=== PATIENT | female | born 1950 | race Caucasian/White ===

== ENCOUNTER 2017-01-01 00:04 | Emergency (ER) | payer MEDICARE ==
[2017-01-01] MEDS ORDERED: Sodium Chloride 0.9% 1000 ML 1,000 ML IV STA ×3 (00:40→02:20)
[2017-01-01] MEDS ORDERED: Hydromorphone 1 mg/ml Ampule IV ONE ×2 (00:42→03:32)
[2017-01-01] MEDS ORDERED: Phenergan 25 MG INJ IV ONE (00:42)
[2017-01-01] MEDS ORDERED: Sodium Chloride 0.9% 1000 ML 1,000 ML ONE ×3 (00:47→03:02)
[2017-01-01 00:50] LABS: Mean Cell Volume 92.6 fl (78-100); Mean Corpuscular Hemoglobin 30.9 pg (26-32); Mean Platelet Volume 11.2 fl (6-9.5); Platelet Count 177 K/mm3 (150-450); Red Blood Count 4.59 M/mm3 (4.1-5.4); Red Cell Distribution Width 13.9 % (11.5-14.0); White Blood Count 10.4 K/mm3 (4.0-10.5)
--- NOTE | 2017-01-01 00:51 | ERPHSYRPT ---
- History of Present Illness Time Seen by Provider: 01/01/17 00:17 Source: patient Exam Limitations: no limitations Patient Subjective Stated Complaint: STATES PASSED OUT TONIGHT.. PT STATES FEELING WEAK. HAS HAD N/V/D. STATES SHE WAS TAKEN OFF TRAMADOL ON FRIDAY. HAS HAD THE VOMITING SINCE BEING TAKEN OFF. DIFFICULTY WALKING. HAS HAD BACK PAIN. Triage Nursing Assessment: ALERT AND ORIENTED. WEAK GAIT. HUSNAND STATES PASSED OUT. DIFFICULTY WALKING WHEN TRANSFERING FROM W/C TO BED. UNSTEADY GAIT. C/O NAUSEA BUT IMPROVED SINCE GETTING A PILL FROM THE DOCTOR TODAY.. 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 VIDALES STRONG FLEX/EXTENSION BILATERAL LEGS. STATES EARS ARE CLOGGED UP. Physician History: FOR THE PAST WEEK PT HAS HAD VOMITING ~ 3X/DAY WITHOUT BLOOD AND DAILY DIARRHEA ; FOR THE PAST 4 DAYS DIZZINESS(VERTIGO); TONIGHT PT PASSED OUT IN HER ' S ARMS. PT HAS HAD CHRONIC BACK PAIN AND WAS TAKING TRAMADOL FOR THE PAST 18 MONTHS UNTIL 1 WEEKS AGO. Allergies/Adverse Reactions: hydrocodone bitartrate [From Vicodin] Allergy (Mild, Verified 10/21/14 00:12) Itching morphine Allergy (Unknown, Verified 10/21/14 00:12) pregabalin [From Lyrica] Allergy (Verified 10/21/14 00:12) Home Medications: Alprazolam [Xanax] 2 mg PO TID 03/24/14 [History] Lisinopril 5 mg [Zestril 5 MG] 5 mg PO DAILY 03/24/14 [History] Metoclopramide HCl 10 mg [Reglan 10 MG] 10 mg PO QID 03/24/14 [History] Ranitidine HCl 300 mg PO BID 03/24/14 [History] Simvastatin 20 mg PO DAILY 03/24/14 [History] Tramadol HCl 50 mg [Ultram 50 mg] 50 mg PO Q4HPRN 03/24/14 [History] Alendronate Sodium 70 mg [Fosamax 70 MG] 70 mg PO Q7D 06/03/14 [History] Aspirin 81 mg PO DAILY 06/03/14 [History] Gabapentin [Neurontin] 300 mg PO TID 06/03/14 [History] Insulin Aspart [NovoLOG Insulin] 4 unit SQ UD 06/03/14 [History] Insulin Aspart [NovoLOG Insulin] 15 unit SQ EVENING MEAL 06/03/14 [History] Magnesium Oxide 400 mg PO BID 06/03/14 [History] Hx Tetanus, Diphtheria Vaccination/Date Given: Yes Hx Influenza Vaccination/Date Given: Yes Hx Pneumococcal Vaccination/Date Given: Yes Immunizations Up to Date: Yes - Review of Systems Ears, Nose, & Throat: Other (EARS STOPPED UP) Respiratory: No Dyspnea Cardiac: No Chest Pain Abdominal/Gastrointestinal: Vomiting, Diarrhea Musculoskeletal: Back Pain Neurological: Dizziness, Other (SYNCOPE) All Other Systems: Reviewed and Negative - Past Medical History Pertinent Past Medical History: Yes Neurological History: No Pertinent History ENT History: No Pertinent History, Cataracts Cardiac History: Myocardial Infarction ([place]), Other Respiratory History: COPD Endocrine Medical History: Diabetes Type II Musculoskeletal History: Degenerative Disk Disease GI Medical History: GERD History: No Pertinent History Psycho-Social History: Depression Female Reproductive Disorders: Cervical Cancer Other Medical History: STENT X 2 CHRONIC BACK PAIN - Past Surgical History Past Surgical History: Yes Neuro Surgical History: No Pertinent History Cardiac: Cardiac Catheterization, Cardiac Stent Respiratory: No Pertinent History Gastrointestinal: Appendectomy, Cholecystectomy Genitourinary: No Pertinent History Musculoskeletal: Orthopedic Surgery Female Surgical History: Hysterectomy Other Surgical History: RIGHT HIP SURGERY, BACK SURGERY - Social History Smoking Status: Current every day smoker How long have you smoked: 40 Exposure to second hand smoke: No Drug Use: none Patient Lives Alone: No - Female History Hx Now: No - Nursing Vital Signs Nursing Vital Signs: Initial Vital Signs Temperature 97.8 F 01/01/17 00:07 Respiratory Rate 20 01/01/17 00:07 Blood Pressure 89/45 01/01/17 00:07 O2 Sat by Pulse Oximetry 95 01/01/17 00:07 Pain Scale Pain Intensity 7 - Physical Exam General Appearance: alert Eye Exam: PERRL/EOMI Ears, Nose, Throat Exam: TMs normal, dry mucous membranes Neck Exam: normal inspection Respiratory Exam: lungs clear Cardiovascular Exam: normal heart sounds Gastrointestinal/Abdomen Exam: soft, other (B.S. MODERATELY HYPERACTIVE AND NORMOTONIC) Back Exam: normal range of motion, No vertebral tenderness Extremity Exam: normal inspection, normal range of motion, No pedal edema Neurologic Exam: alert, cooperative, sensation nml, No motor deficits Skin Exam: warm, dry SpO2 Interpretation: normal SpO2: 95 Oxygen Delivery: Room Air - Course Nursing assessment & vital signs reviewed: Yes Ordered Tests: Active Orders 24 hr Category Date Time Status Customer Solutions Supervisor STAT Care 01/01/17 00:41 Active EKG-ER Only STAT Care 01/01/17 00:40 Active EKG-ER Only STAT Care 01/01/17 03:20 Active IV Insertion STAT Care 01/01/17 00:40 Active Oxygen-ED Only NASAL CANNULA 2 lpm Care 01/01/17 00:40 Active Pulse Oximetry (ED) STAT Care 01/01/17 00:40 Active CHEST 2 VIEWS (PA AND LAT) Stat Exams 01/01/17 00:41 Taken AMYLASE Stat Lab 01/01/17 00:46 Completed BMP Stat Lab 01/01/17 04:02 Completed CBC W DIFF Stat Lab 01/01/17 00:46 Completed CMP Stat Lab 01/01/17 00:46 Completed CULTURE,URINE Stat Lab 01/01/17 02:42 Received LIPASE Stat Lab 01/01/17 00:46 Completed MAGNESIUM Stat Lab 01/01/17 00:46 Completed Manual Differential NC Stat Lab 01/01/17 00:46 Completed TROPONIN Q3H Lab 01/01/17 00:46 Completed TROPONIN Q3H Lab 01/01/17 04:02 Completed TROPONIN Q3H Lab 01/01/17 06:30 Ordered TROPONIN Q3H Lab 01/01/17 06:45 Ordered TROPONIN Q3H Lab 01/01/17 09:30 Ordered TROPONIN Q3H Lab 01/01/17 09:45 Ordered TROPONIN Q3H Lab 01/01/17 12:30 Ordered TROPONIN Q3H Lab 01/01/17 12:45 Ordered TROPONIN Q3H Lab 01/01/17 15:30 Ordered TROPONIN Q3H Lab 01/01/17 18:30 Ordered TROPONIN Q3H Lab 01/01/17 21:30 Ordered UA W/ MICROSCOPIC Stat Lab 01/01/17 02:42 Completed Medication Summary Generic Name Dose Route Start Last Admin Trade Name Freq PRN Reason Stop Dose Admin Tramadol HCl 50 mg 01/01/17 05:07 Ultram 50 Mg PO 01/01/17 05:08 STAT ONE Discontinued Medications Generic Name Dose Route Start Last Admin Trade Name Freq PRN Reason Stop Dose Admin Hydromorphone HCl 0.5 mg 01/01/17 00:42 01/01/17 02:44 Hydromorphone 1 Mg/Ml Ampule IV 01/01/17 00:43 0.5 mg STAT ONE Administration Hydromorphone HCl Confirm 01/01/17 02:38 Hydromorphone 1 Mg/Ml Ampule Administered 01/01/17 02:39 Dose 1 mg .ROUTE .STK-MED ONE Hydromorphone HCl 1 mg 01/01/17 03:32 01/01/17 03:44 Hydromorphone 1 Mg/Ml Ampule IV 01/01/17 03:33 1 mg STAT ONE Administration Hydromorphone HCl Confirm 01/01/17 03:38 Hydromorphone 1 Mg/Ml Ampule Administered 01/01/17 03:39 Dose 1 mg .ROUTE .STK-MED ONE Sodium Chloride 1,000 mls @ 999 mls/hr 01/01/17 00:40 01/01/17 00:47 Sodium Chloride 0.9% 1000 Ml IV 01/01/17 01:40 999 mls/hr .Q1H1M STA Administration Sodium Chloride Confirm 01/01/17 00:47 Sodium Chloride 0.9% 1000 Ml Administered 01/01/17 00:48 Dose 1,000 mls @ ud .ROUTE .STK-MED ONE Sodium Chloride 1,000 mls @ 999 mls/hr 01/01/17 01:48 01/01/17 01:57 Sodium Chloride 0.9% 1000 Ml IV 01/01/17 02:48 999 mls/hr .Q1H1M STA Administration Sodium Chloride Confirm 01/01/17 01:56 Sodium Chloride 0.9% 1000 Ml Administered 01/01/17 01:57 Dose 1,000 mls @ ud .ROUTE .STK-MED ONE Sodium Chloride 1,000 mls @ 999 mls/hr 01/01/17 02:20 01/01/17 03:04 Sodium Chloride 0.9% 1000 Ml IV 01/01/17 03:20 999 mls/hr .Q1H1M STA Administration Sodium Chloride Confirm 01/01/17 03:02 Sodium Chloride 0.9% 1000 Ml Administered 01/01/17 03:03 Dose 1,000 mls @ ud .ROUTE .STK-MED ONE Ceftriaxone Sodium/Dextrose 1 g in 50 mls @ 100 mls/hr 01/01/17 03:19 03:44 Rocephin 1 Gm-D5w 50 Ml Bag IV 01/01/17 03:48 100 mls/hr STAT STA Administration Ceftriaxone Sodium/Dextrose Confirm 01/01/17 03:38 Rocephin 1 Gm-D5w 50 Ml Bag Administered 01/01/17 03:39 Dose 1 g in 50 mls @ ud IV .STK-MED ONE Promethazine HCl 12.5 mg 01/01/17 00:42 01/01/17 02:44 Phenergan 25 Mg Inj IV 01/01/17 00:43 12.5 mg STAT ONE Administration Promethazine HCl Confirm 01/01/17 02:37 Phenergan 25 Mg Inj Administered 01/01/17 02:38 Dose 25 mg .ROUTE .STK-MED ONE Lab/Rad Data: Laboratory Result Diagrams 01/01/17 00:46 01/01/17 04:02 Laboratory Results 01/01/17 01/01/17 01/01/17 Range/Units 04:02 04:02 02:42 WBC (4.0-10.5) K/mm3 RBC (4.1-5.4) M/mm3 Hgb (12.0-16.0) gm/dl Hct (35-47) % MCV (78-100) fl MCH (26-32) pg MCHC (32-36) g/dl RDW (11.5-14.0) % Plt Count (150-450) K/mm3 MPV (6-9.5) fl Sodium 146 H (136-145) mEq/L Potassium 3.2 L (3.5-5.1) mEq/L Chloride 111 H (98-107) mEq/L Carbon Dioxide 26.3 (21-32) mEq/L Anion Gap 11.5 (5-15) MEQ/L BUN 30 H (9-20) mg/dL Creatinine 0.93 (0.55-1.30) mg/dl Estimated GFR > 60 ML/MIN Glucose 76 (70-110) MG/DL Calcium 7.6 L (8.5-10.1) mg/dL Magnesium (1.8-2.4) mg/dL Total Bilirubin (0.2-1.0) mg/dL AST (15-37) U/L ALT (12-78) U/L Alkaline Phosphatase (46-116) U/L Troponin I 0.056 (0.000-0.056) ng/ml Serum Total Protein (6.4-8.2) gm/dL Albumin (3.4-5.0) g/dL Amylase (25-115) U/L Lipase (73-393) U/L Ur Collection Type VOID Urine Color YELLOW (YELLOW) Urine Appearance CLEAR (CLEAR) Urine pH 6.0 (5-6) Ur Specific [place] 1.010 (1.005-1.025) Urine Protein 30 (Negative) Urine Ketones SMALL (NEGATIVE) Urine Blood 50 (0-5) George/ul Urine Nitrite NEGATIVE (NEGATIVE) Urine Bilirubin NEGATIVE (NEGATIVE) Urine Urobilinogen NORMAL (0-1) mg/dL Ur Leukocyte Esterase 1+ (NEGATIVE) Urine Microscopic RBC 2-5 (0-2) /HPF Urine Microscopic WBC 10-15 (0-5) /HPF Ur Epithelial Cells MODERATE (FEW) /HPF Urine Bacteria MODERATE (NEGATIVE) /HPF Urine Mucus SLIGHT (NEGATIVE) /HPF Urine Culture Reflexed YES (NO) Urine Glucose 100 (NEGATIVE) mg/dL Specimen Received 01/01/17 0245 01/01/17 01/01/17 01/01/17 Range/Units 00:46 00:46 00:46 WBC 10.4 (4.0-10.5) K/mm3 RBC 4.59 (4.1-5.4) M/mm3 Hgb 14.2 (12.0-16.0) gm/dl Hct 42.5 (35-47) % MCV 92.6 (78-100) fl MCH 30.9 (26-32) pg MCHC 33.4 (32-36) g/dl RDW 13.9 (11.5-14.0) % Plt Count 177 (150-450) K/mm3 MPV 11.2 H (6-9.5) fl Sodium 139 (136-145) mEq/L Potassium 3.8 (3.5-5.1) mEq/L Chloride 101 (98-107) mEq/L Carbon Dioxide 28.6 (21-32) mEq/L Anion Gap 13.0 (5-15) MEQ/L BUN 39 H (9-20) mg/dL Creatinine 1.58 H (0.55-1.30) mg/dl Estimated GFR 35 ML/MIN Glucose 168 H (70-110) MG/DL Calcium 9.2 (8.5-10.1) mg/dL Magnesium 1.9 (1.8-2.4) mg/dL Total Bilirubin 0.40 (0.2-1.0) mg/dL AST 24 (15-37) U/L ALT 19 (12-78) U/L Alkaline Phosphatase 80 (46-116) U/L Troponin I 0.049 (0.000-0.056) ng/ml Serum Total Protein 6.1 L (6.4-8.2) gm/dL Albumin 3.1 L (3.4-5.0) g/dL Amylase 25 (25-115) U/L Lipase 54 L (73-393) U/L Ur Collection Type Urine Color (YELLOW) Urine Appearance (CLEAR) Urine pH (5-6) Ur Specific [place] (1.005-1.025) Urine Protein (Negative) Urine Ketones (NEGATIVE) Urine Blood (0-5) George/ul Urine Nitrite (NEGATIVE) Urine Bilirubin (NEGATIVE) Urine Urobilinogen (0-1) mg/dL Ur Leukocyte Esterase (NEGATIVE) Urine Microscopic RBC (0-2) /HPF Urine Microscopic WBC (0-5) /HPF Ur Epithelial Cells (FEW) /HPF Urine Bacteria (NEGATIVE) /HPF Urine Mucus (NEGATIVE) /HPF Urine Culture Reflexed (NO) Urine Glucose (NEGATIVE) mg/dL Specimen Received - Progress Progress Note: 01/01/17 05:09 REPEAT EKG AT 0405: NSR AT 62, NORMAL AXIS; NO SIGNIFICANT CHANGE FROM 0117. REPEAT TROPONIN I = 0.056(INITIAL TROPONIN I = 0.049). PT REFUSES HOSPITALIZATION. REPEAT BUN/CRE = 30/0.93(WAS 39/1.58). - Departure Time of Disposition: 05:15 Departure Disposition: Home Clinical Impression: DEHYDRATION, UTI, SYNCOPE, VOMITING, DIARRHEA, CHRONIC BACK PAIN, DIZZINESS, COPD, DM, GERD, DEPRESSION Condition: Stable Critical Care Time: No Referrals: KERI ANTHONY [Primary Care Provider] - Instructions: Fainting, Urinary Tract Infection (UTI), Diarrhea and Traveler's Diarrhea -- Adult, Vomiting -- Adult Additional Instructions: FOLLOW UP WITH PRIVATE DOCTOR TOMORROW. Prescriptions: Promethazine HCl 25 mg [Phenergan 25 mg] 25 mg PO Q4H PRN PRN #14 tablet PRN Reason: Nausea/Vomiting Smz/Tmp Ds Tablet [Bactrim Ds Tablet] 1 udtab PO BID #20 tablet
[2017-01-01 00:58] LABS: ALBUMIN 3.1 g/dL (3.4-5.0); BILIRUBIN,TOTAL 0.4 mg/dL (0.2-1.0); Carbon Dioxide 28.6 mEq/L (21-32); MAGNESIUM 1.9 mg/dL (1.8-2.4); Potassium 3.8 mEq/L (3.5-5.1); Total Protein 6.1 gm/dL (6.4-8.2)
[2017-01-01] MEDS ORDERED: Phenergan 25 MG INJ ONE (02:37)
[2017-01-01] MEDS ORDERED: Hydromorphone 1 mg/ml Ampule ONE ×2 (02:38→03:38)
[2017-01-01 02:59] LABS: Bilirubin NEGATIVE (NEGATIVE); Blood 50 Ery/ul (0-5); Collection Type VOID; Glucose 100 mg/dL (NEGATIVE); Leukocyte Esterase 1+ (NEGATIVE)
[2017-01-01 03:00] LABS: ADD URINE CULTURE? YES (NO); Bacteria MODERATE /HPF (NEGATIVE); COMPLETE URINE MICROSCOPIC? YES; Epithelial Cells MODERATE /HPF (FEW); Mucus SLIGHT /HPF (NEGATIVE)
[2017-01-01] MEDS ORDERED: ROCEPHIN 1 Gm-D5w 50 ml Bag** 1 G/50 ML IVPB IV STA (03:19)
[2017-01-01] MEDS ORDERED: ROCEPHIN 1 Gm-D5w 50 ml Bag** 1 G/50 ML IVPB IV ONE (03:38)
[2017-01-01 04:46] LABS: ANION GAP 11.5 MEQ/L (5-15); BLOOD UREA NITROGEN 30 mg/dL (9-20); CHLORIDE 111 mEq/L (98-107); Carbon Dioxide 26.3 mEq/L (21-32); Glucose 76 MG/DL (70-110); Potassium 3.2 mEq/L (3.5-5.1); SODIUM 146 mEq/L (136-145)
[2017-01-01] MEDS ORDERED: ULTRAM 50 MG PO ONE (05:07)
[2017-01-01] MEDS ORDERED: Klor Con 10 MEQ PO ONE ×2 (05:15→05:22)
[2017-01-01] MEDS ORDERED: ULTRAM 50 MG ONE (05:20)
[2017-01-01 05:42] VITALS: BP 135/47; PULSE 63; O2SAT 97
--- NOTE | 2017-01-01 09:06 | XRAY ---
Indication: Syncope and weakness. Comparison: June 03, 2014. AP/lateral chest again hyperinflated and clear. Heart and mediastinal structures stable and within normal limits. Bony thorax intact again with mild osteopenia and remote T7 compression fracture. Impression: Stable nonacute chest with chronic features.
== END 2017-01-01 05:43 | disposition home or self-care (01) ==
LOC: ED 00:04
DX: E86.0 Dehydration (principal); N39.0 Urinary tract infection, site not specified; R55 Syncope and collapse; R11.10 Vomiting, unspecified; R19.7 Diarrhea, unspecified; M54.9 Dorsalgia, unspecified; G89.29 Other chronic pain; R42 Dizziness and giddiness; J44.9 Chronic obstructive pulmonary disease, unspecified; E11.9 Type 2 diabetes mellitus without complications; K21.9 Gastro-esophageal reflux disease without esophagitis; F32.9 Major depressive disorder, single episode, unspecified; I25.2 Old myocardial infarction; Z79.899 Other long term (current) drug therapy; Z79.4 Long term (current) use of insulin
CPT/HCPCS: 36000; 36415; 71020; 80048; 80053; 81000; 82150; 83690; 83735; 84484; 85025; 87086; 93005; 93041; 96360; 96361; 96365; 96374; 96375; 96376; 99285; J0696; J1170; J2550; A9270-GY

== ENCOUNTER 2017-02-26 18:49 | Observation (INO) | payer MEDICARE ==
[2017-02-26] MEDS ORDERED: TYLENOL 325 MG PO STA (19:35)
[2017-02-26] MEDS ORDERED: Sodium Chloride 0.9% 500 ML 500 ML IV ONE ×2 (19:39→19:45)
[2017-02-26 19:41] LABS: Lactic Acid 1.9 (0.4-2.0)
[2017-02-26 19:42] LABS: BASOPHIL % 0.1 % (0.0-0.4); Eosinophil % 0.2 % (0.00-5.0); Granulocytes % 92.2 % (36.0-66.0); Lymphocytes % 5.9 % (24.0-44.0); Mean Cell Volume 94.7 fl (78-100); Mean Corpuscular Hemoglobin 31.5 pg (26-32); Mean Platelet Volume 11.4 fl (6-9.5); Monocytes % 1.6 % (0.0-12.0); Platelet Count 133 K/mm3 (150-450); Red Blood Count 4.73 M/mm3 (4.1-5.4); Red Cell Distribution Width 14.3 % (11.5-14.0); White Blood Count 12.9 K/mm3 (4.0-10.5)
[2017-02-26] MEDS ORDERED: TYLENOL 325 MG ONE (19:44)
[2017-02-26] MEDS ORDERED: Sodium Chloride 0.9% 1000 ML 1,000 ML IV SCH (19:45)
[2017-02-26 19:59] LABS: ALBUMIN 3.6 g/dL (3.4-5.0); ALKALINE PHOSPHATASE 104 U/L (46-116); ANION GAP 15.5 MEQ/L (5-15); BLOOD UREA NITROGEN 14 mg/dL (9-20); CHLORIDE 101 mEq/L (98-107); Carbon Dioxide 27.5 mEq/L (21-32); Glucose 196 MG/DL (70-110); Potassium 4.3 mEq/L (3.5-5.1); SGOT/AST 21 U/L (15-37); SGPT/ALT 23 U/L (12-78); SODIUM 140 mEq/L (136-145)
--- NOTE | 2017-02-26 20:40 | ERPHSYRPT ---
- History of Present Illness Time Seen by Provider: 02/26/17 19:20 Source: patient, family Exam Limitations: clinical condition Patient Subjective Stated Complaint: per has been having shaking spells and just prior to arrival began talking "all out of sorts" Triage Nursing Assessment: skin warm to touch, client oriented to place and person. States blood sugars were low at home. Generalized weakness on assessment , assist x 2 to stretcher Physician History: Pt was apparently seen by her physician yesterday. She started shaking this afternoon, while looking for homes with her . He checked her blood sugar , it was 207. She denies any complaints, no pain, headaches, no cough, chest pain or SOB, nausea, vomiting, she has chronic diarrhea, denies current bloody or black stools other changes. She became confused few hours ago, did not take any antibiotics or other medications. She is alert, not lethargic, slightly confused. 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 Associated Symptoms: denies symptoms International travel in last 2 weeks: No Allergies/Adverse Reactions: hydrocodone bitartrate [From Vicodin] Allergy (Mild, Verified 10/21/14 00:12) Itching morphine Allergy (Unknown, Verified 10/21/14 00:12) pregabalin [From Lyrica] Allergy (Verified 10/21/14 00:12) Home Medications: Alprazolam [Xanax] 2 mg PO TID 03/24/14 [History] Lisinopril 5 mg [Zestril 5 MG] 5 mg PO DAILY 03/24/14 [History] Metoclopramide HCl 10 mg [Reglan 10 MG] 10 mg PO QID 03/24/14 [History] Ranitidine HCl 300 mg PO BID 03/24/14 [History] Simvastatin 20 mg PO DAILY 03/24/14 [History] Tramadol HCl 50 mg [Ultram 50 mg] 50 mg PO Q4HPRN 03/24/14 [History] Alendronate Sodium 70 mg [Fosamax 70 MG] 70 mg PO Q7D 06/03/14 [History] Aspirin 81 mg PO DAILY 06/03/14 [History] Gabapentin [Neurontin] 300 mg PO TID 06/03/14 [History] Insulin Aspart [NovoLOG Insulin] 4 unit SQ UD 06/03/14 [History] Insulin Aspart [NovoLOG Insulin] 15 unit SQ EVENING MEAL 06/03/14 [History] Magnesium Oxide 400 mg PO BID 06/03/14 [History] Hx Tetanus, Diphtheria Vaccination/Date Given: Yes Hx Influenza Vaccination/Date Given: Yes Hx Pneumococcal Vaccination/Date Given: Yes Immunizations Up to Date: Yes - Review of Systems Constitutional: Fever, Weakness Ears, Nose, & Throat: No Symptoms Respiratory: No Symptoms All Other Systems: Reviewed and Negative - Past Medical History Pertinent Past Medical History: Yes Neurological History: No Pertinent History ENT History: No Pertinent History, Cataracts Cardiac History: Myocardial Infarction ([place]), Other Respiratory History: COPD Endocrine Medical History: Diabetes Type II Musculoskeletal History: Degenerative Disk Disease GI Medical History: GERD History: No Pertinent History Psycho-Social History: Depression Female Reproductive Disorders: Cervical Cancer Other Medical History: STENT X 2 CHRONIC BACK PAIN - Past Surgical History Past Surgical History: Yes Neuro Surgical History: No Pertinent History Cardiac: Cardiac Catheterization, Cardiac Stent Respiratory: No Pertinent History Gastrointestinal: Appendectomy, Cholecystectomy Genitourinary: No Pertinent History Musculoskeletal: Orthopedic Surgery Female Surgical History: Hysterectomy Other Surgical History: RIGHT HIP SURGERY, BACK SURGERY - Social History Smoking Status: Current every day smoker How long have you smoked: 40 Exposure to second hand smoke: No Drug Use: none Patient Lives Alone: No - Female History Hx Last Menstrual Period: post menopausal Hx Now: No - Nursing Vital Signs Nursing Vital Signs: Initial Vital Signs Temperature 102.9 F 02/26/17 19:18 Pulse Rate 119 H 02/26/17 19:18 Respiratory Rate 24 02/26/17 19:18 Blood Pressure 172/68 02/26/17 19:18 O2 Sat by Pulse Oximetry 96 02/26/17 19:18 Pain Scale Pain Intensity 0 - Physical Exam General Appearance: no apparent distress Eye Exam: eyes nml inspection ENT Exam: normal ENT inspection, pharynx normal Neck Exam: normal inspection, non-tender, supple, trachea midline, No JVD Respiratory Exam: normal breath sounds, chest non-tender, lungs clear, no respiratory distress Cardiovascular/Chest Exam: normal heart sounds, regular rate/rhythm, normal peripheral pulses, No murmur, No edema Gastrointestinal/Abdominal Exam: soft, non tender, no distention, no mass Extremity Exam: non-tender Neurologic Exam: alert, cooperative, open hearth laborer II-XII nml as tested, normal mood/ affect, No motor deficits Skin Exam: normal color, warm, dry, No rash Lymphatic: No adenopathy SpO2: 96 Oxygen Delivery: Room Air - Course Nursing assessment & vital signs reviewed: Yes EKG Interpreted by Me: RATE, NORMAL AXIS, Non-specific ST Changes - Radiology Exams Chest X-ray Interpretation: Interpreted by me, Negative Ordered Tests: Active Orders 24 hr Category Date Time Status EKG-ER Only STAT Care 02/26/17 19:33 Active IV Insertion STAT Care 02/26/17 19:38 Active CHEST 2 VIEWS (PA AND LAT) Stat Exams 02/26/17 Taken HEAD WITHOUT CONTRAST [CT] Stat Exams 02/26/17 21:58 Ordered BLOOD CULTURE Stat Lab 02/26/17 19:30 Received CBC W DIFF Stat Lab 02/26/17 19:30 Completed CMP Stat Lab 02/26/17 19:30 Completed CULTURE, THROAT Stat Lab 02/26/17 20:34 Received CULTURE,URINE Stat Lab 02/26/17 21:25 Received Lactic Acid Stat Lab 02/26/17 19:38 Completed Lactic Acid Stat Lab 02/26/17 21:41 Completed STREP SCREEN-BETA A Stat Lab 02/26/17 20:34 Completed UA W/ MICROSCOPIC Stat Lab 02/26/17 21:25 Completed Transfer Order Routine Transfer 02/26/17 Ordered Medication Summary Discontinued Medications Generic Name Dose Route Start Last Admin Trade Name Jorgeq PRN Reason Stop Dose Admin Acetaminophen 650 mg 02/26/17 19:35 02/26/17 19:50 Tylenol 325 Mg PO 02/26/17 19:36 650 mg STAT STA Administration Acetaminophen Confirm 02/26/17 19:44 Tylenol 325 Mg Administered 02/26/17 19:45 Dose 650 mg .ROUTE .STK-MED ONE Sodium Chloride 500 mls @ 250 mls/hr 02/26/17 19:39 02/26/17 19:52 Sodium Chloride 0.9% 500 Ml IV 02/26/17 21:38 250 mls/hr .Q2H ONE Administration Sodium Chloride Confirm 02/26/17 19:45 Sodium Chloride 0.9% 500 Ml Administered 02/26/17 19:46 Dose 500 mls @ ud IV .STK-MED ONE Ceftriaxone Sodium/Dextrose 1 g in 50 mls @ 100 mls/hr 02/26/17 21:58 22:04 Rocephin 1 Gm-D5w 50 Ml Bag IV 02/26/17 22:27 100 mls/hr STAT STA Administration Ceftriaxone Sodium/Dextrose Confirm 02/26/17 22:00 Rocephin 1 Gm-D5w 50 Ml Bag Administered 02/26/17 22:01 Dose 1 g in 50 mls @ ud IV .STK-MED ONE Lab/Rad Data: Laboratory Result Diagrams 02/26/17 19:30 02/26/17 19:30 Laboratory Results 02/26/17 02/26/17 02/26/17 Range/Units 21:41 21:25 20:34 WBC (4.0-10.5) K/mm3 RBC (4.1-5.4) M/mm3 Hgb (12.0-16.0) gm/dl Hct (35-47) % MCV (78-100) fl MCH (26-32) pg MCHC (32-36) g/dl RDW (11.5-14.0) % Plt Count (150-450) K/mm3 MPV (6-9.5) fl Gran % (36.0-66.0) % Lymphocytes % (24.0-44.0) % Monocytes % (0.0-12.0) % Eosinophils % (0.00-5.0) % Basophils % (0.0-0.4) % Basophils # (0-0.4) Sodium (136-145) mEq/L Potassium (3.5-5.1) mEq/L Chloride (98-107) mEq/L Carbon Dioxide (21-32) mEq/L Anion Gap (5-15) MEQ/L BUN (9-20) mg/dL Creatinine (0.55-1.30) mg/dl Estimated GFR ML/MIN Glucose (70-110) MG/DL Lactic Acid 1.5 (0.4-2.0) Calcium (8.5-10.1) mg/dL Total Bilirubin (0.2-1.0) mg/dL AST (15-37) U/L ALT (12-78) U/L Alkaline Phosphatase (46-116) U/L Serum Total Protein (6.4-8.2) gm/dL Albumin (3.4-5.0) g/dL Ur Collection Type VOID Urine Color YELLOW (YELLOW) Urine Appearance CLOUDY (CLEAR) Urine pH 6.0 (5-6) Ur Specific [place] 1.015 (1.005-1.025) Urine Protein 500 (Negative) Urine Ketones NEGATIVE (NEGATIVE) Urine Blood 250 (0-5) George/ul Urine Nitrite POSITIVE (NEGATIVE) Urine Bilirubin NEGATIVE (NEGATIVE) Urine Urobilinogen NORMAL (0-1) mg/dL Ur Leukocyte Esterase 2+ (NEGATIVE) Urine Microscopic RBC 25-50 (0-2) /HPF Urine Microscopic WBC 25-50 (0-5) /HPF Ur Epithelial Cells MODERATE (FEW) /HPF Urine Bacteria PACKED (NEGATIVE) /HPF Urine Mucus MODERATE (NEGATIVE) /HPF Urine Culture Reflexed YES (NO) Urine Glucose NEGATIVE (NEGATIVE) mg/dL Streptococcus Screen NEGATIVE (Negative) Specimen Received 02/26/17 [id number] 02/26/17 02/26/17 02/26/17 Range/Units 19:38 19:30 19:30 WBC 12.9 H (4.0-10.5) K/mm3 RBC 4.73 (4.1-5.4) M/mm3 Hgb 14.9 (12.0-16.0) gm/dl Hct 44.8 (35-47) % MCV 94.7 (78-100) fl MCH 31.5 (26-32) pg MCHC 33.3 (32-36) g/dl RDW 14.3 H (11.5-14.0) % Plt Count 133 L (150-450) K/mm3 MPV 11.4 H (6-9.5) fl Gran % 92.2 H (36.0-66.0) % Lymphocytes % 5.9 L (24.0-44.0) % Monocytes % 1.6 (0.0-12.0) % Eosinophils % 0.2 (0.00-5.0) % Basophils % 0.1 (0.0-0.4) % Basophils # 0.01 (0-0.4) Sodium 140 (136-145) mEq/L Potassium 4.3 (3.5-5.1) mEq/L Chloride 101 (98-107) mEq/L Carbon Dioxide 27.5 (21-32) mEq/L Anion Gap 15.5 H (5-15) MEQ/L BUN 14 (9-20) mg/dL Creatinine 0.93 (0.55-1.30) mg/dl Estimated GFR > 60 ML/MIN Glucose 196 H (70-110) MG/DL Lactic Acid 1.9 (0.4-2.0) Calcium 9.6 (8.5-10.1) mg/dL Total Bilirubin 0.80 (0.2-1.0) mg/dL AST 21 (15-37) U/L ALT 23 (12-78) U/L Alkaline Phosphatase 104 (46-116) U/L Serum Total Protein 7.0 (6.4-8.2) gm/dL Albumin 3.6 (3.4-5.0) g/dL Ur Collection Type Urine Color (YELLOW) Urine Appearance (CLEAR) Urine pH (5-6) Ur Specific [place] (1.005-1.025) Urine Protein (Negative) Urine Ketones (NEGATIVE) Urine Blood (0-5) George/ul Urine Nitrite (NEGATIVE) Urine Bilirubin (NEGATIVE) Urine Urobilinogen (0-1) mg/dL Ur Leukocyte Esterase (NEGATIVE) Urine Microscopic RBC (0-2) /HPF Urine Microscopic WBC (0-5) /HPF Ur Epithelial Cells (FEW) /HPF Urine Bacteria (NEGATIVE) /HPF Urine Mucus (NEGATIVE) /HPF Urine Culture Reflexed (NO) Urine Glucose (NEGATIVE) mg/dL Streptococcus Screen (Negative) Specimen Received - Progress Progress: improved Progress Note: 02/26/17 23:02 Pt became afebrile, blood pressure has been stable, improved mentally, not lethargic, denies any pain. I discussed the reulsts and her current condition with Dr Anthony, he agreed to admit her for observation, informed patient and her , they agreed. Discussed with : Sidney - Departure Time of Disposition: 23:03 Departure Disposition: Observation Clinical Impression: UTI (urinary tract infection) Qualifiers: Urinary tract infection type: site unspecified Hematuria presence: without hematuria Qualified Code(s): N39.0 - Urinary tract infection, site not specified Altered mental status, unspecified Qualifiers: Altered mental status type: unspecified Qualified Code(s): R41.82 - Altered mental status, unspecified Condition: Stable Critical Care Time: No Referrals: KERI ANTHONY [Primary Care Provider] -
[2017-02-26 21:45] LABS: Bilirubin NEGATIVE (NEGATIVE); Blood 250 Ery/ul (0-5); Collection Type VOID; Glucose NEGATIVE (NEGATIVE); Leukocyte Esterase 2+ (NEGATIVE)
[2017-02-26 21:46] LABS: COMPLETE URINE MICROSCOPIC? YES
[2017-02-26 21:47] LABS: ADD URINE CULTURE? YES (NO); Bacteria PACKED /HPF (NEGATIVE); Epithelial Cells MODERATE /HPF (FEW); Mucus MODERATE /HPF (NEGATIVE); WBC 25-50 /HPF (0-5)
[2017-02-26] MEDS ORDERED: ROCEPHIN 1 Gm-D5w 50 ml Bag** 1 G/50 ML IVPB IV STA (21:58)
[2017-02-26] MEDS ORDERED: ROCEPHIN 1 Gm-D5w 50 ml Bag** 1 G/50 ML IVPB IV ONE (22:00)
[2017-02-26] MEDS ORDERED: xanAX 0.5 MG ONE (23:05)
[2017-02-26] MEDS: XANAX 1 MG PO ONE (23:08)
[2017-02-26] MEDS ORDERED: PROVENTIL 2.5 MG/3 ML NEB IH PRN (23:48)
[2017-02-26] MEDS ORDERED: TYLENOL 325 MG PO PRN (23:48)
[2017-02-26] MEDS ORDERED: Zofran 4 MG/2 ML VIAL IV PRN (23:48)
[2017-02-27] MEDS: Sodium Chloride 0.9% 1000 ML 1,000 ML IV SCH ×3 (00:51→20:26)
[2017-02-27] MEDS: NovoLOG Insulin SQ PRN ×3 (04:19→22:07)
--- NOTE | 2017-02-27 08:46 | XRAY ---
Indication: Altered mental status. Multiple contiguous axial images obtained through the head without contrast. Comparison: January 24, 2012. Stable age-appropriate global atrophy and minimal periventricular degenerative micro-ischemia bilaterally. There is again small remote left thalamic lacunar infarct. No acute intracranial hemorrhage, abnormal extra-axial fluid collection, or mass effect. Fourth ventricle is midline without hydrocephalus. Bony calvarium intact. Visualized paranasal sinuses and mastoid air cells are clear. Impression: Stable nonacute senile brain with remote appearing left thalamic lacunar infarct. Comment: Preliminary interpretation was made by [facility]. No discrepancy. CTDI 68.51
--- NOTE | 2017-02-27 08:48 | XRAY ---
Indication: Fever and confusion. Comparison: January 01, 2017. AP/lateral chest unchanged again hyperinflated and clear. Heart is not enlarged. Vascularity normal. Bony thorax again demonstrate mild osteopenia and remote T7 compression fracture. No new/acute findings. Impression: Stable nonacute chest with chronic features.
--- NOTE | 2017-02-27 09:12 | PCM.HP ---
History of Present Illness - Chief Complaint Chief Complaint: UTI Date: 02/27/17 History of Present Illness: is a 66 year old female. with diabetes and coronary artery disease who began feeling weak and confused yesterday with shaking chills. Her brought her to the ED where she was found to have a febrile UTI and was very confused as well. SHe was given iv hydration and ceftraxone. Her confusion is improving but she is still very weak requires assistance up out of bed nauseated dry heaves currently unable to tolerate po and chronic diarrhea she was acutally checked for c.diff 3 days ago with this and it was negative. - Review of Systems Constitutional: Fever, Chills, Fatigue Eyes: No Symptoms Ears, Nose, & Throat: No Symptoms Respiratory: No Cough, No Short Of Breath Cardiac: No Chest Pain, No Edema, No Syncope Abdominal/Gastrointestinal: No Abdominal Pain, No Nausea, No Vomiting, No Diarrhea Genitourinary Symptoms: No Dysuria Musculoskeletal: No Back Pain, No Neck Pain Skin: No Rash Neurological: No Dizziness, No Focal Weakness, No Sensory Changes Psychological: No Symptoms Endocrine: No Symptoms Hematologic/Lymphatic: No Symptoms Immunological/Allergic: No Symptoms Medications & Allergies Home Medications: Home Medication List Alprazolam [Xanax] 2 mg PO TID 03/24/14 [History Confirmed 06/03/14] Lisinopril 5 mg [Zestril 5 MG] 5 mg PO DAILY 03/24/14 [History Confirmed 06/03/14] Metoclopramide HCl 10 mg [Reglan 10 MG] 10 mg PO QID 03/24/14 [History Confirmed 06/03/14] Ranitidine HCl 300 mg PO BID 03/24/14 [History Confirmed 06/03/14] Simvastatin 20 mg PO DAILY 03/24/14 [History Confirmed 06/03/14] Tramadol HCl 50 mg [Ultram 50 mg] 50 mg PO Q4HPRN 03/24/14 [History Confirmed 06/03/14] Insulin Glargine [Lantus Insulin] 20 unit SQ HS #0 unit 03/26/14 [Rx Confirmed 06/03/14] Alendronate Sodium 70 mg [Fosamax 70 MG] 70 mg PO Q7D 06/03/14 [History Confirmed 06/03/14] Aspirin 81 mg PO DAILY 06/03/14 [History Confirmed 06/03/14] Gabapentin [Neurontin] 300 mg PO TID 06/03/14 [History Confirmed 06/03/14] Insulin Aspart [NovoLOG Insulin] 4 unit SQ UD 06/03/14 [History Confirmed ] Insulin Aspart [NovoLOG Insulin] 15 unit SQ EVENING MEAL 06/03/14 [History Confirmed 06/03/14] Magnesium Oxide 400 mg PO BID 06/03/14 [History Confirmed 06/03/14] Nicotine 21 mg [Nicoderm CQ 21 MG] 21 mg TD DAILY #28 patch 06/04/14 [Rx] Promethazine HCl 25 mg [Phenergan 25 mg] 25 mg PO Q4H PRN PRN #14 tablet 01/01/17 [Rx] Smz/Tmp Ds Tablet [Bactrim Ds Tablet] 1 udtab PO BID #20 tablet 01/01/17 [ Rx] Allergies/Adverse Reactions: Allergies Allergy/AdvReac Type Severity Reaction Status Date / Time hydrocodone bitartrate Allergy Mild Itching Verified 10/21/14 00:12 [From Vicodin] morphine Allergy Unknown Verified 10/21/14 00:12 pregabalin [From Lyrica] Allergy Verified 10/21/14 00:12 - Past Medical History Past Medical History: Yes Neurological History: No Pertinent History ENT History: No Pertinent History, Cataracts Cardiac History: Myocardial Infarction ([place]), Other Respiratory History: COPD Endocrine Medical History: Diabetes Type II Musculoskelatal History: Degenerative Disk Disease GI Medical History: GERD History: No Pertinent History Pyscho-Social History: Depression Reproductive Disorders: Cervical Cancer Comment: STENT X 2 CHRONIC BACK PAIN - Female History Hx Last Menstrual Period: post menopausal Are you now?: No - Past Surgical History Past Surgical History: Yes Neuro Surgical History: No Pertinent History Cardiac History: Cardiac Catheterization, Cardiac Stent Respiratory Surgery: No Pertinent History GI Surgical History: Appendectomy, Cholecystectomy Genitourinary Surgical Hx: No Pertinent History Musculskeletal Surgical Hx: Orthopedic Surgery Female Surgical History: Hysterectomy Other Surgical History: RIGHT HIP SURGERY, BACK SURGERY - Social History Smoking Status: Current every day smoker How long have you smoked: 53 Exposure to second hand smoke: Yes Alcohol: None Drug Use: none - Physical Exam Vital Signs: Vital Signs - 24 hr Temp Pulse Resp BP Pulse Ox 02/27/17 07:09 100 02/27/17 06:53 97.6 F 62 16 135/63 98 02/27/17 04:31 60 16 98 02/27/17 04:00 97.9 F 61 15 116/54 100 02/26/17 23:46 97.8 F 78 12 76/51 88 L 02/26/17 23:10 84 24 90/46 98 02/26/17 23:04 96 02/26/17 22:00 100.8 F 02/26/17 21:51 90 24 123/52 92 L 02/26/17 21:03 100 H 20 96 02/26/17 20:45 110 H 26 H 97 02/26/17 19:18 102.9 F 119 H 24 172/68 96 Oxygen-Last 24 hours O2 Percentage 2 Liters = 28% O2 Percentage 2 Liters = 28% O2 Percentage 2 Liters = 28% General Appearance: mild distress, alert Neurologic Exam: alert, oriented x 3, cooperative, normal mood/affect, nml cerebellar function, nml station & gait, sensation nml, No motor deficits Eye Exam: PERRL/EOMI, eyes nml inspection Ears, Nose, Throat Exam: dry mucous membranes Neck Exam: normal inspection, non-tender, supple, full range of motion Respiratory Exam: rhonchi, No respiratory distress Cardiovascular Exam: regular rate/rhythm, normal heart sounds, normal peripheral pulses, tachycardia Gastrointestinal/Abdomen Exam: soft, normal bowel sounds, No tenderness, No distention, No mass Back Exam: normal inspection, normal range of motion, No CVA tenderness, No vertebral tenderness Extremity Exam: normal inspection, normal range of motion, pelvis stable Skin Exam: normal color, warm, dry, No rash Lymphatic Exam: No adenopathy Results - Labs Lab/Micro Results: Accuchecks Date 02/27/17 Time 04:16 Accucheck Value: 284 Accuchecks Date 02/27/17 Time 04:16 Accucheck Value: 284 - Other Procedures and Tests Respiratory Therapy 02/27/17 04:30 Oxygen NASAL CANNULA 2 lpm Respiratory Nebulizer UD Assessment/Plan (1) UTI (urinary tract infection) Current Visit: Yes Status: Acute Qualifiers: Urinary tract infection type: site unspecified Hematuria presence: without hematuria Qualified Code(s): N39.0 - Urinary tract infection, site not specified Assessment & Plan: of note I can't edit her home meds in the computer at this time the home med list in this document is not accurate she takes alprazolam 0.5 mg po bid and does not take tramadol she is also not taking any Bactrim or other antibiotics. she was started on questren but unsure if she has started it. will continue with iv hydation and rocephin monitor urine cultures control blood sugar monitor oxygenation with her heavy smoking history Code(s): N39.0 - URINARY TRACT INFECTION, SITE NOT SPECIFIED (2) Diabetes mellitus Current Visit: No Status: Acute Code(s): E11.9 - TYPE 2 DIABETES MELLITUS WITHOUT COMPLICATIONS (3) Tobacco abuse Current Visit: Yes Status: Acute Code(s): Z72.0 - TOBACCO USE (4) Coronary artery disease Current Visit: No Status: Acute Code(s): I25.10 - ATHSCL HEART DISEASE OF [place] CORONARY ARTERY W/O ANG PCTRS
[2017-02-27] MEDS ORDERED: ROCEPHIN 1 Gm-D5w 50 ml Bag** 1 G/50 ML IVPB IV SCH ×2 (10:00→22:00)
[2017-02-27] MEDS: QUESTRAN Light 4 GM Packet PO SCH ×2 (11:57→22:07)
[2017-02-27] MEDS: xanAX 0.5 MG PO SCH ×2 (11:58→22:07)
[2017-02-27] MEDS: SYNTHROID 25 MCG PO SCH (11:58)
[2017-02-27] MEDS: NEURONTIN 300 MG PO SCH ×2 (14:33→22:07)
[2017-02-27] MEDS ORDERED: Zocor 10MG PO SCH (22:00)
[2017-02-27] MEDS ORDERED: xanAX 0.25 MG PO SCH (22:00)
[2017-02-27] MEDS ORDERED: Lantus Insulin SQ SCH (22:00)
[2017-02-27] MEDS: XANAX 1 MG PO ONE (22:08)
[2017-02-28 06:00] LABS: BASOPHIL % 0.2 % (0.0-0.4); Eosinophil % 1.4 % (0.00-5.0); Granulocytes % 78.9 % (36.0-66.0); Lymphocytes % 11.4 % (24.0-44.0); Mean Cell Volume 97.2 fl (78-100); Mean Platelet Volume 12.1 fl (6-9.5); Monocytes % 8.1 % (0.0-12.0); Platelet Count 108 K/mm3 (150-450); Red Blood Count 3.21 M/mm3 (4.1-5.4); Red Cell Distribution Width 14.4 % (11.5-14.0); White Blood Count 13.4 K/mm3 (4.0-10.5)
[2017-02-28 06:06] LABS: Mean Corpuscular Hemoglobin 31.4 pg (26-32)
[2017-02-28 06:47] LABS: ALBUMIN 1.9 g/dL (3.4-5.0); ALKALINE PHOSPHATASE 68 U/L (46-116); ANION GAP 9.2 MEQ/L (5-15); BLOOD UREA NITROGEN 24 mg/dL (9-20); CHLORIDE 107 mEq/L (98-107); Carbon Dioxide 24.5 mEq/L (21-32); Glucose 269 MG/DL (70-110); Potassium 3.9 mEq/L (3.5-5.1); SGOT/AST 29 U/L (15-37); SGPT/ALT 19 U/L (12-78); SODIUM 137 mEq/L (136-145); Total Protein 4.9 gm/dL (6.4-8.2)
[2017-02-28] MEDS: Sodium Chloride 0.9% 1000 ML 1,000 ML IV SCH (06:53)
[2017-02-28 07:36] VITALS: BP 131/58; PULSE 73; O2SAT 92
--- NOTE | 2017-02-28 07:48 | PCM.DCORD ---
- Discharge Discharge Date: 02/28/17 Disposition: Home, Self-Care Condition: Stable Prescriptions: New Cephalexin Mh 500 mg [Keflex 500 mg] 500 mg PO TID #21 capsule Continue Pravastatin Sodium [Pravachol] 10 mg PO DAILY Levothyroxine Sodium 25 Mcg [Synthroid 25 Mcg] 25 mcg PO DAILY Insulin Glargine,Hum.rec.anlog [Lantus] 25 unit SQ HS Gabapentin 300 mg PO TID Alprazolam 0.25 mg [xanAX 0.25 MG] 0.5 mg PO BID Cholestyramine Light 4 gm [QUESTRAN Light 4 GM Packet] 4 gm PO BID Changed Insulin Aspart [NovoLOG Insulin] 10 units SQ AC #0 Follow up with: KERI ANTHONY [Primary Care Provider] -
[2017-02-28] MEDS: xanAX 0.5 MG PO SCH (07:50)
[2017-02-28] MEDS: NovoLOG Insulin SQ PRN (07:50)
[2017-02-28] MEDS: NEURONTIN 300 MG PO SCH (07:50)
[2017-02-28] MEDS: SYNTHROID 25 MCG PO SCH (07:50)
[2017-02-28] MEDS: QUESTRAN Light 4 GM Packet PO SCH (07:50)
[2017-02-28] MEDS ORDERED: NON-FORMULARY ITEM (Pravastatin Sodium [Pravachol] 10 MG) PO SCH (10:00)
--- NOTE | 2017-03-03 21:16 | PCM.DS ---
Discharge Summary Date of Admission: 02/26/17 23:40 Date of Discharge: 02/28/17 Admitting Physician: KERI ANTHONY Primary Care Provider: KERI ANTHONY Allergies Allergies hydrocodone bitartrate [From Vicodin] Allergy (Mild, Verified 10/21/14 00:12) Itching morphine Allergy (Unknown, Verified 10/21/14 00:12) pregabalin [From Lyrica] Allergy (Verified 10/21/14 00:12) Hospital Summary - Hospital Course Hospital Course: She had abrupt onset chills and confusion and was brought to ED found to be febrile with luekocytosis and confusion qualified for sepsis at this time had normal lactic acid was treated with fluids and iv ceftriaxone and showed excellent improvement. She was feeling back to herself and stable for d/c juan francisco on 02/28/17. the urine culture is still pending and she was empirically d/c on keflex with outpatient f/u. the night of admission she did not receive her routine lantus due to her illness and did not get her routine scheduled ac novolog only sliding scale as the concern for her not eating initially, thus her glucose spiked to the 500's by the evening the night after admission this improved well with restarting of her lantus and continued her sliding scale. She will go back to her ac novolog with sliding scale and her regular lantus at discharge. - Vitals & Intake/Output Vital Signs: Vital Signs Temperature 97.8 F 02/28/17 07:35 Pulse Rate 73 02/28/17 07:35 Respiratory Rate 20 02/28/17 07:35 Blood Pressure 131/58 02/28/17 07:35 O2 Sat by Pulse Oximetry 92 L 02/28/17 07:35 Oxygen-Last Documented O2 Percentage 2 Liters = 28% - Lab Result Diagrams: 02/28/17 05:25 02/28/17 05:25 - Procedures and Test Procedures and Tests throughout Hospitalization: Therapy Orders & Screens 02/27/17 00:11 Smoking Cessation Education ONCE Comment: Diagnosis: UTI Smoking Status: Current every day smoker How long have you smoked: 53 Have you smoked in the past 12 months: Yes Approximately how many cigarettes per day: 40 Do you dip or chew tobacco: No 02/27/17 04:30 Oxygen NASAL CANNULA 2 lpm Comment: Diagnosis: UTI Respiratory Nebulizer UD Comment: albuterol q2prn Diagnosis: UTI Discharge Exam General Appearance: no apparent distress, alert, thin Neurologic Exam: alert, oriented x 3, cooperative, normal mood/affect, nml cerebellar function, sensation nml, No motor deficits Skin Exam: normal color, warm, dry Eye Exam: PERRL, EOMI, eyes nml inspection Ears, Nose, Throat Exam: normal ENT inspection, pharynx normal, moist mucous membranes Neck Exam: normal inspection, non-tender, supple, full range of motion Respiratory Exam: normal breath sounds, lungs clear, No respiratory distress Cardiovascular Exam: regular rate/rhythm, normal heart sounds Gastrointestinal/Abdomen Exam: soft, No tenderness, No mass Extremity Exam: normal inspection, normal range of motion Back Exam: normal inspection, normal range of motion, No CVA tenderness, No vertebral tenderness Pelvic Exam: deferred Rectal Exam: deferred Final Diagnosis/Problem List - Final Discharge Diagnosis/Problem (1) UTI (urinary tract infection) Status: Acute (2) Sepsis Status: Acute (3) Diabetes mellitus Status: Chronic (4) Tobacco abuse Status: Acute (5) Coronary artery disease Status: Chronic - Discharge Disposition: Home, Self-Care Condition: Stable Prescriptions: New Cephalexin Mh 500 mg [Keflex 500 mg] 500 mg PO TID #21 capsule Continue Pravastatin Sodium [Pravachol] 10 mg PO DAILY Levothyroxine Sodium 25 Mcg [Synthroid 25 Mcg] 25 mcg PO DAILY Insulin Glargine,Hum.rec.anlog [Lantus] 25 unit SQ HS Gabapentin 300 mg PO TID Alprazolam 0.25 mg [xanAX 0.25 MG] 0.5 mg PO BID Cholestyramine Light 4 gm [QUESTRAN Light 4 GM Packet] 4 gm PO BID Changed Insulin Aspart [NovoLOG Insulin] 10 units SQ AC #0 Instructions: Urinary Tract Infection (UTI) Follow up with: KERI ANTHONY [Primary Care Provider] - (APPT TIME CHANGED TO 2.45 PM PER PT REQUEST.) Forms: Discharge Instructions
== END 2017-02-28 09:08 | disposition home or self-care (01) ==
LOC: ED 18:49 → MED SURG 23:40
PROVIDERS: ADMIT Family Medicine; ATTEND Family Medicine
DX: N39.0 Urinary tract infection, site not specified (principal); A41.9 Sepsis, unspecified organism; E11.9 Type 2 diabetes mellitus without complications; Z79.4 Long term (current) use of insulin; I25.10 Atherosclerotic heart disease of native coronary artery without angina pectoris; J44.9 Chronic obstructive pulmonary disease, unspecified; K21.9 Gastro-esophageal reflux disease without esophagitis; Z72.0 Tobacco use; Z79.899 Other long term (current) drug therapy; I25.2 Old myocardial infarction; F32.9 Major depressive disorder, single episode, unspecified; Z85.41 Personal history of malignant neoplasm of cervix uteri
CPT/HCPCS: 36000; 36415; 70450; 71020; 80053; 81000; 82947; 82962; 83605; 85025; 87040; 87070; 87077; 87086; 87186; 87430; 93005; 94761; 96360; 96361; 96365; 99285; G0378; J0696; A9270-GY

== ENCOUNTER 2017-03-20 01:01 | Inpatient (IN) | payer MEDICARE ==
[2017-03-20] MEDS ORDERED: FEVERALL 650 MG PR ONE (01:48)
[2017-03-20] MEDS ORDERED: Zosyn 3.375GM/100 Ml D5W 3.375 GM/100 ML IVPB IV STA (01:49)
[2017-03-20 01:51] LABS: VBG BASE EXCESS 0.9 (-2.0-2.0); VBG HCO3- 28.9 meq/L (22-28); VBG HEMOGLOBIN 13.4; VBG O2 SATURATION 32.5 (95-100); VBG pH 7.29 (7.32-7.42)
[2017-03-20] MEDS ORDERED: FEVERALL 650 MG ONE (01:53)
[2017-03-20] MEDS ORDERED: Zosyn 3.375GM/100 Ml D5W 3.375 GM/100 ML IVPB IV ONE (01:53)
[2017-03-20] MEDS ORDERED: Lactated Ringers 1,000 ML IV ONE ×2 (01:53→02:33)
--- NOTE | 2017-03-20 02:03 | ERPHSYRPT ---
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 able to ambulate to room.. states feels like a UTI. has had cough occasionally productive. abdomen soft non tender. unsure iof she has gotti fever. Physician History: cc: chills Hx: 67 y/o patient of Dr Freddie Anthony. She has hx of DM and UTI. Recent UTI was treated. She now has shaking chills and rigors. Started tonite. Rather severe. Uncertain fever at home. Mild dysuria. Some diarrhea. No vomiting. She is a smoker. Timing/Duration: today Severity: moderate Allergies/Adverse Reactions: hydrocodone bitartrate [From Vicodin] Allergy (Mild, Verified 03/20/17 01:50) Itching morphine Allergy (Unknown, Verified 03/20/17 01:50) pregabalin [From Lyrica] Allergy (Verified 03/20/17 01:50) Home Medications: Alprazolam 0.25 mg [xanAX 0.25 MG] 0.5 mg PO BID 02/27/17 [History] Cholestyramine Light 4 gm [QUESTRAN Light 4 GM Packet] 4 gm PO BID [History] Gabapentin 300 mg PO TID 02/27/17 [History] Insulin Glargine,Hum.rec.anlog [Lantus] 25 unit SQ HS 02/27/17 [History] Levothyroxine Sodium 25 Mcg [Synthroid 25 Mcg] 25 mcg PO DAILY 02/27/17 [ History] Pravastatin Sodium [Pravachol] 10 mg PO DAILY 02/27/17 [History] Hx Tetanus, Diphtheria Vaccination/Date Given: Yes Hx Influenza Vaccination/Date Given: Yes Hx Pneumococcal Vaccination/Date Given: Yes - Review of Systems Constitutional: Chills, Fatigue, Malaise, Weakness, No Fever Eyes: No Symptoms Ears, Nose, & Throat: No Symptoms Respiratory: No Cough Cardiac: No Chest Pain Abdominal/Gastrointestinal: Diarrhea, No Abdominal Pain, No Nausea, No Vomiting Genitourinary Symptoms: Dysuria Skin: No Rash Neurological: No Headache All Other Systems: Reviewed and Negative - Past Medical History Pertinent Past Medical History: Yes Neurological History: No Pertinent History ENT History: No Pertinent History, Cataracts Cardiac History: Myocardial Infarction ([place]), Other Respiratory History: COPD Endocrine Medical History: Diabetes Type II Musculoskeletal History: Degenerative Disk Disease GI Medical History: GERD History: No Pertinent History Psycho-Social History: Depression Female Reproductive Disorders: Cervical Cancer Other Medical History: STENT X 2 CHRONIC BACK PAIN - Past Surgical History Past Surgical History: Yes Neuro Surgical History: No Pertinent History Cardiac: Cardiac Catheterization, Cardiac Stent Respiratory: No Pertinent History Gastrointestinal: Appendectomy, Cholecystectomy Genitourinary: No Pertinent History Musculoskeletal: Orthopedic Surgery Female Surgical History: Hysterectomy Other Surgical History: RIGHT HIP SURGERY, BACK SURGERY - Social History Smoking Status: Current every day smoker How long have you smoked: 53 Exposure to second hand smoke: Yes Drug Use: none Patient Lives Alone: No - Female History Hx Now: No - Nursing Vital Signs Nursing Vital Signs: Initial Vital Signs Temperature 100.3 F 03/20/17 01:28 Pulse Rate 114 H 03/20/17 01:28 Respiratory Rate 20 03/20/17 01:28 O2 Sat by Pulse Oximetry 96 03/20/17 01:28 Pain Scale Pain Intensity 0 - Physical Exam General Appearance: alert, thin Eye Exam: PERRL/EOMI Ears, Nose, Throat Exam: dry mucous membranes Neck Exam: normal inspection, non-tender, supple Respiratory Exam: normal breath sounds Cardiovascular Exam: regular rate/rhythm Gastrointestinal/Abdomen Exam: soft, No tenderness, No distention, No mass, No guarding Back Exam: normal inspection Extremity Exam: normal inspection, normal range of motion, No pedal edema Neurologic Exam: alert, oriented x 3, cooperative, 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 II-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 nml as tested, sensation nml, No motor deficits Skin Exam: warm, dry, No rash SpO2 Interpretation: normal SpO2: 96 Oxygen Delivery: Room Air - Course Nursing assessment & vital signs reviewed: Yes EKG Interpreted by Me: RATE (110), Sinus Tach, NORMAL AXIS, NORMAL INTERVALS ( QTc 447), Non-specific ST Changes - Radiology Exams cxr X-ray Interpretation: Interpreted by me (COPD), No Pneumonia Ordered Tests: Active Orders 24 hr Category Date Time Status Cell Maker STAT Care 03/20/17 01:49 Active Cath for Specimen-Straight STAT Care 03/20/17 01:21 Active EKG-ER Only STAT Care 03/20/17 01:48 Active IV Insertion STAT Care 03/20/17 01:20 Active Pulse Oximetry (ED) STAT Care 03/20/17 01:21 Active Rectal Temperature STAT Care 03/20/17 01:21 Active CHEST 1 VIEW (PORTABLE) Stat Exams 03/20/17 01:47 Taken BLOOD CULTURE Stat Lab 03/20/17 01:50 Received CBC W DIFF Stat Lab 03/20/17 01:40 Completed CMP Stat Lab 03/20/17 01:40 Completed CULTURE,URINE Stat Lab 03/20/17 02:10 Received Lactic Acid Stat Lab 03/20/17 01:41 Results PROTIME WITH INR Stat Lab 03/20/17 01:40 Completed PTT Stat Lab 03/20/17 01:40 Completed UA W/ MICROSCOPIC Stat Lab 03/20/17 02:10 Completed VENOUS BLOOD GAS Stat Lab 03/20/17 01:41 Completed Medication Summary Generic Name Dose Route Start Last Admin Trade Name Freq PRN Reason Stop Dose Admin Lactated Ringer's 1,000 mls @ 999 mls/hr 03/20/17 02:00 03/20/17 02:12 Lactated Ringers IV 03/20/17 04:00 999 mls/hr .Q1H1M DENNIS Administration Aztreonam 1 gm in 100 mls @ 200 mls/hr 03/20/17 02:43 Azactam 1 Gm/100 Ml D5w IV 03/20/17 03:12 STAT ONE Discontinued Medications Generic Name Dose Route Start Last Admin Trade Name Freq PRN Reason Stop Dose Admin Acetaminophen 650 mg 03/20/17 01:48 03/20/17 02:13 Feverall 650 Mg DC 03/20/17 01:49 650 mg STAT ONE Administration Acetaminophen Confirm 03/20/17 01:53 Feverall 650 Mg Administered 03/20/17 01:54 Dose 650 mg .ROUTE .STK-MED ONE Piperacillin Sod/Tazobactam Sod 3.375 gm in 100 mls @ 200 mls/hr 03/20/17 01: 49 03/20/17 02:15 Zosyn 3.375gm/100 Ml D5w IV 03/20/17 02:18 200 mls/hr STAT STA Administration Piperacillin Sod/Tazobactam Sod Confirm 03/20/17 01:53 Zosyn 3.375gm/100 Ml D5w Administered 03/20/17 01:54 Dose 3.375 gm in 100 mls @ ud IV .STK-MED ONE Lab/Rad Data: Laboratory Result Diagrams 03/20/17 01:40 03/20/17 01:40 Laboratory Results 03/20/17 03/20/17 03/20/17 Range/Units 02:10 01:41 01:41 WBC (4.0-10.5) K/mm3 RBC (4.1-5.4) M/mm3 Hgb (12.0-16.0) gm/dl Hct (35-47) % MCV (78-100) fl MCH (26-32) pg MCHC (32-36) g/dl RDW (11.5-14.0) % Plt Count (150-450) K/mm3 MPV (6-9.5) fl Gran % (36.0-66.0) % Lymphocytes % (24.0-44.0) % Monocytes % (0.0-12.0) % Eosinophils % (0.00-5.0) % Basophils % (0.0-0.4) % Basophils # (0-0.4) INR (0.8-3.0) APTT (25.3-37.0) SECONDS VBG pH 7.29 L (7.32-7.42) VBG pCO2 at Pat Temp 60 H (42-55) mm/Hg VBG pO2 at Pat Temp 16 L (25-40) mm/Hg VBG HCO3 28.9 H (22-28) meq/L VBG O2 Sat (Ward) 32.5 L (95-100) VBG Base Excess 0.9 (-2.0-2.0) VBG Hemoglobin 13.4 VBG Carboxyhemoglobin 8.0 H* (0.0-6.9) % T HGB POC Potassium 4.0 (3.5-5.1) Sodium (136-145) mEq/L Potassium (3.5-5.1) mEq/L Chloride (98-107) mEq/L Carbon Dioxide (21-32) mEq/L Anion Gap (5-15) MEQ/L BUN (9-20) mg/dL Creatinine (0.55-1.30) mg/dl Estimated GFR ML/MIN Glucose (70-110) MG/DL Lactic Acid 4.0 H (0.4-2.0) Calcium (8.5-10.1) mg/dL Total Bilirubin (0.2-1.0) mg/dL AST (15-37) U/L ALT (12-78) U/L Alkaline Phosphatase (46-116) U/L Serum Total Protein (6.4-8.2) gm/dL Albumin (3.4-5.0) g/dL Ur Collection Type CATH Urine Color YELLOW (YELLOW) Urine Appearance SLIGHTLY CLOUDY (CLEAR) Urine pH 6.5 (5-6) Ur Specific [place] 1.010 (1.005-1.025) Urine Protein 100 (Negative) Urine Ketones NEGATIVE (NEGATIVE) Urine Blood 50 (0-5) George/ul Urine Nitrite NEGATIVE (NEGATIVE) Urine Bilirubin NEGATIVE (NEGATIVE) Urine Urobilinogen NORMAL (0-1) mg/dL Ur Leukocyte Esterase 2+ (NEGATIVE) Urine Microscopic RBC 25-50 (0-2) /HPF Urine Microscopic WBC 50-100 (0-5) /HPF Ur Epithelial Cells RARE (FEW) /HPF Urine Bacteria FEW (NEGATIVE) /HPF Urine Culture Reflexed YES (NO) Urine Glucose 1000 (NEGATIVE) mg/dL Specimen Received 03/20/17 0210 03/20/17 03/20/17 03/20/17 Range/Units 01:40 01:40 01:40 WBC 17.3 H (4.0-10.5) K/mm3 RBC 4.12 (4.1-5.4) M/mm3 Hgb 12.6 (12.0-16.0) gm/dl Hct 39.5 (35-47) % MCV 95.9 (78-100) fl MCH 30.6 (26-32) pg MCHC 31.9 L (32-36) g/dl RDW 14.0 (11.5-14.0) % Plt Count 198 (150-450) K/mm3 MPV 10.8 H (6-9.5) fl Gran % 90.9 H (36.0-66.0) % Lymphocytes % 5.7 L (24.0-44.0) % Monocytes % 2.8 (0.0-12.0) % Eosinophils % 0.4 (0.00-5.0) % Basophils % 0.2 (0.0-0.4) % Basophils # 0.03 (0-0.4) INR 1.15 (0.8-3.0) APTT 38.5 H (25.3-37.0) SECONDS VBG pH (7.32-7.42) VBG pCO2 at Pat Temp (42-55) mm/Hg VBG pO2 at Pat Temp (25-40) mm/Hg VBG HCO3 (22-28) meq/L VBG O2 Sat (Ward) (95-100) VBG Base Excess (-2.0-2.0) VBG Hemoglobin VBG Carboxyhemoglobin (0.0-6.9) % T HGB POC Potassium (3.5-5.1) Sodium 136 (136-145) mEq/L Potassium 3.9 (3.5-5.1) mEq/L Chloride 99 (98-107) mEq/L Carbon Dioxide 27.5 (21-32) mEq/L Anion Gap 13.6 (5-15) MEQ/L BUN 18 (9-20) mg/dL Creatinine 1.57 H (0.55-1.30) mg/dl Estimated GFR 35 ML/MIN Glucose 308 H (70-110) MG/DL Lactic Acid (0.4-2.0) Calcium 8.7 (8.5-10.1) mg/dL Total Bilirubin 0.70 (0.2-1.0) mg/dL AST 17 (15-37) U/L ALT 15 (12-78) U/L Alkaline Phosphatase 118 H (46-116) U/L Serum Total Protein 6.7 (6.4-8.2) gm/dL Albumin 2.7 L (3.4-5.0) g/dL Ur Collection Type Urine Color (YELLOW) Urine Appearance (CLEAR) Urine pH (5-6) Ur Specific [place] (1.005-1.025) Urine Protein (Negative) Urine Ketones (NEGATIVE) Urine Blood (0-5) George/ul Urine Nitrite (NEGATIVE) Urine Bilirubin (NEGATIVE) Urine Urobilinogen (0-1) mg/dL Ur Leukocyte Esterase (NEGATIVE) Urine Microscopic RBC (0-2) /HPF Urine Microscopic WBC (0-5) /HPF Ur Epithelial Cells (FEW) /HPF Urine Bacteria (NEGATIVE) /HPF Urine Culture Reflexed (NO) Urine Glucose (NEGATIVE) mg/dL Specimen Received - Progress Progress Note: 03/20/17 02:51 Pt has IVF bolus in progress. Cultures sent. She has UTI and sepsis with elevated lactic acid consistent with septic shock. BP good. She has no cough or dyspnea at this time although some degree of resp acidosis. Will given insulin. Zosyn and azactam started. Called Dr Freddie Anthony for ICU admission. Discussed with .: Reginaldo Will see patient in: hospital (full admit) Counseled pt/family regarding: lab results, diagnosis, need for follow-up, rad results, smoking cessation - Departure Time of Disposition: 02:52 Departure Disposition: In-patient Admission (ICU) Clinical Impression: Diabetes mellitus, Septic shock, UTI (urinary tract infection) Condition: Serious Critical Care Time: Yes Critical Care Time(excluding separately billable procedures): 30-74 minutes Referrals: KERI ANTHONY [Primary Care Provider] -
[2017-03-20 02:04] LABS: BASOPHIL % 0.2 % (0.0-0.4); Basophil (Absolute #) 0.03 (0-0.4); Eosinophil % 0.4 % (0.00-5.0); Eosinophil (Absolute #) 0.07 (0-0.5); Granulocyte Absolute (ANC) 15.75 (1.4-6.9); Granulocytes % 90.9 % (36.0-66.0); Hematocrit 39.5 % (35-47); Hemoglobin 12.6 gm/dl (12.0-16.0); Lymphocyte (Absolute #) 0.99 (1.0-4.6); Lymphocytes % 5.7 % (24.0-44.0); Mean Cell Volume 95.9 fl (78-100); Mean Corpuscular Hemoglobin 30.6 pg (26-32); Mean Corpuscular Hgb Concent. 31.9 g/dl (32-36); Mean Platelet Volume 10.8 fl (6-9.5); Monocyte (Absolute #) 0.49 (0.0-1.3); Monocytes % 2.8 % (0.0-12.0); Platelet Count 198 K/mm3 (150-450); Red Blood Count 4.12 M/mm3 (4.1-5.4); White Blood Count 17.3 K/mm3 (4.0-10.5)
[2017-03-20] MEDS: Lactated Ringers 1,000 ML IV SCH ×2 (02:12→03:03)
[2017-03-20 02:14] LABS: INR 1.15 (0.8-3.0)
[2017-03-20 02:17] LABS: PTT 38.5 SECONDS (25.3-37.0)
[2017-03-20 02:21] LABS: Appearance SLIGHTLY CLOUDY (CLEAR)
[2017-03-20 02:22] LABS: Bilirubin NEGATIVE (NEGATIVE); Blood 50 Ery/ul (0-5); Glucose 1000 mg/dL (NEGATIVE); Ketones NEGATIVE (NEGATIVE); Leukocyte Esterase 2+ (NEGATIVE); Nitrite NEGATIVE (NEGATIVE); Ph 6.5 (5-6); Protein,Urine Dip 100 (Negative); Urobilinogen NORMAL mg/dL (0-1)
[2017-03-20 02:23] LABS: ALBUMIN 2.7 g/dL (3.4-5.0); ANION GAP 13.6 MEQ/L (5-15); BILIRUBIN,TOTAL 0.7 mg/dL (0.2-1.0); Calcium 8.7 mg/dL (8.5-10.1); Carbon Dioxide 27.5 mEq/L (21-32); Creatinine 1 1.57 mg/dl (0.55-1.30); Potassium 3.9 mEq/L (3.5-5.1); Total Protein 6.7 gm/dL (6.4-8.2)
[2017-03-20 02:33] LABS: Bacteria FEW /HPF (NEGATIVE); Epithelial Cells RARE /HPF (FEW); WBC 50-100 /HPF (0-5)
[2017-03-20] MEDS ORDERED: Azactam 1 GM/100 ML D5W 1 GM/100 ML IVPB IV ONE (02:43)
[2017-03-20] MEDS ORDERED: NovoLOG Insulin SQ ONE (02:50)
[2017-03-20] MEDS ORDERED: AZACTAM 1 GM ONE (02:56)
[2017-03-20] MEDS ORDERED: D5w 100ML Mini Bag 100 ML 100 ML IV ONE (02:57)
[2017-03-20] MEDS ORDERED: NovoLOG Insulin ONE (03:27)
[2017-03-20 03:46] LABS: Lactic Acid 2.7 (0.4-2.0)
[2017-03-20] MEDS ORDERED: NovoLOG Insulin SQ PRN (04:28)
[2017-03-20] MEDS ORDERED: DUONEB 0.5-3 MG/3 ml Neb IH PRN (04:28)
[2017-03-20] MEDS ORDERED: PROVENTIL COMMON CANISTER IH PRN (05:03)
[2017-03-20] MEDS: Zosyn 3.375GM/100 Ml D5W 3.375 GM/100 ML IVPB IV SCH ×5 (05:42→23:24)
[2017-03-20] MEDS: Sodium Chloride 0.9% 1000 ML 1,000 ML IV SCH ×2 (06:08→16:56)
[2017-03-20] MEDS ORDERED: Ambien 5 MG Tablet PO PRN (08:29)
--- NOTE | 2017-03-20 08:29 | PCM.HP ---
History of Present Illness - Chief Complaint Chief Complaint: UTI, Sepsis Date: 03/20/17 History of Present Illness: is a 67 year old female. who presented to the ED last night she had started to have some increase in her chronic low back pain and increased frequency of urination late in the afternoon then she started having chills and weakness and confusion for about 2 hours and was not improving so came to ED. otherwise she had been feeling well prior to the acute onset. SHe is tired this am but otherwise feeling ok currently. She is anxious about having to be in the hospital again. - Review of Systems Constitutional: Fever, Chills, Fatigue Eyes: No Symptoms Ears, Nose, & Throat: No Symptoms Respiratory: No Cough, No Short Of Breath Cardiac: No Chest Pain, No Edema, No Syncope Abdominal/Gastrointestinal: No Abdominal Pain, No Nausea, No Vomiting, No Diarrhea Genitourinary Symptoms: Frequency, No Dysuria Musculoskeletal: Back Pain, No Neck Pain Skin: No Rash Neurological: No Dizziness, No Focal Weakness, No Sensory Changes Psychological: No Symptoms Endocrine: No Symptoms Hematologic/Lymphatic: No Symptoms Immunological/Allergic: No Symptoms Medications & Allergies Home Medications: Home Medication List Alprazolam 0.25 mg [xanAX 0.25 MG] 0.5 mg PO BID 02/27/17 [History Confirmed 03/20/17] Cholestyramine Light 4 gm [QUESTRAN Light 4 GM Packet] 4 gm PO BID [History Confirmed 03/20/17] Gabapentin 300 mg PO TID 02/27/17 [History Confirmed 03/20/17] Insulin Glargine,Hum.rec.anlog [Lantus] 25 unit SQ HS 02/27/17 [History Confirmed 03/20/17] Levothyroxine Sodium 25 Mcg [Synthroid 25 Mcg] 25 mcg PO DAILY 02/27/17 [ History Confirmed 03/20/17] Pravastatin Sodium [Pravachol] 10 mg PO DAILY 02/27/17 [History Confirmed ] Insulin Aspart [NovoLOG Insulin] 10 units SQ AC #0 02/28/17 [Rx Confirmed ] Allergies/Adverse Reactions: Allergies Allergy/AdvReac Type Severity Reaction Status Date / Time hydrocodone bitartrate Allergy Mild Itching Verified 03/20/17 04:35 [From Vicodin] morphine Allergy Unknown Verified 03/20/17 04:35 pregabalin [From Lyrica] Allergy Verified 03/20/17 04:35 - Past Medical History Past Medical History: Yes Neurological History: No Pertinent History ENT History: Cataracts Cardiac History: High Cholesterol, Myocardial Infarction ([place]) Respiratory History: COPD Endocrine Medical History: Diabetes Type I Musculoskelatal History: Degenerative Disk Disease GI Medical History: GERD History: No Pertinent History Pyscho-Social History: Anxiety Reproductive Disorders: Cervical Cancer Comment: chronic back pain - Female History Are you now?: No - Past Surgical History Past Surgical History: Yes Neuro Surgical History: No Pertinent History Cardiac History: Cardiac Catheterization, Cardiac Stent Respiratory Surgery: No Pertinent History GI Surgical History: Appendectomy, Cholecystectomy Genitourinary Surgical Hx: No Pertinent History Musculskeletal Surgical Hx: Orthopedic Surgery Female Surgical History: Hysterectomy Other Surgical History: RIGHT HIP SURGERY, BACK SURGERY - Social History Smoking Status: Current every day smoker How long have you smoked: 54 years Exposure to second hand smoke: Yes Alcohol: Rarely Drug Use: none - Physical Exam Vital Signs: Vital Signs - 24 hr Temp Pulse Resp BP Pulse Ox 03/20/17 07:48 97.3 F 74 20 117/62 96 03/20/17 06:00 76 18 92 L 03/20/17 04:38 98.9 F 92 H 20 111/53 95 03/20/17 04:20 89 21 93 L 03/20/17 03:51 98 H 18 126/54 95 03/20/17 02:53 96 03/20/17 02:43 101.6 F 105 H 20 162/70 96 03/20/17 02:09 80 18 170/73 97 03/20/17 01:43 96 03/20/17 01:42 100.3 F 03/20/17 01:28 100.3 F 114 H 20 96 General Appearance: no apparent distress, alert, thin Neurologic Exam: alert, oriented x 3, cooperative, normal mood/affect, nml cerebellar function, sensation nml, No motor deficits Eye Exam: PERRL/EOMI, eyes nml inspection Ears, Nose, Throat Exam: normal ENT inspection, TMs normal, pharynx normal, moist mucous membranes Neck Exam: normal inspection, non-tender, supple, full range of motion Respiratory Exam: normal breath sounds, lungs clear, No respiratory distress Cardiovascular Exam: regular rate/rhythm, normal heart sounds, normal peripheral pulses Gastrointestinal/Abdomen Exam: soft, normal bowel sounds, No tenderness, No mass Back Exam: normal inspection, normal range of motion, No CVA tenderness, No vertebral tenderness Extremity Exam: normal inspection, normal range of motion, pelvis stable Skin Exam: normal color, warm, dry, No rash Lymphatic Exam: No adenopathy Results - Labs Lab/Micro Results: Accuchecks Date 03/20/17 Time 07:45 Accucheck Value: 59 Accuchecks Date 03/20/17 Time 07:45 Accucheck Value: 59 - Other Procedures and Tests Respiratory Therapy 03/20/17 05:03 Respiratory MDI PRN 03/20/17 05:05 Smoking Cessation Education ONCE Assessment/Plan (1) Sepsis Current Visit: Yes Status: Acute Assessment & Plan: severe with lactic acidosis and respiratory acidosis and acute kidney injury due to uti. will d/c aztreonam and continue the zosyn pending the culture. She has good perfusion now on repeat clinical assessment and lactic acid trending down continue iv hydration today repeat renal function. (2) UTI (urinary tract infection) Current Visit: Yes Status: Acute Qualifiers: Code(s): N39.0 - URINARY TRACT INFECTION, SITE NOT SPECIFIED (3) Acute kidney injury Current Visit: Yes Status: Acute Code(s): N17.9 - ACUTE KIDNEY FAILURE, UNSPECIFIED (4) COPD (chronic obstructive pulmonary disease) Current Visit: Yes Status: Chronic (5) Tobacco dependence Current Visit: Yes Status: Chronic Code(s): F17.200 - NICOTINE DEPENDENCE, UNSPECIFIED, UNCOMPLICATED (6) Diabetes mellitus Current Visit: Yes Status: Chronic Code(s): E11.9 - TYPE 2 DIABETES MELLITUS WITHOUT COMPLICATIONS (7) Coronary artery disease Current Visit: Yes Status: Chronic Code(s): I25.10 - ATHSCL HEART DISEASE OF [place] CORONARY ARTERY W/O ANG PCTRS
--- NOTE | 2017-03-20 09:08 | XRAY ---
Indication: Sepsis. Comparison: February 26, 2017. Portable chest unchanged again hyperinflated and clear. Heart is not enlarged. No new/acute cardiopulmonary findings.
[2017-03-20] MEDS: Pepcid 20 MG VIAL IV SCH ×2 (09:59→21:29)
[2017-03-20] MEDS: NEURONTIN 300 MG PO SCH ×3 (09:59→21:29)
[2017-03-20] MEDS: SYNTHROID 25 MCG PO SCH (09:59)
[2017-03-20] MEDS ORDERED: xanAX 0.25 MG PO SCH (10:00)
[2017-03-20] MEDS ORDERED: NON-FORMULARY ITEM (Pravastatin Sodium [Pravachol] 10 MG) PO SCH ×2 (10:00)
[2017-03-20] MEDS: QUESTRAN Light 4 GM Packet PO SCH ×2 (10:00→21:29)
[2017-03-20] MEDS ORDERED: Azactam 1 GM/100 ML D5W 1 GM/100 ML IVPB IV SCH (10:00)
[2017-03-20] MEDS: xanAX 0.5 MG PO SCH ×2 (10:00→21:29)
[2017-03-20] MEDS: NovoLOG Insulin SQ PRN ×2 (11:12→23:25)
[2017-03-20] MEDS: NovoLOG Insulin SQ SCH ×2 (11:12→16:57)
[2017-03-20] MEDS: TYLENOL 325 MG PO PRN (17:40)
[2017-03-20] MEDS: Lantus Insulin SQ SCH (21:29)
[2017-03-20] MEDS: Zocor 10MG PO SCH (21:30)
[2017-03-21] MEDS: Sodium Chloride 0.9% 1000 ML 1,000 ML IV SCH ×2 (03:34→17:51)
[2017-03-21] MEDS: Zosyn 3.375GM/100 Ml D5W 3.375 GM/100 ML IVPB IV SCH ×4 (05:33→23:33)
[2017-03-21] MEDS: TYLENOL 325 MG PO PRN ×2 (05:34→22:18)
[2017-03-21 05:41] LABS: Lactic Acid 0.8 (0.4-2.0); VBG BASE EXCESS 1.6 (-2.0-2.0); VBG CARBOXYHEMOGLOBIN 0.2 % T HGB (0.0-6.9); VBG HCO3- 25.8 meq/L (22-28); VBG HEMOGLOBIN 11.5; VBG O2 SATURATION 78.9 (95-100); VBG POTASSIUM 3.7 (3.5-5.1); VBG pH 7.44 (7.32-7.42)
[2017-03-21 06:15] LABS: BASOPHIL % 0.1 % (0.0-0.4); Basophil (Absolute #) 0.01 (0-0.4); Eosinophil % 0.6 % (0.00-5.0); Eosinophil (Absolute #) 0.07 (0-0.5); Granulocyte Absolute (ANC) 8.88 (1.4-6.9); Granulocytes % 80.9 % (36.0-66.0); Hematocrit 33.8 % (35-47); Hemoglobin 10.8 gm/dl (12.0-16.0); Lymphocyte (Absolute #) 1.07 (1.0-4.6); Lymphocytes % 9.7 % (24.0-44.0); Mean Cell Volume 96.3 fl (78-100); Mean Platelet Volume 11.4 fl (6-9.5); Monocyte (Absolute #) 0.96 (0.0-1.3); Monocytes % 8.7 % (0.0-12.0); Platelet Count 157 K/mm3 (150-450); Red Blood Count 3.51 M/mm3 (4.1-5.4); Red Cell Distribution Width 13.7 % (11.5-14.0)
[2017-03-21 06:19] LABS: Mean Corpuscular Hemoglobin 30.7 pg (26-32)
[2017-03-21 07:18] LABS: ALBUMIN 1.9 g/dL (3.4-5.0); ALKALINE PHOSPHATASE 94 U/L (46-116); BLOOD UREA NITROGEN 13 mg/dL (9-20); CHLORIDE 108 mEq/L (98-107); Carbon Dioxide 24.3 mEq/L (21-32); Creatinine 1 0.96 mg/dl (0.55-1.30); EST GLOMERULAR FILTRATION RATE > 60 ML/MIN; Glucose 172 MG/DL (70-110); Potassium 3.6 mEq/L (3.5-5.1); SGOT/AST 17 U/L (15-37); SGPT/ALT 14 U/L (12-78); SODIUM 140 mEq/L (136-145); Total Protein 5.5 gm/dL (6.4-8.2)
[2017-03-21] MEDS ORDERED: xanAX 0.5 MG PO PRN (08:01)
--- NOTE | 2017-03-21 08:01 | PCM.NOTE ---
Date and Time: 03/21/17 0801 Subjective Assessment: She feels better was able to sleep with the ambien. did have fever early this am. Says she has no pain now and no chills. She is walking she has no nausea or vomiting Objective Exam General Appearance: no apparent distress, alert, thin Neurologic Exam: alert, oriented x 3, cooperative, normal mood/affect, nml cerebellar function, sensation nml, No motor deficits Skin Exam: normal color, warm, dry Eye Exam: PERRL, EOMI, eyes nml inspection Ears, Nose, Throat Exam: normal ENT inspection, pharynx normal, moist mucous membranes Neck Exam: normal inspection, non-tender, supple, full range of motion Respiratory Exam: normal breath sounds, lungs clear, No respiratory distress Cardiovascular Exam: regular rate/rhythm, normal heart sounds Gastrointestinal/Abdomen Exam: soft, No tenderness, No mass Extremity Exam: normal inspection, normal range of motion Back Exam: normal inspection, normal range of motion, No CVA tenderness, No vertebral tenderness Pelvic Exam: deferred Rectal Exam: deferred OBJECTIVE DATA Vital Signs: Vital Signs - 24 hr Temp Pulse Resp BP Pulse Ox 03/21/17 07:35 99.2 F 76 16 146/64 92 L 03/21/17 04:03 100.4 F 96 H 22 161/77 93 L 03/21/17 00:11 99.6 F 77 20 160/73 95 03/20/17 20:39 81 18 92 L 03/20/17 20:21 99.0 F 82 18 129/60 92 L 03/20/17 17:41 99.1 F 03/20/17 15:50 78 18 144/69 97 03/20/17 15:29 76 18 96 03/20/17 11:37 77 03/20/17 11:23 80 18 124/62 97 Pain Assessment - Last Documented Pain Intensity 0 Pain Scale Used [facility] Intake and Output: Intake & Output 03/18/17 03/19/17 03/20/17 03/21/17 11:59 11:59 11:59 11:59 Intake Total 0 3106 Output Total 0 Balance 0 3106 Weight 53 kg Lab Results: Accuchecks Date 03/20/17 Date 03/20/17 Date 03/20/17 Time 21:30 Time 11:12 Time 11:12 Accucheck Value: 322 Accucheck Value: 267 Accucheck Value: 267 Lab Results-Last 24 Hours 03/21/17 03/21/17 03/21/17 Range/Units 05:00 05:00 05:35 WBC 11.0 H (4.0-10.5) K/mm3 RBC 3.51 L (4.1-5.4) M/mm3 Hgb 10.8 L (12.0-16.0) gm/dl Hct 33.8 L (35-47) % MCV 96.3 (78-100) fl MCH 30.7 (26-32) pg MCHC 32.0 (32-36) g/dl RDW 13.7 (11.5-14.0) % Plt Count 157 (150-450) K/mm3 MPV 11.4 H (6-9.5) fl Gran % 80.9 H (36.0-66.0) % Lymphocytes % 9.7 L (24.0-44.0) % Monocytes % 8.7 (0.0-12.0) % Eosinophils % 0.6 (0.00-5.0) % Basophils % 0.1 (0.0-0.4) % Basophils # 0.01 (0-0.4) VBG pH 7.44 H (7.32-7.42) VBG pCO2 at Pat Temp 38 L (42-55) mm/Hg VBG pO2 at Pat Temp 43 H (25-40) mm/Hg VBG HCO3 25.8 (22-28) meq/L VBG O2 Sat (Ward) 78.9 L (95-100) VBG Base Excess 1.6 (-2.0-2.0) VBG Hemoglobin 11.5 VBG Carboxyhemoglobin 0.2 (0.0-6.9) % T HGB POC Potassium 3.7 (3.5-5.1) Sodium 140 (136-145) mEq/L Potassium 3.6 (3.5-5.1) mEq/L Chloride 108 H (98-107) mEq/L Carbon Dioxide 24.3 (21-32) mEq/L Anion Gap 11.0 (5-15) MEQ/L BUN 13 (9-20) mg/dL Creatinine 0.96 (0.55-1.30) mg/dl Estimated GFR > 60 ML/MIN Glucose 172 H (70-110) MG/DL Lactic Acid 0.8 (0.4-2.0) Calcium 8.0 L (8.5-10.1) mg/dL Total Bilirubin 0.40 (0.2-1.0) mg/dL AST 17 (15-37) U/L ALT 14 (12-78) U/L Alkaline Phosphatase 94 (46-116) U/L Serum Total Protein 5.5 L (6.4-8.2) gm/dL Albumin 1.9 L (3.4-5.0) g/dL Assessment/Plan (1) UTI (urinary tract infection) Current Visit: Yes Status: Acute Qualifiers: Assessment & Plan: given severity of presentation she was placed on zosyn will await urine culture and switch to appropriate po she was febrile still this am continue iv fluids possible home tomorrow on po antibiotics if continues to improve Code(s): N39.0 - URINARY TRACT INFECTION, SITE NOT SPECIFIED (2) COPD (chronic obstructive pulmonary disease) Current Visit: Yes Status: Chronic (3) Acute kidney injury Current Visit: Yes Status: Resolved Code(s): N17.9 - ACUTE KIDNEY FAILURE, UNSPECIFIED (4) Tobacco dependence Current Visit: Yes Status: Chronic Code(s): F17.200 - NICOTINE DEPENDENCE, UNSPECIFIED, UNCOMPLICATED (5) Diabetes mellitus Current Visit: Yes Status: Chronic Code(s): E11.9 - TYPE 2 DIABETES MELLITUS WITHOUT COMPLICATIONS (6) Coronary artery disease Current Visit: Yes Status: Chronic Code(s): I25.10 - ATHSCL HEART DISEASE OF [place] CORONARY ARTERY W/O ANG PCTRS (7) Sepsis Current Visit: Yes Status: Resolved
[2017-03-21] MEDS: ENOXAPARIN SODIUM SQ SCH (08:16)
[2017-03-21] MEDS: SYNTHROID 25 MCG PO SCH (08:17)
[2017-03-21] MEDS: QUESTRAN Light 4 GM Packet PO SCH ×2 (08:17→21:25)
[2017-03-21] MEDS: NEURONTIN 300 MG PO SCH ×3 (08:17→21:25)
[2017-03-21] MEDS: xanAX 0.5 MG PO PRN ×2 (08:17→13:31)
[2017-03-21] MEDS: Pepcid 20 MG VIAL IV SCH ×2 (08:18→21:25)
[2017-03-21] MEDS: Nicoderm CQ 21 MG TOP SCH (08:18)
[2017-03-21] MEDS: NovoLOG Insulin SQ SCH ×3 (08:19→16:34)
[2017-03-21] MEDS: Lomotil PO PRN ×2 (14:30→21:37)
[2017-03-21] MEDS: NovoLOG Insulin SQ PRN ×2 (16:34→21:26)
[2017-03-21] MEDS: Catapres 0.1 MG PO PRN ×2 (17:52→23:33)
[2017-03-21 20:21] LABS: 027 TOX PROD PRESUMPTIVE NEGATIVE (NEGATIVE); TOXIGENIC C. DIFF ORG NEGATIVE (NEGATIVE)
[2017-03-21] MEDS: Zocor 10MG PO SCH (21:25)
[2017-03-21] MEDS: Lantus Insulin SQ SCH (21:26)
[2017-03-22 05:51] LABS: BASOPHIL % 0.2 % (0.0-0.4); Basophil (Absolute #) 0.01 (0-0.4); Eosinophil % 1.7 % (0.00-5.0); Eosinophil (Absolute #) 0.11 (0-0.5); Granulocyte Absolute (ANC) 4.16 (1.4-6.9); Granulocytes % 65.3 % (36.0-66.0); Hematocrit 32.4 % (35-47); Hemoglobin 10.3 gm/dl (12.0-16.0); Lymphocyte (Absolute #) 1.35 (1.0-4.6); Lymphocytes % 21.2 % (24.0-44.0); Mean Cell Volume 96.4 fl (78-100); Mean Corpuscular Hgb Concent. 31.8 g/dl (32-36); Mean Platelet Volume 11.2 fl (6-9.5); Monocyte (Absolute #) 0.74 (0.0-1.3); Monocytes % 11.6 % (0.0-12.0); Platelet Count 155 K/mm3 (150-450); Red Blood Count 3.36 M/mm3 (4.1-5.4); Red Cell Distribution Width 13.4 % (11.5-14.0); White Blood Count 6.4 K/mm3 (4.0-10.5)
[2017-03-22 06:00] LABS: Mean Corpuscular Hemoglobin 30.6 pg (26-32)
[2017-03-22 06:17] LABS: ALBUMIN 1.9 g/dL (3.4-5.0); ANION GAP 12.1 MEQ/L (5-15); BILIRUBIN,TOTAL 0.4 mg/dL (0.2-1.0); Calcium 8.3 mg/dL (8.5-10.1); Carbon Dioxide 24.9 mEq/L (21-32); Creatinine 1 1.03 mg/dl (0.55-1.30); Potassium 3.2 mEq/L (3.5-5.1); Total Protein 5.7 gm/dL (6.4-8.2)
[2017-03-22] MEDS: Zosyn 3.375GM/100 Ml D5W 3.375 GM/100 ML IVPB IV SCH (06:22)
[2017-03-22 07:24] VITALS: O2SAT 97
[2017-03-22 07:38] VITALS: BP 132/62; PULSE 61
[2017-03-22] MEDS: NovoLOG Insulin SQ SCH (07:58)
[2017-03-22] MEDS: Lomotil PO PRN (07:58)
[2017-03-22] MEDS: NEURONTIN 300 MG PO SCH (08:15)
[2017-03-22] MEDS: SYNTHROID 25 MCG PO SCH (08:16)
[2017-03-22] MEDS: QUESTRAN Light 4 GM Packet PO SCH (08:16)
[2017-03-22] MEDS: Pepcid 20 MG VIAL IV SCH (08:19)
[2017-03-22] MEDS: Nicoderm CQ 21 MG TOP SCH (08:23)
[2017-03-22] MEDS: ENOXAPARIN SODIUM SQ SCH (08:23)
--- NOTE | 2017-03-22 09:47 | PCM.DCORD ---
- Discharge Discharge Date: 03/22/17 Condition: Stable Prescriptions: New Amox Tr/Potass Clav. 875 mg [Augmentin 875-125 Tablet] 875 mg PO BID # 14 tablet Continue Pravastatin Sodium [Pravachol] 10 mg PO DAILY Levothyroxine Sodium 25 Mcg [Synthroid 25 Mcg] 25 mcg PO DAILY Insulin Glargine,Hum.rec.anlog [Lantus] 25 unit SQ HS Gabapentin 300 mg PO TID Alprazolam 0.25 mg [xanAX 0.25 MG] 0.5 mg PO BID Cholestyramine Light 4 gm [QUESTRAN Light 4 GM Packet] 4 gm PO BID Insulin Aspart [NovoLOG Insulin] 10 units SQ AC #0 Instructions: Urinary Tract Infection (UTI), Sepsis -- Adult Follow up with: KERI ANTHONY [Primary Care Provider] - 03/28/17 9:00 am Forms: Discharge Instructions, Patient Portal Information
--- NOTE | 2017-03-25 13:49 | DS ---
DISCHARGE DIAGNOSIS: ESCHERICHIA COLI PYELONEPHRITIS. HOSPITAL COURSE: The patient is a 67 year-old white female who has had apparent nausea and back pain, dysuria. She was seen in the emergency room and admitted. She was quite ill on initial admission with feeling that she likely was septic although her blood cultures have not grown anything. The urine culture did grow Escherichia coli which is essentially sensitive to all of the antibiotics tested. The patient has been on Zosyn. She is feeling much better at this point. Her white blood cell count was down to 6,400. She was anxious to go home. The patient reports that she did previously have urinary tract infection fairly recently and she is concerned how it occurred and recurrent. The patient will be sent on Augmentin 875 mg twice a day with appointment for follow up to see Dr. Arita on 03/28/2017. She is to call if she has any further problems in the interim. She will continue to take her usual home medications which otherwise include Alprazolam on PRN basis, gabapentin 300 mg t.i.d. She is on insulin, levothyroxine 25 mcg a day, Pravastatin 10 mg a day.
== END 2017-03-22 10:25 | disposition home or self-care (01) | DRG 689 ==
LOC: ED 01:01 → ICU 04:24 → MED SURG 19:02
PROVIDERS: ADMIT Family Medicine; ATTEND Family Medicine
DX: N12 Tubulo-interstitial nephritis, not specified as acute or chronic (principal); A41.9 Sepsis, unspecified organism; R65.21 Severe sepsis with septic shock; N39.0 Urinary tract infection, site not specified; B96.20 Unspecified Escherichia coli [E. coli] as the cause of diseases classified elsewhere; N17.9 Acute kidney failure, unspecified; F32.9 Major depressive disorder, single episode, unspecified; I25.2 Old myocardial infarction; Z72.0 Tobacco use; E11.9 Type 2 diabetes mellitus without complications; J44.9 Chronic obstructive pulmonary disease, unspecified; K21.9 Gastro-esophageal reflux disease without esophagitis; F41.9 Anxiety disorder, unspecified; M54.9 Dorsalgia, unspecified; G89.29 Other chronic pain; F45.42 Pain disorder with related psychological factors; Z85.41 Personal history of malignant neoplasm of cervix uteri; Z79.899 Other long term (current) drug therapy; F17.200 Nicotine dependence, unspecified, uncomplicated; I25.10 Atherosclerotic heart disease of native coronary artery without angina pectoris
CPT/HCPCS: 36000; 36415; 71010; 80053; 81000; 82805; 82962; 83605; 85025; 85610; 85730; 87040; 87077; 87086; 87186; 87493; 93005; 93041; 94760; 96360; 96361; 96365; 96366; 96372; 99285; J1650; J2543; P9612; A9270-GY

== ENCOUNTER 2017-07-23 05:55 | Day surgery (SDC) | payer MEDICARE ==
[2017-07-23] MEDS ORDERED: DIPRIVAN 200 MG/20 ML IV ONE (05:56)
[2017-07-23] MEDS ORDERED: Lactated Ringers 1,000 ML IV ONE (07:03)
[2017-07-23] MEDS ORDERED: Lactated Ringers 1,000 ML IV SCH (07:30)
[2017-07-23 08:14] VITALS: BP 136/66; PULSE 82; O2SAT 96
--- NOTE | 2017-07-23 08:41 | OP ---
SURGERY DATE/TIME: 07/23/2017721 PREOPERATIVE DIAGNOSIS: Chronic diarrhea. POSTOPERATIVE DIAGNOSIS: Normal colon. PROCEDURE: Diagnostic colonoscopy. SURGEON: Jesse Chambers M.D. ANESTHESIA: MAC by Stephan Junior CRNA. ESTIMATED BLOOD LOSS: None. SPECIMENS: None. DESCRIPTION OF PROCEDURE: After informed written consent was obtained, the patient was taken to the endoscopy suite. She underwent monitored anesthesia and a digital rectal exam showed moderate external hemorrhoids with no internal lesions and normal sphincter tone. The scope was inserted into the rectum and sequentially the entire colonic mucosa was traversed. The level of cecum was reached and verified with direct visualization of ileocecal valve. Upon withdrawal careful mucosal inspection revealed no gross abnormalities. Prep was noted to be fair. Prior to withdrawal retroflexion showed no obvious internal lesions. The scope was removed and the patient was transferred to the recovery room in excellent condition.
== END 2017-07-23 09:21 | disposition home or self-care (01) ==
LOC: SDC 05:55
PROVIDERS: ATTEND Family Medicine
DX: K52.9 Noninfective gastroenteritis and colitis, unspecified (principal); E10.8 Type 1 diabetes mellitus with unspecified complications; E03.9 Hypothyroidism, unspecified; I10 Essential (primary) hypertension; G62.9 Polyneuropathy, unspecified
CPT/HCPCS: J2704

== ENCOUNTER 2017-08-11 14:08 | Emergency (ER) | payer MEDICARE ==
[2017-08-11 14:19] VITALS: PULSE 75
--- NOTE | 2017-08-11 15:16 | ERPHSYRPT ---
- History of Present Illness Time Seen by Provider: 08/11/17 15:07 Source: patient, EMS Exam Limitations: no limitations Patient Subjective Stated Complaint: pt brought to ed from home by ems-reports pt had syncapal episode and fell-pt unsure if she went completely out but states she was very fuzzy for awhile-reports severe pain to right ribs worsening with movement or deep breathing Triage Nursing Assessment: pt pink warm and [id number] nonlabored-grimacing noted with any movement-no decrepits palpated-pt speaking in complete sentences Allergies/Adverse Reactions: No Known Drug Allergies Allergy (Verified 08/11/17 14:26) Home Medications: Alprazolam 0.25 mg [xanAX 0.25 MG] 0.5 mg PO BID 02/27/17 [History] Cholestyramine Light 4 gm [QUESTRAN Light 4 GM Packet] 4 gm PO BID [History] Gabapentin 300 mg PO TID 02/27/17 [History] Insulin Glargine,Hum.rec.anlog [Lantus] 25 unit SQ HS 02/27/17 [History] Levothyroxine Sodium 25 Mcg [Synthroid 25 Mcg] 25 mcg PO DAILY 02/27/17 [ History] Pravastatin Sodium [Pravachol] 10 mg PO DAILY 02/27/17 [History] Carvedilol 3.125 mg [Coreg 3.125 MG] 3.125 mg PO BID 07/19/17 [History] Ranitidine HCl [Zantac] 300 mg PO DAILY 07/19/17 [History] Tramadol HCl 50 mg [Ultram 50 mg] 50 mg PO DAILY 07/19/17 [History] Hx Tetanus, Diphtheria Vaccination/Date Given: Yes Hx Influenza Vaccination/Date Given: Yes Hx Pneumococcal Vaccination/Date Given: Yes Immunizations Up to Date: Yes - Past Medical History Pertinent Past Medical History: Yes Neurological History: No Pertinent History ENT History: Cataracts Cardiac History: High Cholesterol, Myocardial Infarction ([place]) Respiratory History: COPD Endocrine Medical History: Diabetes Type I Musculoskeletal History: Degenerative Disk Disease GI Medical History: GERD History: No Pertinent History Psycho-Social History: Anxiety Female Reproductive Disorders: Cervical Cancer Other Medical History: chronic back pain - Past Surgical History Past Surgical History: Yes Neuro Surgical History: No Pertinent History Cardiac: Cardiac Catheterization, Cardiac Stent Respiratory: No Pertinent History Gastrointestinal: Appendectomy, Cholecystectomy Genitourinary: No Pertinent History Musculoskeletal: Orthopedic Surgery Female Surgical History: Hysterectomy Other Surgical History: RIGHT HIP SURGERY ball placed, BACK SURGERY -unknown - Social History Smoking Status: Current every day smoker How long have you smoked: 54 Exposure to second hand smoke: Yes Drug Use: none Patient Lives Alone: No - Female History Hx Now: No Physical Exam - Nursing Vital Signs Nursing Vital Signs: Initial Vital Signs Temperature 97 F 08/11/17 14:09 Pulse Rate 75 08/11/17 14:09 Respiratory Rate 18 08/11/17 14:09 Blood Pressure 138/74 08/11/17 14:09 O2 Sat by Pulse Oximetry 93 L 08/11/17 14:09 Pain Scale Pain Intensity 10 - Physical Exam SpO2: 93 Oxygen Delivery: Room Air - Departure Referrals: KERI ANTHONY [Primary Care Provider] -
--- NOTE | 2017-08-11 15:24 | ERPHSYRPT ---
- History of Present Illness Time Seen by Provider: 08/11/17 15:07 Patient Subjective Stated Complaint: pt brought to ed from home by ems-reports pt had syncapal episode and fell-pt unsure if she went completely out but states she was very fuzzy for awhile-reports severe pain to right ribs worsening with movement or deep breathing Triage Nursing Assessment: pt pink warm and qst-xzooh-nlhg nonlabored-grimacing noted with any movement-no decrepits palpated-pt speaking in complete sentences Physician History: The patient is a thin looking ill appearing cachectic 67-year-old female with her complaining that she has fallen 2 times today. She remembers the entire event each time. She denies losing consciousness. The first time was after she stood up and was walking across the deck and she lost the ability to stand. Her was there to catch her. The second time she was in the kitchen. She fell against a countertop, striking her right ribs. She also states she hit the back of her head on the floor but it doesn't hurt and she does not have any swelling. Pt has worsening cough. She denies nausea or vomiting. her past medical history is significant for diabetes type 1, COPD, CAD, cardiac stents, [place], and frequent pneumonia. Occurred: just prior to arrival Reason for Fall: lightheaded Injuries/Pain Location: chest Loss of Consciousness: no loss of consciousness Quality: aching Severity of Pain-Max: moderate Severity of Pain-Current: moderate Modifying Factors: Improves With: nothing Associated Symptoms (Fall): other (rib pain) Allergies/Adverse Reactions: No Known Drug Allergies Allergy (Verified 08/11/17 14:26) Home Medications: Alprazolam 0.25 mg [xanAX 0.25 MG] 0.5 mg PO BID 02/27/17 [History] Cholestyramine Light 4 gm [QUESTRAN Light 4 GM Packet] 4 gm PO BID [History] Gabapentin 300 mg PO TID 02/27/17 [History] Insulin Glargine,Hum.rec.anlog [Lantus] 25 unit SQ HS 02/27/17 [History] Levothyroxine Sodium 25 Mcg [Synthroid 25 Mcg] 25 mcg PO DAILY 02/27/17 [ History] Pravastatin Sodium [Pravachol] 10 mg PO DAILY 02/27/17 [History] Carvedilol 3.125 mg [Coreg 3.125 MG] 3.125 mg PO BID 07/19/17 [History] Ranitidine HCl [Zantac] 300 mg PO DAILY 07/19/17 [History] Tramadol HCl 50 mg [Ultram 50 mg] 50 mg PO DAILY 07/19/17 [History] Hx Tetanus, Diphtheria Vaccination/Date Given: Yes Hx Influenza Vaccination/Date Given: Yes Hx Pneumococcal Vaccination/Date Given: Yes Immunizations Up to Date: Yes - Review of Systems Constitutional: No Fever, No Chills Eyes: No Symptoms Ears, Nose, & Throat: No Symptoms Respiratory: Cough, No Dyspnea Cardiac: No Chest Pain, No Edema, No Syncope Abdominal/Gastrointestinal: No Abdominal Pain, No Nausea, No Vomiting, No Diarrhea Genitourinary Symptoms: No Dysuria Musculoskeletal: No Back Pain, No Neck Pain Skin: No Rash Neurological: No Dizziness, No Focal Weakness, No Sensory Changes Psychological: No Symptoms Endocrine: No Symptoms Hematologic/Lymphatic: No Symptoms Immunological/Allergic: No Symptoms All Other Systems: Reviewed and Negative - Past Medical History Pertinent Past Medical History: Yes Neurological History: No Pertinent History ENT History: Cataracts Cardiac History: High Cholesterol, Myocardial Infarction ([place]) Respiratory History: COPD Endocrine Medical History: Diabetes Type I Musculoskeletal History: Degenerative Disk Disease GI Medical History: GERD History: No Pertinent History Psycho-Social History: Anxiety Female Reproductive Disorders: Cervical Cancer Other Medical History: chronic back pain - Past Surgical History Past Surgical History: Yes Neuro Surgical History: No Pertinent History Cardiac: Cardiac Catheterization, Cardiac Stent Respiratory: No Pertinent History Gastrointestinal: Appendectomy, Cholecystectomy Genitourinary: No Pertinent History Musculoskeletal: Orthopedic Surgery Female Surgical History: Hysterectomy Other Surgical History: RIGHT HIP SURGERY ball placed, BACK SURGERY -unknown - Social History Smoking Status: Current every day smoker How long have you smoked: 54 Exposure to second hand smoke: Yes Drug Use: none Patient Lives Alone: No - Female History Hx Now: No - Nursing Vital Signs Nursing Vital Signs: Initial Vital Signs Temperature 97 F 08/11/17 14:09 Pulse Rate 75 08/11/17 14:09 Respiratory Rate 18 08/11/17 14:09 Blood Pressure 138/74 08/11/17 14:09 O2 Sat by Pulse Oximetry 93 L 08/11/17 14:09 Pain Scale Pain Intensity 10 - [place] Coma Score Best Eye Response (Mauro): (4) open spontaneously Best Verbal Response ([place]): (5) oriented Best Motor Response ([place]): (6) obeys commands [place] Total: 15 - Physical Exam General Appearance: cachetic, thin Head Injury: no evidence of injury Eye Exam: PERRL/EOMI ENT Exam: airway nml Neck Exam: normal inspection, No tenderness Respiratory/Chest Exam: chest tenderness (right lateral inferior ribs.), rib tenderness Cardiovascular Exam: normal heart sounds, regular rate/rhythm Gastrointestinal Exam: soft, No tenderness, No distention, No guarding, No ecchymosis Rectal Exam: not done Back Exam: normal inspection, No vertebral tenderness Extremity Exam: normal inspection, normal range of motion, pelvis stable, No deformities Neurologic Exam: alert, oriented x 3, cooperative, sensation nml, No motor deficits Skin Exam: normal color, warm, dry SpO2 Interpretation: normal SpO2: 93 Oxygen Delivery: Room Air - Course EKG Interpreted by Me: RATE, Sinus Rhythm, NORMAL AXIS, NORMAL INTERVALS, NORMAL QRS, NORMAL ST-T - Radiology Exams Chest X-ray Interpretation: Reviewed by me, Teleradiologist Report, Negative (stable nonacute chest per Dr Guerrero) Right Ribs X-ray Interpretation: Reviewed by me, Teleradiologist Report, Non-displaced Fracture (right 8th rib fracture per Dr Guerrero.) Ordered Tests: Active Orders 24 hr Category Date Time Status Clean Catch Urine Specimen STAT Care 08/11/17 15:25 Active EKG-ER Only STAT Care 08/11/17 15:25 Active IV Insertion STAT Care 08/11/17 15:25 Active Orthostatic Vital Signs STAT Care 08/11/17 15:27 Active CHEST 2 VIEWS (PA AND LAT) Stat Exams 08/11/17 16:11 Completed RIBS UNILATERAL Stat Exams 08/11/17 16:12 Completed CBC W DIFF Stat Lab 08/11/17 16:05 Completed CMP Stat Lab 08/11/17 16:05 Completed CULTURE,URINE Stat Lab 08/11/17 17:28 Received LIPASE Stat Lab 08/11/17 16:05 Completed Lactic Acid Stat Lab 08/11/17 16:00 Completed Lactic Acid Stat Lab 08/11/17 18:06 Ordered TROPONIN Q3H Lab 08/11/17 16:05 Received TROPONIN Q3H Lab 08/11/17 18:30 Ordered TROPONIN Q3H Lab 08/11/17 21:30 Ordered TROPONIN Q3H Lab 08/12/17 00:30 Ordered TROPONIN Q3H Lab 08/12/17 03:30 Ordered UA W/ MICROSCOPIC Stat Lab 08/11/17 17:28 Completed Medication Summary Discontinued Medications Generic Name Dose Route Start Last Admin Trade Name Freq PRN Reason Stop Dose Admin Sodium Chloride 1,000 mls @ 999 mls/hr 08/11/17 15:25 08/11/17 15:38 Sodium Chloride 0.9% 1000 Ml IV 08/11/17 16:25 999 mls/hr .Q1H1M STA Administration Sodium Chloride Confirm 08/11/17 15:33 Sodium Chloride 0.9% 1000 Ml Administered 08/11/17 15:34 Dose 1,000 mls @ ud .ROUTE .STK-MED ONE Ketorolac Tromethamine 30 mg 08/11/17 15:25 08/11/17 15:39 Toradol 30 Mg Injection IV 08/11/17 15:26 30 mg STAT ONE Administration Ketorolac Tromethamine Confirm 08/11/17 15:33 Toradol 30 Mg Injection Administered 08/11/17 15:34 Dose 30 mg .ROUTE .STK-MED ONE Lab/Rad Data: Laboratory Result Diagrams 08/11/17 16:05 08/11/17 16:05 Laboratory Results 08/11/17 08/11/17 08/11/17 Range/Units 17:28 16:05 16:05 WBC 10.9 H (4.0-10.5) K/mm3 RBC 4.61 (4.1-5.4) M/mm3 Hgb 13.9 (12.0-16.0) gm/dl Hct 41.2 (35-47) % MCV 89.4 (78-100) fl MCH 30.2 (26-32) pg MCHC 33.7 (32-36) g/dl RDW 15.5 H (11.5-14.0) % Plt Count 188 (150-450) K/mm3 MPV 11.6 H (6-9.5) fl Gran % 68.6 H (36.0-66.0) % Eos # (Auto) 0.29 (0-0.5) Absolute Lymphs (auto) 2.01 (1.0-4.6) Absolute Monos (auto) 1.07 (0.0-1.3) Lymphocytes % 18.5 L (24.0-44.0) % Monocytes % 9.9 (0.0-12.0) % Eosinophils % 2.7 (0.00-5.0) % Basophils % 0.3 (0.0-0.4) % Absolute Granulocytes 7.45 H (1.4-6.9) Basophils # 0.03 (0-0.4) Sodium 144 (137-145) mmol/L Potassium 4.1 (3.5-5.1) mmol/L Chloride 107 (98-107) mmol/L Carbon Dioxide 28 (22-30) mmol/L Anion Gap 14.4 (5-15) MEQ/L BUN 28 H (7-17) mg/dL Creatinine 1.12 H (0.52-1.04) mg/dL Estimated GFR 51.6 ML/MIN Glucose 95 (74-106) mg/dL Lactic Acid (0.4-2.0) Calcium 9.5 (8.4-10.2) mg/dL Total Bilirubin 0.20 (0.2-1.3) mg/dL AST 23 (14-36) U/L ALT 17 (0-35) U/L Alkaline Phosphatase 104 (38-126) U/L Serum Total Protein 6.2 L (6.3-8.2) g/dL Albumin 3.1 L (3.5-5.0) g/dL Lipase 20 L (23-300) U/L Ur Collection Type VOID Urine Color YELLOW (YELLOW) Urine Appearance CLOUDY (CLEAR) Urine pH 5.0 (5-6) Ur Specific [place] 1.015 (1.005-1.025) Urine Protein 300 (Negative) Urine Ketones NEGATIVE (NEGATIVE) Urine Blood TRACE NON-HEM (0-5) George/ul Urine Nitrite NEGATIVE (NEGATIVE) Urine Bilirubin NEGATIVE (NEGATIVE) Urine Urobilinogen NORMAL (0-1) mg/dL Ur Leukocyte Esterase LARGE (NEGATIVE) Urine Microscopic RBC 2-5 (0-2) /HPF Urine Microscopic WBC 25-50 (0-5) /HPF Ur Epithelial Cells FEW (FEW) /HPF Urine Bacteria MODERATE (NEGATIVE) /HPF Urine Culture Reflexed YES (NO) Urine Glucose 1000 (NEGATIVE) mg/dL Specimen Received 08/11/17 17:45 08/11/17 Range/Units 16:00 WBC (4.0-10.5) K/mm3 RBC (4.1-5.4) M/mm3 Hgb (12.0-16.0) gm/dl Hct (35-47) % MCV (78-100) fl MCH (26-32) pg MCHC (32-36) g/dl RDW (11.5-14.0) % Plt Count (150-450) K/mm3 MPV (6-9.5) fl Gran % (36.0-66.0) % Eos # (Auto) (0-0.5) Absolute Lymphs (auto) (1.0-4.6) Absolute Monos (auto) (0.0-1.3) Lymphocytes % (24.0-44.0) % Monocytes % (0.0-12.0) % Eosinophils % (0.00-5.0) % Basophils % (0.0-0.4) % Absolute Granulocytes (1.4-6.9) Basophils # (0-0.4) Sodium (137-145) mmol/L Potassium (3.5-5.1) mmol/L Chloride (98-107) mmol/L Carbon Dioxide (22-30) mmol/L Anion Gap (5-15) MEQ/L BUN (7-17) mg/dL Creatinine (0.52-1.04) mg/dL Estimated GFR ML/MIN Glucose (74-106) mg/dL Lactic Acid 2.0 (0.4-2.0) Calcium (8.4-10.2) mg/dL Total Bilirubin (0.2-1.3) mg/dL AST (14-36) U/L ALT (0-35) U/L Alkaline Phosphatase (38-126) U/L Serum Total Protein (6.3-8.2) g/dL Albumin (3.5-5.0) g/dL Lipase (23-300) U/L Ur Collection Type Urine Color (YELLOW) Urine Appearance (CLEAR) Urine pH (5-6) Ur Specific [place] (1.005-1.025) Urine Protein (Negative) Urine Ketones (NEGATIVE) Urine Blood (0-5) George/ul Urine Nitrite (NEGATIVE) Urine Bilirubin (NEGATIVE) Urine Urobilinogen (0-1) mg/dL Ur Leukocyte Esterase (NEGATIVE) Urine Microscopic RBC (0-2) /HPF Urine Microscopic WBC (0-5) /HPF Ur Epithelial Cells (FEW) /HPF Urine Bacteria (NEGATIVE) /HPF Urine Culture Reflexed (NO) Urine Glucose (NEGATIVE) mg/dL Specimen Received - Progress Progress: unchanged Counseled pt/family regarding: lab results, diagnosis, need for follow-up, rad results - Departure Time of Disposition: 18:15 Departure Disposition: Home Clinical Impression: Right rib fracture, UTI (urinary tract infection) Condition: Stable Critical Care Time: No Referrals: KERI ANTHONY [Primary Care Provider] - Additional Instructions: You had 2 falls at home. You now have a broken eighth rib on the right side. You also have a UTI. You were given Rocephin 1 g and fluids by IV in the ER. Take Keflex 500 mg 4 times a day for 7 days. Take Tylenol No. 3 one to 2 tablets every 4-6 hours as needed for pain. Follow up next week with your primary medical doctor. Prescriptions: Cephalexin Mh 500 mg [Keflex 500 mg] 1 cap PO QID #28 capsule Codeine Phosphate/APAP #3 [Tylenol #3 Tablet] 1 tab PO Q4-6HPRN PRN #10 tablet PRN Reason: Pain
[2017-08-11] MEDS ORDERED: Sodium Chloride 0.9% 1000 ML 1,000 ML IV STA (15:25)
[2017-08-11] MEDS ORDERED: TORAdol 30 mg Injection IV ONE (15:25)
[2017-08-11] MEDS ORDERED: Sodium Chloride 0.9% 1000 ML 1,000 ML ONE (15:33)
[2017-08-11] MEDS ORDERED: TORAdol 30 mg Injection ONE (15:33)
[2017-08-11 16:04] LABS: BASOPHIL % 0.3 % (0.0-0.4); Basophil (Absolute #) 0.03 (0-0.4); Eosinophil % 2.7 % (0.00-5.0); Eosinophil (Absolute #) 0.29 (0-0.5); Granulocyte Absolute (ANC) 7.45 (1.4-6.9); Granulocytes % 68.6 % (36.0-66.0); Hematocrit 41.2 % (35-47); Hemoglobin 13.9 gm/dl (12.0-16.0); Lymphocyte (Absolute #) 2.01 (1.0-4.6); Lymphocytes % 18.5 % (24.0-44.0); Mean Cell Volume 89.4 fl (78-100); Mean Corpuscular Hemoglobin 30.2 pg (26-32); Mean Corpuscular Hgb Concent. 33.7 g/dl (32-36); Mean Platelet Volume 11.6 fl (6-9.5); Monocyte (Absolute #) 1.07 (0.0-1.3); Monocytes % 9.9 % (0.0-12.0); Platelet Count 188 K/mm3 (150-450); Red Blood Count 4.61 M/mm3 (4.1-5.4); Red Cell Distribution Width 15.5 % (11.5-14.0); White Blood Count 10.9 K/mm3 (4.0-10.5)
--- NOTE | 2017-08-11 16:24 | XRAY ---
Indication: Fall. Near syncope. Comparison: March 20, 2017. PA/lateral chest unchanged again hyperinflated and clear. Heart and mediastinal structures within normal limits. Bony thorax intact again with mild osteopenia, remote T7 compression fracture, and degenerative changes. Impression: Stable nonacute hyperinflated chest with chronic features.
--- NOTE | 2017-08-11 16:49 | XRAY ---
Indication: Pain following fall. Comparison: None 2 views of the right ribs demonstrates nondisplaced posterior lateral 8th rib acute fracture. Elsewhere osteopenia, mild glenohumeral degenerative arthropathy, remote posterior 7/8 rib fractures, remote humeral neck fracture, remote T7 compression fracture, and scattered vascular calcifications. No other bony, articular, or soft tissue abnormalities.
[2017-08-11 17:23] LABS: ALBUMIN 3.1 g/dL (3.5-5.0); ANION GAP 14.4 MEQ/L (5-15); BILIRUBIN,TOTAL 0.2 mg/dL (0.2-1.3); Calcium 9.5 mg/dL (8.4-10.2); Creatinine 1 1.12 mg/dL (0.52-1.04); Potassium 4.1 mmol/L (3.5-5.1); Total Protein 6.2 g/dL (6.3-8.2)
[2017-08-11 17:56] LABS: Appearance CLOUDY (CLEAR); Specific Gravity 1.015 (1.005-1.025)
[2017-08-11 17:57] LABS: Glucose 1000 mg/dL (NEGATIVE); Leukocyte Esterase LARGE (NEGATIVE); Nitrite NEGATIVE (NEGATIVE); Protein,Urine Dip 300 (Negative)
[2017-08-11 17:58] LABS: Bilirubin NEGATIVE (NEGATIVE); Blood TRACE NON-HEM Ery/ul (0-5); Ketones NEGATIVE (NEGATIVE); Urobilinogen NORMAL mg/dL (0-1)
[2017-08-11 18:00] LABS: Bacteria MODERATE /HPF (NEGATIVE); Epithelial Cells FEW /HPF (FEW); WBC 25-50 /HPF (0-5)
[2017-08-11] MEDS ORDERED: ROCEPHIN 1 Gm-D5w 50 ml Bag** 1 G/50 ML IVPB IV STA (18:16)
[2017-08-11] MEDS ORDERED: ROCEPHIN 1 Gm-D5w 50 ml Bag** 1 G/50 ML IVPB IV ONE (18:19)
[2017-08-11 18:29] VITALS: BP 162/72; O2SAT 92
== END 2017-08-11 18:39 | disposition home or self-care (01) ==
LOC: ED 14:08
DX: S22.31XA Fracture of one rib, right side, initial encounter for closed fracture (principal); N39.0 Urinary tract infection, site not specified; W01.198A Fall on same level from slipping, tripping and stumbling with subsequent striking against other object, initial encounter; E10.9 Type 1 diabetes mellitus without complications; J44.9 Chronic obstructive pulmonary disease, unspecified; I25.10 Atherosclerotic heart disease of native coronary artery without angina pectoris; Z98.61 Coronary angioplasty status; I25.2 Old myocardial infarction
CPT/HCPCS: 36415; 71046; 71100; 80053; 81000; 83605; 83690; 84484; 85025; 87077; 87086; 87186; 93005; 96360; 96361; 96365; 96374; 99284; J0696; J1885

== ENCOUNTER 2017-08-14 14:23 | Inpatient (IN) | payer MEDICARE ==
[2017-08-14 15:00] LABS: A-aADO2 96; ABG HEMOGLOBIN 13.2; ABG POTASSIUM 4.6 (3.5-5.1); ARTERIAL BLOOD GAS BASE EXCESS -2.2 (-2.0-2.0); ARTERIAL BLOOD GAS FIO2 28 %; ARTERIAL BLOOD GAS PCO2 44 mmHg (35-45); ARTERIAL BLOOD GAS pH 7.34 (7.35-7.45); HCO3- 23.7 (22-28); HGB O2 SAT 81.7 g/dF (94-100); Lactic Acid 2.2 (0.4-2.0); paO2 pAO1 0.34
[2017-08-14 15:01] LABS: ABG SITE LEFT BRACHIAL; ARTERIAL BLOOD GAS PO2 49 mmHg (75-100)
[2017-08-14] MEDS ORDERED: Zofran 4 MG/2 ML VIAL IV PRN (15:02)
[2017-08-14 15:08] LABS: BASOPHIL % 0.2 % (0.0-0.4); Basophil (Absolute #) 0.03 (0-0.4); Eosinophil % 0.8 % (0.00-5.0); Eosinophil (Absolute #) 0.14 (0-0.5); Granulocyte Absolute (ANC) 15.58 (1.4-6.9); Granulocytes % 85.7 % (36.0-66.0); Hematocrit 40.1 % (35-47); Hemoglobin 13.2 gm/dl (12.0-16.0); Lymphocyte (Absolute #) 1.08 (1.0-4.6); Lymphocytes % 5.9 % (24.0-44.0); Mean Corpuscular Hemoglobin 30.3 pg (26-32); Mean Corpuscular Hgb Concent. 32.9 g/dl (32-36); Mean Platelet Volume 11.7 fl (6-9.5); Monocyte (Absolute #) 1.34 (0.0-1.3); Monocytes % 7.4 % (0.0-12.0); Platelet Count 148 K/mm3 (150-450); Red Blood Count 4.36 M/mm3 (4.1-5.4); Red Cell Distribution Width 16.3 % (11.5-14.0); White Blood Count 18.2 K/mm3 (4.0-10.5)
[2017-08-14] MEDS ORDERED: MORPHINE SULFATE 4 MG INJ IV PRN (15:12)
[2017-08-14] MEDS: Lactated Ringers 2,000 ML IV SCH ×2 (15:14→16:19)
[2017-08-14 15:42] LABS: ALBUMIN 3.2 g/dL (3.5-5.0); ANION GAP 15.3 MEQ/L (5-15); BILIRUBIN,TOTAL 0.4 mg/dL (0.2-1.3); Calcium 9.1 mg/dL (8.4-10.2); Creatinine 1 2.08 mg/dL (0.52-1.04); Potassium 4.7 mmol/L (3.5-5.1); Total Protein 6.4 g/dL (6.3-8.2)
[2017-08-14] MEDS: NovoLOG Insulin SQ PRN ×2 (16:07→22:26)
[2017-08-14] MEDS: Zosyn 3.375GM/100 Ml D5W 3.375 GM/100 ML IVPB IV SCH ×2 (16:09→18:12)
[2017-08-14 16:37] LABS: Appearance CLOUDY (CLEAR); Leukocyte Esterase 2+ (NEGATIVE); Nitrite POSITIVE (NEGATIVE); Protein,Urine Dip 100 (Negative)
[2017-08-14 16:38] LABS: Bilirubin NEGATIVE (NEGATIVE); Blood TRACE NON-HEM Ery/ul (0-5); Glucose 50 mg/dL (NEGATIVE); Ketones NEGATIVE (NEGATIVE); Urobilinogen NORMAL mg/dL (0-1)
[2017-08-14 16:39] LABS: Bacteria FEW /HPF (NEGATIVE); RBC 0-2 /HPF (0-2)
[2017-08-14 17:35] LABS: Lactic Acid 1.9 (0.4-2.0)
[2017-08-14] MEDS: Lactated Ringers 1,000 ML IV SCH (18:20)
[2017-08-14] MEDS ORDERED: Lactated Ringers 1,000 ML IV ONE ×2 (19:30→19:54)
--- NOTE | 2017-08-14 20:16 | PCM.HP ---
History of Present Illness - Chief Complaint Chief Complaint: Sepsis, UTI Date: 08/14/17 History of Present Illness: is a 67 year old female. who was seen in the ER after a fall from dehydration and UTI and resulted in rib fracture. She was given fluids and antibiotic and sent home and since then she has been too weak to get up and move on her own very fatigued. She has not been eating or drinking much and her sugars have been very high. She had appointment in the clinic and was brought in wheelchair by her . She was oriented but very drowsy and weak and low blood pressure and sent immediately for admission. She denies rajeev abdominal pain nausea or vomiting. She has intermittent diarrhea chronically. She has had recurent uti. She does not feel short of breath and no coughing. She has pain at the site of the rib fracture and chronically in her low back and posterior neck but is otherwise painfree. - Review of Systems Constitutional: Fatigue, Lethargy, Weakness, No Fever, No Chills Eyes: No Symptoms Ears, Nose, & Throat: No Symptoms Respiratory: No Cough, No Short Of Breath Cardiac: No Chest Pain, No Edema, No Syncope Abdominal/Gastrointestinal: Diarrhea, No Abdominal Pain, No Nausea, No Vomiting Genitourinary Symptoms: Frequency, Incontinence, No Dysuria Musculoskeletal: Back Pain, Neck Pain, Fall, Injury, No Deformity, No Joint Redness, No Joint Swelling Skin: No Rash Neurological: No Dizziness, No Focal Weakness, No Sensory Changes Psychological: No Symptoms Endocrine: No Symptoms Hematologic/Lymphatic: No Symptoms Immunological/Allergic: No Symptoms Medications & Allergies Home Medications: Home Medication List Gabapentin 300 mg PO TID 02/27/17 [History Confirmed 08/14/17] Insulin Glargine,Hum.rec.anlog [Lantus] 25 unit SQ HS 02/27/17 [History Confirmed 08/14/17] Levothyroxine Sodium 25 Mcg [Synthroid 25 Mcg] 25 mcg PO DAILY 02/27/17 [ History Confirmed 08/14/17] Pravastatin Sodium [Pravachol] 10 mg PO HS 02/27/17 [History Confirmed 08/14/17] Carvedilol 3.125 mg [Coreg 3.125 MG] 3.125 mg PO BID 07/19/17 [History Confirmed 08/14/17] Ranitidine HCl [Zantac] 300 mg PO DAILY 07/19/17 [History Confirmed 08/14/17] Tramadol HCl 50 mg [Ultram 50 mg] 50 mg PO DAILY 07/19/17 [History Confirmed 08/14/17] Alprazolam 0.5 mg [xanAX 0.5 MG] 1 tab PO BID 08/14/17 [History Confirmed 08/14/17] Insulin Aspart [NovoLOG Insulin] 0 units SQ UD 08/14/17 [History Confirmed ] Sulfamethoxazole/Trimethoprim [Sulfamethoxazole-Tmp Ds Tablet] 1 tab PO BID [History Confirmed 08/14/17] cephALEXin [Cephalexin] 1 cap PO TID 08/14/17 [History Confirmed 08/14/17] Allergies/Adverse Reactions: Allergies Allergy/AdvReac Type Severity Reaction Status Date / Time No Known Drug Allergies Allergy Verified 08/11/17 14:26 - Past Medical History Past Medical History: Yes Neurological History: No Pertinent History ENT History: Cataracts Cardiac History: High Cholesterol, Myocardial Infarction ([place]) Respiratory History: COPD Endocrine Medical History: Diabetes Type I Musculoskelatal History: Degenerative Disk Disease GI Medical History: GERD History: No Pertinent History Pyscho-Social History: Anxiety Reproductive Disorders: Cervical Cancer Comment: chronic back pain - Female History Are you now?: No - Past Surgical History Past Surgical History: Yes Neuro Surgical History: No Pertinent History Cardiac History: Cardiac Catheterization, Cardiac Stent Respiratory Surgery: No Pertinent History GI Surgical History: Appendectomy, Cholecystectomy Genitourinary Surgical Hx: No Pertinent History Musculskeletal Surgical Hx: Orthopedic Surgery Female Surgical History: Hysterectomy Other Surgical History: RIGHT HIP SURGERY ball placed, BACK SURGERY -unknown - Social History Smoking Status: Current every day smoker How long have you smoked: 54 years Exposure to second hand smoke: Yes Alcohol: Rarely Drug Use: none - Physical Exam Vital Signs: Vital Signs - 24 hr Temp Pulse Resp BP BP Pulse Ox 08/14/17 17:09 74 107/51 107/51 08/14/17 16:21 98.4 F 72 73/48 94 L 08/14/17 15:17 94 L 08/14/17 14:40 88 L 08/14/17 14:32 98.4 F 72 16 73/48 88 L Oxygen-Last 24 hours O2 Percentage 2 Liters = 28% General Appearance: no apparent distress, alert, thin Neurologic Exam: alert, oriented x 3, cooperative, normal mood/affect, No motor deficits Eye Exam: PERRL/EOMI, eyes nml inspection, pale conjunctivae, No scleral icterus Ears, Nose, Throat Exam: pharynx normal, dry mucous membranes Neck Exam: normal inspection, non-tender, supple, full range of motion Respiratory Exam: rhonchi (mild bilateral), No respiratory distress, No crackles /rales, No wheezing Cardiovascular Exam: regular rate/rhythm, normal heart sounds, normal peripheral pulses, No edema Gastrointestinal/Abdomen Exam: soft, normal bowel sounds, No tenderness, No distention, No mass Back Exam: normal inspection, No CVA tenderness, No vertebral tenderness Extremity Exam: normal inspection, normal range of motion, pelvis stable Skin Exam: warm, dry, pale, No rash Lymphatic Exam: No adenopathy Results - Labs Lab/Micro Results: Lab Results-Last 24 Hours 08/14/17 08/14/17 08/14/17 Range/Units 14:46 14:47 15:11 WBC 18.2 H (4.0-10.5) K/mm3 RBC 4.36 (4.1-5.4) M/mm3 Hgb 13.2 (12.0-16.0) gm/dl Hct 40.1 (35-47) % MCV 92.0 (78-100) fl MCH 30.3 (26-32) pg MCHC 32.9 (32-36) g/dl RDW 16.3 H (11.5-14.0) % Plt Count 148 L (150-450) K/mm3 MPV 11.7 H (6-9.5) fl Gran % 85.7 H (36.0-66.0) % Eos # (Auto) 0.14 (0-0.5) Absolute Lymphs (auto) 1.08 (1.0-4.6) Absolute Monos (auto) 1.34 H (0.0-1.3) Lymphocytes % 5.9 L (24.0-44.0) % Monocytes % 7.4 (0.0-12.0) % Eosinophils % 0.8 (0.00-5.0) % Basophils % 0.2 (0.0-0.4) % Absolute Granulocytes 15.58 H (1.4-6.9) Basophils # 0.03 (0-0.4) Puncture Site LEFT BRACHIAL pCO2 44 (35-45) mmHg pO2 49 L* (75-100) mmHg Base Excess -2.2 L (-2.0-2.0) O2 Saturation 81.7 L (94-100) g/dF ABG pH 7.34 L (7.35-7.45) ABG HCO3 23.7 (22-28) ABG O2 Sat (Measured) 86.0 L (95-100) % Raimundo Test NOT APPLICABLE A-a Gradient 96 a/A Ratio 0.34 Hemoglobin 13.2 Carboxyhemoglobin 5.0 (0.0-6.9) % THgb Methemoglobin 0.0 L (1.4-1.5) % Potassium 4.6 (3.5-5.1) Glucose 409 H (70-110) Temperature 37.0 C POC O2 Flow Rate 28 % Sodium (137-145) mmol/L Chloride (98-107) mmol/L Carbon Dioxide (22-30) mmol/L Anion Gap (5-15) MEQ/L BUN (7-17) mg/dL Creatinine (0.52-1.04) mg/dL Estimated GFR ML/MIN Hemoglobin A1c (4.5-6.0) % Lactic Acid 2.2 H (0.4-2.0) Calcium (8.4-10.2) mg/dL Total Bilirubin (0.2-1.3) mg/dL AST (14-36) U/L ALT (0-35) U/L Alkaline Phosphatase (38-126) U/L Serum Total Protein (6.3-8.2) g/dL Albumin (3.5-5.0) g/dL Ur Collection Type Urine Color (YELLOW) Urine Appearance (CLEAR) Urine pH (5-6) Ur Specific [place] (1.005-1.025) Urine Protein (Negative) Urine Ketones (NEGATIVE) Urine Blood (0-5) George/ul Urine Nitrite (NEGATIVE) Urine Bilirubin (NEGATIVE) Urine Urobilinogen (0-1) mg/dL Ur Leukocyte Esterase (NEGATIVE) Urine Microscopic RBC (0-2) /HPF Urine Microscopic WBC (0-5) /HPF Urine Bacteria (NEGATIVE) /HPF Urine Glucose (NEGATIVE) mg/dL Specimen Received 08/14/17 08/14/17 08/14/17 Range/Units 15:11 15:58 17:00 WBC (4.0-10.5) K/mm3 RBC (4.1-5.4) M/mm3 Hgb (12.0-16.0) gm/dl Hct (35-47) % MCV (78-100) fl MCH (26-32) pg MCHC (32-36) g/dl RDW (11.5-14.0) % Plt Count (150-450) K/mm3 MPV (6-9.5) fl Gran % (36.0-66.0) % Eos # (Auto) (0-0.5) Absolute Lymphs (auto) (1.0-4.6) Absolute Monos (auto) (0.0-1.3) Lymphocytes % (24.0-44.0) % Monocytes % (0.0-12.0) % Eosinophils % (0.00-5.0) % Basophils % (0.0-0.4) % Absolute Granulocytes (1.4-6.9) Basophils # (0-0.4) Puncture Site pCO2 (35-45) mmHg pO2 (75-100) mmHg Base Excess (-2.0-2.0) O2 Saturation (94-100) g/dF ABG pH (7.35-7.45) ABG HCO3 (22-28) ABG O2 Sat (Measured) (95-100) % Raimundo Test A-a Gradient a/A Ratio Hemoglobin Carboxyhemoglobin (0.0-6.9) % THgb Methemoglobin (1.4-1.5) % Potassium 4.7 (3.5-5.1) Glucose 388 H (70-110) Temperature C POC O2 Flow Rate % Sodium 136 L (137-145) mmol/L Chloride 101 (98-107) mmol/L Carbon Dioxide 25 (22-30) mmol/L Anion Gap 15.3 H (5-15) MEQ/L BUN 37 H (7-17) mg/dL Creatinine 2.08 H (0.52-1.04) mg/dL Estimated GFR 25.2 ML/MIN Hemoglobin A1c (4.5-6.0) % Lactic Acid 1.9 (0.4-2.0) Calcium 9.1 (8.4-10.2) mg/dL Total Bilirubin 0.40 (0.2-1.3) mg/dL AST 16 (14-36) U/L ALT 15 (0-35) U/L Alkaline Phosphatase 114 (38-126) U/L Serum Total Protein 6.4 (6.3-8.2) g/dL Albumin 3.2 L (3.5-5.0) g/dL Ur Collection Type UNK Urine Color BROWN (YELLOW) Urine Appearance CLOUDY (CLEAR) Urine pH 5.0 (5-6) Ur Specific [place] 1.020 (1.005-1.025) Urine Protein 100 (Negative) Urine Ketones NEGATIVE (NEGATIVE) Urine Blood TRACE NON-HEM (0-5) George/ul Urine Nitrite POSITIVE (NEGATIVE) Urine Bilirubin NEGATIVE (NEGATIVE) Urine Urobilinogen NORMAL (0-1) mg/dL Ur Leukocyte Esterase 2+ (NEGATIVE) Urine Microscopic RBC 0-2 (0-2) /HPF Urine Microscopic WBC 5-10 (0-5) /HPF Urine Bacteria FEW (NEGATIVE) /HPF Urine Glucose 50 (NEGATIVE) mg/dL Specimen Received 08/14/17 16:15 08/14/17 Range/Units 17:08 WBC (4.0-10.5) K/mm3 RBC (4.1-5.4) M/mm3 Hgb (12.0-16.0) gm/dl Hct (35-47) % MCV (78-100) fl MCH (26-32) pg MCHC (32-36) g/dl RDW (11.5-14.0) % Plt Count (150-450) K/mm3 MPV (6-9.5) fl Gran % (36.0-66.0) % Eos # (Auto) (0-0.5) Absolute Lymphs (auto) (1.0-4.6) Absolute Monos (auto) (0.0-1.3) Lymphocytes % (24.0-44.0) % Monocytes % (0.0-12.0) % Eosinophils % (0.00-5.0) % Basophils % (0.0-0.4) % Absolute Granulocytes (1.4-6.9) Basophils # (0-0.4) Puncture Site pCO2 (35-45) mmHg pO2 (75-100) mmHg Base Excess (-2.0-2.0) O2 Saturation (94-100) g/dF ABG pH (7.35-7.45) ABG HCO3 (22-28) ABG O2 Sat (Measured) (95-100) % Raimundo Test A-a Gradient a/A Ratio Hemoglobin Carboxyhemoglobin (0.0-6.9) % THgb Methemoglobin (1.4-1.5) % Potassium (3.5-5.1) Glucose (70-110) Temperature C POC O2 Flow Rate % Sodium (137-145) mmol/L Chloride (98-107) mmol/L Carbon Dioxide (22-30) mmol/L Anion Gap (5-15) MEQ/L BUN (7-17) mg/dL Creatinine (0.52-1.04) mg/dL Estimated GFR ML/MIN Hemoglobin A1c 9.73 H (4.5-6.0) % Lactic Acid (0.4-2.0) Calcium (8.4-10.2) mg/dL Total Bilirubin (0.2-1.3) mg/dL AST (14-36) U/L ALT (0-35) U/L Alkaline Phosphatase (38-126) U/L Serum Total Protein (6.3-8.2) g/dL Albumin (3.5-5.0) g/dL Ur Collection Type Urine Color (YELLOW) Urine Appearance (CLEAR) Urine pH (5-6) Ur Specific [place] (1.005-1.025) Urine Protein (Negative) Urine Ketones (NEGATIVE) Urine Blood (0-5) George/ul Urine Nitrite (NEGATIVE) Urine Bilirubin (NEGATIVE) Urine Urobilinogen (0-1) mg/dL Ur Leukocyte Esterase (NEGATIVE) Urine Microscopic RBC (0-2) /HPF Urine Microscopic WBC (0-5) /HPF Urine Bacteria (NEGATIVE) /HPF Urine Glucose (NEGATIVE) mg/dL Specimen Received - Other Procedures and Tests Respiratory Therapy 08/14/17 15:05 Oxygen NASAL CANNULA 4 lpm Assessment/Plan (1) UTI (urinary tract infection) Current Visit: Yes Status: Acute Qualifiers: Assessment & Plan: was on keflex at home and changed by the er to bactrim she has been taking the culture was pansensitive with still dirty urine and persistent symptoms she is placed on zosyn with urine and blood cultures pending her low blood pressure improved after the 2L bolus of LR and her mentation was improved as well. She continues to have hypoxemia now on oximizer with no signs of respiratory distress checking cxr now she has hyperglycemia without ketoacidosis the lactic acidosis was mild and improved with the bolus and is now showing good peripheral perfusion Will continue fluids repeat bolus prn Martins to monitor I/O KENYATTA from the dehydration secondary to infection and hyperglycemia continue lantus + Moderate dose sliding scale while monitoring diet lovenox for ppx on H2 terri chronically Code(s): N39.0 - URINARY TRACT INFECTION, SITE NOT SPECIFIED (2) Sepsis Current Visit: Yes Status: Acute (3) Acute kidney injury Current Visit: Yes Status: Acute Code(s): N17.9 - ACUTE KIDNEY FAILURE, UNSPECIFIED (4) Acute hypoxemic respiratory failure Current Visit: Yes Status: Acute Code(s): J96.01 - ACUTE RESPIRATORY FAILURE WITH HYPOXIA (5) COPD (chronic obstructive pulmonary disease) Current Visit: No Status: Chronic (6) Right rib fracture Current Visit: Yes Status: Acute Code(s): S22.31XA - FRACTURE OF ONE RIB, RIGHT SIDE, INIT FOR CLOS FX (7) Tobacco dependence Current Visit: Yes Status: Chronic Code(s): F17.200 - NICOTINE DEPENDENCE, UNSPECIFIED, UNCOMPLICATED (8) Diabetes mellitus Current Visit: Yes Status: Chronic Qualifiers: Diabetes mellitus type: type 1 Diabetes mellitus complication status: with hyperglycemia Qualified Code(s): E10.65 - Type 1 diabetes mellitus with hyperglycemia Code(s): E11.9 - TYPE 2 DIABETES MELLITUS WITHOUT COMPLICATIONS (9) Coronary artery disease Current Visit: Yes Status: Chronic Code(s): I25.10 - ATHSCL HEART DISEASE OF [place] CORONARY ARTERY W/O ANG PCTRS
[2017-08-14] MEDS ORDERED: Zocor 10MG PO SCH (22:00)
[2017-08-14] MEDS ORDERED: NON-FORMULARY ITEM (Pravastatin Sodium [Pravachol] 10 MG) PO SCH (22:00)
[2017-08-14] MEDS: ENOXAPARIN SODIUM SQ SCH (22:26)
[2017-08-14] MEDS: NEURONTIN 300 MG PO SCH (22:26)
[2017-08-14] MEDS: xanAX 0.5 MG PO SCH (22:26)
[2017-08-14] MEDS: Lantus Insulin SQ SCH (22:26)
[2017-08-15] MEDS: Zosyn 3.375GM/100 Ml D5W 3.375 GM/100 ML IVPB IV SCH ×4 (00:07→19:03)
[2017-08-15] MEDS: Lactated Ringers 1,000 ML IV SCH ×3 (04:02→19:03)
[2017-08-15 06:22] LABS: BASOPHIL % 0.2 % (0.0-0.4); Basophil (Absolute #) 0.02 (0-0.4); Eosinophil % 3.2 % (0.00-5.0); Eosinophil (Absolute #) 0.39 (0-0.5); Granulocyte Absolute (ANC) 9.71 (1.4-6.9); Granulocytes % 78.8 % (36.0-66.0); Hematocrit 36.4 % (35-47); Hemoglobin 11.8 gm/dl (12.0-16.0); Lymphocyte (Absolute #) 1.44 (1.0-4.6); Lymphocytes % 11.7 % (24.0-44.0); Mean Cell Volume 91.9 fl (78-100); Mean Corpuscular Hgb Concent. 32.4 g/dl (32-36); Mean Platelet Volume 11.8 fl (6-9.5); Monocyte (Absolute #) 0.75 (0.0-1.3); Monocytes % 6.1 % (0.0-12.0); Platelet Count 137 K/mm3 (150-450); Red Blood Count 3.96 M/mm3 (4.1-5.4); Red Cell Distribution Width 16.2 % (11.5-14.0); White Blood Count 12.3 K/mm3 (4.0-10.5)
[2017-08-15 06:25] LABS: ANION GAP 8.8 MEQ/L (5-15); Calcium 8.5 mg/dL (8.4-10.2); Creatinine 1 1.91 mg/dL (0.52-1.04); Potassium 4.5 mmol/L (3.5-5.1)
[2017-08-15 06:28] LABS: Mean Corpuscular Hemoglobin 29.7 pg (26-32)
--- NOTE | 2017-08-15 08:23 | PCM.NOTE ---
Date and Time: 08/15/17814 Subjective Assessment: feeling better breathing well more energy eating well this am still very weak and feels like she has swelling no shortness of breath or chest pain. Objective Exam General Appearance: thin Neurologic Exam: alert, oriented x 3, cooperative, normal mood/affect, nml cerebellar function, sensation nml, No motor deficits Skin Exam: normal color, warm, dry Eye Exam: PERRL, EOMI, eyes nml inspection Ears, Nose, Throat Exam: normal ENT inspection, pharynx normal, moist mucous membranes Neck Exam: normal inspection, non-tender, supple, full range of motion Respiratory Exam: normal breath sounds, lungs clear, No respiratory distress Cardiovascular Exam: regular rate/rhythm, normal heart sounds Gastrointestinal/Abdomen Exam: soft, No tenderness, No mass Extremity Exam: normal inspection, normal range of motion Back Exam: normal inspection, normal range of motion, No CVA tenderness, No vertebral tenderness Pelvic Exam: deferred Rectal Exam: deferred OBJECTIVE DATA Vital Signs: Vital Signs - 24 hr Temp Pulse Resp BP BP Pulse Ox 08/15/17 07:30 97.9 F 83 14 131/65 96 08/15/17 06:54 92 L 08/15/17 06:45 93 L 08/15/17 04:55 98.0 F 71 12 125/60 95 08/15/17 00:19 97.9 F 68 12 106/57 99 08/14/17 23:34 97 08/14/17 21:21 157/70 08/14/17 20:14 98.1 F 70 16 81/44 98 08/14/17 17:09 74 107/51 107/51 08/14/17 16:21 98.4 F 72 73/48 94 L 08/14/17 15:17 94 L 08/14/17 14:40 88 L 08/14/17 14:32 98.4 F 72 16 73/48 88 L Oxygen-Last 24 hours O2 Percentage 2 Liters = 28% Oxygen Flowrate (L/min)-RT 10 Oxygen Flowrate (L/min)-RT 10 Oxygen Flowrate (L/min)-RT 10 Pain Assessment - Last Documented Pain Intensity 0 Pain Scale Used 0-10 Pain Scale Intake and Output: Intake & Output 08/12/17 08/13/17 08/14/17 08/15/17 11:59 11:59 11:59 11:59 Intake Total 4331 Output Total 300 Balance 4031 Weight 51.5 kg Lab Results: Accuchecks Date 08/15/17 Date 08/15/17 Date 08/14/17 Time 04:00 Time 00:00 Time 22:00 Accucheck Value: 196 Accucheck Value: 303 Accucheck Value: 264 Lab Results-Last 24 Hours 08/14/17 08/14/17 08/14/17 Range/Units 14:46 14:47 15:11 WBC 18.2 H (4.0-10.5) K/mm3 RBC 4.36 (4.1-5.4) M/mm3 Hgb 13.2 (12.0-16.0) gm/dl Hct 40.1 (35-47) % MCV 92.0 (78-100) fl MCH 30.3 (26-32) pg MCHC 32.9 (32-36) g/dl RDW 16.3 H (11.5-14.0) % Plt Count 148 L (150-450) K/mm3 MPV 11.7 H (6-9.5) fl Gran % 85.7 H (36.0-66.0) % Eos # (Auto) 0.14 (0-0.5) Absolute Lymphs (auto) 1.08 (1.0-4.6) Absolute Monos (auto) 1.34 H (0.0-1.3) Lymphocytes % 5.9 L (24.0-44.0) % Monocytes % 7.4 (0.0-12.0) % Eosinophils % 0.8 (0.00-5.0) % Basophils % 0.2 (0.0-0.4) % Absolute Granulocytes 15.58 H (1.4-6.9) Basophils # 0.03 (0-0.4) Puncture Site LEFT BRACHIAL pCO2 44 (35-45) mmHg pO2 49 L* (75-100) mmHg Base Excess -2.2 L (-2.0-2.0) O2 Saturation 81.7 L (94-100) g/dF ABG pH 7.34 L (7.35-7.45) ABG HCO3 23.7 (22-28) ABG O2 Sat (Measured) 86.0 L (95-100) % Raimundo Test NOT APPLICABLE A-a Gradient 96 a/A Ratio 0.34 Hemoglobin 13.2 Carboxyhemoglobin 5.0 (0.0-6.9) % THgb Methemoglobin 0.0 L (1.4-1.5) % Potassium 4.6 (3.5-5.1) Glucose 409 H (70-110) Temperature 37.0 C POC O2 Flow Rate 28 % Sodium (137-145) mmol/L Chloride (98-107) mmol/L Carbon Dioxide (22-30) mmol/L Anion Gap (5-15) MEQ/L BUN (7-17) mg/dL Creatinine (0.52-1.04) mg/dL Estimated GFR ML/MIN Hemoglobin A1c (4.5-6.0) % Lactic Acid 2.2 H (0.4-2.0) Calcium (8.4-10.2) mg/dL Magnesium (1.6-2.3) mg/dL Total Bilirubin (0.2-1.3) mg/dL AST (14-36) U/L ALT (0-35) U/L Alkaline Phosphatase (38-126) U/L Serum Total Protein (6.3-8.2) g/dL Albumin (3.5-5.0) g/dL Ur Collection Type Urine Color (YELLOW) Urine Appearance (CLEAR) Urine pH (5-6) Ur Specific Lane (1.005-1.025) Urine Protein (Negative) Urine Ketones (NEGATIVE) Urine Blood (0-5) George/ul Urine Nitrite (NEGATIVE) Urine Bilirubin (NEGATIVE) Urine Urobilinogen (0-1) mg/dL Ur Leukocyte Esterase (NEGATIVE) Urine Microscopic RBC (0-2) /HPF Urine Microscopic WBC (0-5) /HPF Urine Bacteria (NEGATIVE) /HPF Urine Glucose (NEGATIVE) mg/dL Specimen Received 08/14/17 08/14/17 08/14/17 Range/Units 15:11 15:58 17:00 WBC (4.0-10.5) K/mm3 RBC (4.1-5.4) M/mm3 Hgb (12.0-16.0) gm/dl Hct (35-47) % MCV (78-100) fl MCH (26-32) pg MCHC (32-36) g/dl RDW (11.5-14.0) % Plt Count (150-450) K/mm3 MPV (6-9.5) fl Gran % (36.0-66.0) % Eos # (Auto) (0-0.5) Absolute Lymphs (auto) (1.0-4.6) Absolute Monos (auto) (0.0-1.3) Lymphocytes % (24.0-44.0) % Monocytes % (0.0-12.0) % Eosinophils % (0.00-5.0) % Basophils % (0.0-0.4) % Absolute Granulocytes (1.4-6.9) Basophils # (0-0.4) Puncture Site pCO2 (35-45) mmHg pO2 (75-100) mmHg Base Excess (-2.0-2.0) O2 Saturation (94-100) g/dF ABG pH (7.35-7.45) ABG HCO3 (22-28) ABG O2 Sat (Measured) (95-100) % Raimundo Test A-a Gradient a/A Ratio Hemoglobin Carboxyhemoglobin (0.0-6.9) % THgb Methemoglobin (1.4-1.5) % Potassium 4.7 (3.5-5.1) Glucose 388 H (70-110) Temperature C POC O2 Flow Rate % Sodium 136 L (137-145) mmol/L Chloride 101 (98-107) mmol/L Carbon Dioxide 25 (22-30) mmol/L Anion Gap 15.3 H (5-15) MEQ/L BUN 37 H (7-17) mg/dL Creatinine 2.08 H (0.52-1.04) mg/dL Estimated GFR 25.2 ML/MIN Hemoglobin A1c (4.5-6.0) % Lactic Acid 1.9 (0.4-2.0) Calcium 9.1 (8.4-10.2) mg/dL Magnesium (1.6-2.3) mg/dL Total Bilirubin 0.40 (0.2-1.3) mg/dL AST 16 (14-36) U/L ALT 15 (0-35) U/L Alkaline Phosphatase 114 (38-126) U/L Serum Total Protein 6.4 (6.3-8.2) g/dL Albumin 3.2 L (3.5-5.0) g/dL Ur Collection Type UNK Urine Color BROWN (YELLOW) Urine Appearance CLOUDY (CLEAR) Urine pH 5.0 (5-6) Ur Specific Lane 1.020 (1.005-1.025) Urine Protein 100 (Negative) Urine Ketones NEGATIVE (NEGATIVE) Urine Blood TRACE NON-HEM (0-5) George/ul Urine Nitrite POSITIVE (NEGATIVE) Urine Bilirubin NEGATIVE (NEGATIVE) Urine Urobilinogen NORMAL (0-1) mg/dL Ur Leukocyte Esterase 2+ (NEGATIVE) Urine Microscopic RBC 0-2 (0-2) /HPF Urine Microscopic WBC 5-10 (0-5) /HPF Urine Bacteria FEW (NEGATIVE) /HPF Urine Glucose 50 (NEGATIVE) mg/dL Specimen Received 08/14/17 16:15 08/14/17 08/15/17 08/15/17 Range/Units 17:08 05:45 05:45 WBC 12.3 H (4.0-10.5) K/mm3 RBC 3.96 L (4.1-5.4) M/mm3 Hgb 11.8 L (12.0-16.0) gm/dl Hct 36.4 (35-47) % MCV 91.9 (78-100) fl MCH 29.7 (26-32) pg MCHC 32.4 (32-36) g/dl RDW 16.2 H (11.5-14.0) % Plt Count 137 L (150-450) K/mm3 MPV 11.8 H (6-9.5) fl Gran % 78.8 H (36.0-66.0) % Eos # (Auto) 0.39 (0-0.5) Absolute Lymphs (auto) 1.44 (1.0-4.6) Absolute Monos (auto) 0.75 (0.0-1.3) Lymphocytes % 11.7 L (24.0-44.0) % Monocytes % 6.1 (0.0-12.0) % Eosinophils % 3.2 (0.00-5.0) % Basophils % 0.2 (0.0-0.4) % Absolute Granulocytes 9.71 H (1.4-6.9) Basophils # 0.02 (0-0.4) Puncture Site pCO2 (35-45) mmHg pO2 (75-100) mmHg Base Excess (-2.0-2.0) O2 Saturation (94-100) g/dF ABG pH (7.35-7.45) ABG HCO3 (22-28) ABG O2 Sat (Measured) (95-100) % Raimundo Test A-a Gradient a/A Ratio Hemoglobin Carboxyhemoglobin (0.0-6.9) % THgb Methemoglobin (1.4-1.5) % Potassium 4.5 (3.5-5.1) Glucose 178 H (70-110) Temperature C POC O2 Flow Rate % Sodium 136 L (137-145) mmol/L Chloride 104 (98-107) mmol/L Carbon Dioxide 27 (22-30) mmol/L Anion Gap 8.8 (5-15) MEQ/L BUN 39 H (7-17) mg/dL Creatinine 1.91 H (0.52-1.04) mg/dL Estimated GFR 27.9 ML/MIN Hemoglobin A1c 9.73 H (4.5-6.0) % Lactic Acid (0.4-2.0) Calcium 8.5 (8.4-10.2) mg/dL Magnesium 2.0 (1.6-2.3) mg/dL Total Bilirubin (0.2-1.3) mg/dL AST (14-36) U/L ALT (0-35) U/L Alkaline Phosphatase (38-126) U/L Serum Total Protein (6.3-8.2) g/dL Albumin (3.5-5.0) g/dL Ur Collection Type Urine Color (YELLOW) Urine Appearance (CLEAR) Urine pH (5-6) Ur Specific Lane (1.005-1.025) Urine Protein (Negative) Urine Ketones (NEGATIVE) Urine Blood (0-5) George/ul Urine Nitrite (NEGATIVE) Urine Bilirubin (NEGATIVE) Urine Urobilinogen (0-1) mg/dL Ur Leukocyte Esterase (NEGATIVE) Urine Microscopic RBC (0-2) /HPF Urine Microscopic WBC (0-5) /HPF Urine Bacteria (NEGATIVE) /HPF Urine Glucose (NEGATIVE) mg/dL Specimen Received Radiology Exams: Radiology Procedures Category Date Time Status CHEST 1 VIEW (PORTABLE) Routine Exams 08/14/17 20:16 Taken Renal Ultrasound [KIDNEY] [US] Routine Exams 08/15/17 Ordered Assessment/Plan (1) UTI (urinary tract infection) Current Visit: Yes Status: Acute Qualifiers: Assessment & Plan: continue zosyn pending cultures humera persists continue hydration monitor I/O has had less out but improved bp now suspect acute tubular necrosis due to the hypotension and sepsis check renal ultrasound rule out lesion or obstruction lovenox for ppx Code(s): N39.0 - URINARY TRACT INFECTION, SITE NOT SPECIFIED (2) Sepsis Current Visit: Yes Status: Acute (3) Acute kidney injury Current Visit: Yes Status: Acute Code(s): N17.9 - ACUTE KIDNEY FAILURE, UNSPECIFIED (4) Acute hypoxemic respiratory failure Current Visit: Yes Status: Acute Code(s): J96.01 - ACUTE RESPIRATORY FAILURE WITH HYPOXIA (5) COPD (chronic obstructive pulmonary disease) Current Visit: No Status: Chronic (6) Right rib fracture Current Visit: Yes Status: Acute Code(s): S22.31XA - FRACTURE OF ONE RIB, RIGHT SIDE, INIT FOR CLOS FX (7) Tobacco dependence Current Visit: Yes Status: Chronic Code(s): F17.200 - NICOTINE DEPENDENCE, UNSPECIFIED, UNCOMPLICATED (8) Coronary artery disease Current Visit: Yes Status: Chronic Code(s): I25.10 - ATHSCL HEART DISEASE OF [place] CORONARY ARTERY W/O ANG PCTRS (9) Type 1 diabetes mellitus Current Visit: Yes Status: Acute Qualifiers: Diabetes mellitus complication status: with hyperglycemia Qualified Code(s) : E10.65 - Type 1 diabetes mellitus with hyperglycemia
[2017-08-15] MEDS: xanAX 0.5 MG PO SCH ×2 (08:33→21:21)
[2017-08-15] MEDS: NEURONTIN 300 MG PO SCH ×3 (08:33→21:21)
[2017-08-15] MEDS: NovoLOG Insulin SQ PRN ×4 (08:34→22:53)
--- NOTE | 2017-08-15 08:37 | XRAY ---
Indication: Hypoxemia. Comparison: August 11, 2017. Portable chest again demonstrates COPD with new minimal bibasilar infiltrates versus atelectasis and tiny effusions. Query small patchy right midlung infiltrate. Heart is not enlarged and vascularity is normal.
[2017-08-15] MEDS: ULTRAM 50 MG PO PRN (08:40)
[2017-08-15] MEDS: Pepcid 20 MG PO SCH (08:41)
[2017-08-15] MEDS: SYNTHROID 25 MCG PO SCH (08:41)
[2017-08-15] MEDS: Nicoderm CQ 21 MG TOP SCH (08:42)
[2017-08-15] MEDS ORDERED: NON-FORMULARY ITEM (Ranitidine Hcl [Zantac] 300 MG) PO SCH (10:00)
--- NOTE | 2017-08-15 12:29 | XRAY ---
Indication: Acute kidney injury. Two-dimensional renal sonogram performed. Comparison: None Both kidneys normal in reniform shape with normal color perfusion. Right kidney measures 10.4 x 4.1 x 4.9 cm and the left measures 13.3 x 4.6 x 4.4 cm. 8 mm cortical cyst in the right upper pole. No solid renal mass, hydronephrosis, or perinephric fluid. Cortical medullary differentiation preserved without cortical thinning. Urinary bladder is empty with a Martins balloon catheter in situ. Impression: Small right renal cyst in a otherwise negative renal sonogram.
[2017-08-15] MEDS: NovoLOG Insulin SQ SCH ×2 (12:45→16:53)
[2017-08-15] MEDS: TYLENOL 325 MG PO PRN ×2 (16:09→22:53)
[2017-08-15] MEDS: Lantus Insulin SQ SCH (21:21)
[2017-08-15] MEDS: ENOXAPARIN SODIUM SQ SCH (21:21)
[2017-08-16] MEDS: Zosyn 3.375GM/100 Ml D5W 3.375 GM/100 ML IVPB IV SCH ×4 (00:32→18:08)
[2017-08-16] MEDS: Lactated Ringers 1,000 ML IV SCH (04:35)
[2017-08-16 06:21] LABS: BASOPHIL % 0.2 % (0.0-0.4); Basophil (Absolute #) 0.02 (0-0.4); Eosinophil % 4.1 % (0.00-5.0); Eosinophil (Absolute #) 0.41 (0-0.5); Granulocyte Absolute (ANC) 7.54 (1.4-6.9); Granulocytes % 76.4 % (36.0-66.0); Hematocrit 33.6 % (35-47); Hemoglobin 11.2 gm/dl (12.0-16.0); Lymphocyte (Absolute #) 1.01 (1.0-4.6); Lymphocytes % 10.2 % (24.0-44.0); Mean Cell Volume 90.6 fl (78-100); Mean Corpuscular Hgb Concent. 33.3 g/dl (32-36); Mean Platelet Volume 11.7 fl (6-9.5); Monocytes % 9.1 % (0.0-12.0); Platelet Count 137 K/mm3 (150-450); Red Blood Count 3.71 M/mm3 (4.1-5.4); Red Cell Distribution Width 15.7 % (11.5-14.0); White Blood Count 9.9 K/mm3 (4.0-10.5)
[2017-08-16 06:33] LABS: Mean Corpuscular Hemoglobin 30.1 pg (26-32)
[2017-08-16 06:36] LABS: ANION GAP 6.8 MEQ/L (5-15); Calcium 8.2 mg/dL (8.4-10.2); Creatinine 1 1.08 mg/dL (0.52-1.04)
[2017-08-16] MEDS: Nicoderm CQ 21 MG TOP SCH (07:51)
[2017-08-16] MEDS: NovoLOG Insulin SQ SCH ×3 (07:51→17:09)
[2017-08-16] MEDS: Pepcid 20 MG PO SCH (10:16)
[2017-08-16] MEDS: NEURONTIN 300 MG PO SCH ×3 (10:16→22:11)
[2017-08-16] MEDS: ULTRAM 50 MG PO PRN (10:16)
[2017-08-16] MEDS: xanAX 0.5 MG PO SCH ×2 (10:16→22:11)
[2017-08-16] MEDS: SYNTHROID 25 MCG PO SCH (10:16)
[2017-08-16] MEDS: NovoLOG Insulin SQ PRN ×2 (17:09→22:12)
[2017-08-16] MEDS: Lantus Insulin SQ SCH (22:11)
[2017-08-16] MEDS: ENOXAPARIN SODIUM SQ SCH (22:11)
[2017-08-17] MEDS: Zosyn 3.375GM/100 Ml D5W 3.375 GM/100 ML IVPB IV SCH ×2 (00:36→06:31)
[2017-08-17 06:03] LABS: Hematocrit 36.2 % (35-47); Mean Cell Volume 90.5 fl (78-100); Mean Corpuscular Hgb Concent. 33.1 g/dl (32-36); Mean Platelet Volume 10.9 fl (6-9.5); Platelet Count 185 K/mm3 (150-450); Red Cell Distribution Width 15.3 % (11.5-14.0); White Blood Count 9.9 K/mm3 (4.0-10.5)
[2017-08-17 06:20] LABS: ANION GAP 6.9 MEQ/L (5-15); BLOOD UREA NITROGEN 16 mg/dL (7-17); CHLORIDE 107 mmol/L (98-107); Calcium 8.5 mg/dL (8.4-10.2); Carbon Dioxide 31 mmol/L (22-30); Creatinine 1 0.89 mg/dL (0.52-1.04); Glucose 61 mg/dL (74-106); Potassium 3.4 mmol/L (3.5-5.1); SODIUM 141 mmol/L (137-145)
[2017-08-17 07:59] VITALS: BP 170/77; PULSE 75; O2SAT 90
[2017-08-17] MEDS: NovoLOG Insulin SQ SCH (07:59)
[2017-08-17] MEDS: Nicoderm CQ 21 MG TOP SCH (08:06)
[2017-08-17] MEDS: NEURONTIN 300 MG PO SCH (09:34)
[2017-08-17] MEDS: Pepcid 20 MG PO SCH (09:34)
[2017-08-17] MEDS: SYNTHROID 25 MCG PO SCH (09:34)
[2017-08-17] MEDS: xanAX 0.5 MG PO SCH (09:34)
--- NOTE | 2017-08-17 10:26 | PCM.DCORD ---
- Discharge Discharge Date: 08/17/17 Condition: Good Prescriptions: New Amoxicillin/Potassium Clav [Augmentin 875 mg (Amox Tr-K Clv 875-125 mg)] 1 each PO BID 7 Days #14 tablet Continue Pravastatin Sodium [Pravachol] 10 mg PO HS Levothyroxine Sodium 25 Mcg [Synthroid 25 Mcg] 25 mcg PO DAILY Insulin Glargine,Hum.rec.anlog [Lantus] 25 unit SQ HS Gabapentin 300 mg PO TID Carvedilol 3.125 mg [Coreg 3.125 MG] 3.125 mg PO BID Tramadol HCl 50 mg [Ultram 50 mg] 50 mg PO DAILY Ranitidine HCl [Zantac] 300 mg PO DAILY Alprazolam 0.5 mg [xanAX 0.5 MG] 1 tab PO BID cephALEXin [Cephalexin] 1 cap PO TID Sulfamethoxazole/Trimethoprim [Sulfamethoxazole-Tmp Ds Tablet] 1 tab PO BID Insulin Aspart [NovoLOG Insulin] 0 units SQ UD Follow up with: KERI ANTHONY [Primary Care Provider] - 1 Week
--- NOTE | 2017-08-21 14:13 | DS ---
DISCHARGE DIAGNOSES: 1) PNEUMONIA. 2) CHRONIC OBSTRUCTIVE PULMONARY DISEASE. 3) HISTORY OF RIB FRACTURE. 4) HYPOTENSION. 5) RENAL FAILURE. HOSPITAL COURSE: The patient is a 67 year-old white female who presented to the hospital apparently septic. We initially thought that the patient had urinary tract infection but the urine culture has come back negative. The patient had recent fall and rib fracture on the right side. She has chronic obstructive pulmonary disease and hypoxia. The x-rays showed the possibility of early pneumonia. The patient initially came in with a white blood cell count of 18,000. On IV Zosyn, the patient's white blood cell count came down to 9,900. She was essentially quite hypotensive which caused an issue with her renal insufficiency which has resolved. Her creatinine had risen to 2.08 which was new for her but is now down to 0.89. Her electrolytes are essentially normal. Her hemoglobin is 12.0, PLT count 185,000. The patient has been hypoxic and with chronic obstructive pulmonary disease she does qualify for home oxygen which we will send her home on 2 liters per nasal cannula. She will also now be on empiric Augmentin 875 mg twice a day for additional week to follow up with Dr. Arita, her regular doctor, here in the next coming week. She is to return to the hospital if she has any further problems in the interim.
== END 2017-08-17 11:15 | disposition home or self-care (01) | DRG 193 ==
LOC: MED SURG 14:29
PROVIDERS: ADMIT Family Medicine; ATTEND Family Medicine
DX: J18.9 Pneumonia, unspecified organism (principal); J96.01 Acute respiratory failure with hypoxia; N39.0 Urinary tract infection, site not specified; N17.9 Acute kidney failure, unspecified; S22.31XA Fracture of one rib, right side, initial encounter for closed fracture; J44.9 Chronic obstructive pulmonary disease, unspecified; I95.9 Hypotension, unspecified; E10.65 Type 1 diabetes mellitus with hyperglycemia; Z79.4 Long term (current) use of insulin; E78.00 Pure hypercholesterolemia, unspecified; I25.2 Old myocardial infarction; K21.9 Gastro-esophageal reflux disease without esophagitis; F41.9 Anxiety disorder, unspecified; F17.200 Nicotine dependence, unspecified, uncomplicated; I25.10 Atherosclerotic heart disease of native coronary artery without angina pectoris
CPT/HCPCS: 36415; 36600; 71045; 76770; 80048; 80053; 81000; 82375; 82803; 82947; 83036; 83605; 83735; 85025; 85027; 87040; 87086; 94760; J1650; J2543; A9270-GY

== ENCOUNTER 2017-10-14 09:56 | Observation (INO) | payer MEDICARE ==
[2017-10-14] MEDS ORDERED: Lactated Ringers 1,000 ML IV ONE (10:51)
[2017-10-14] MEDS ORDERED: Zofran 4 MG/2 ML VIAL IV PRN (11:02)
--- NOTE | 2017-10-14 11:18 | XRAY ---
Indication: Weakness. Comparison: August 14, 2017. Portable chest demonstrates mild worsening left base infiltrate/atelectasis. Stable COPD with blunting of both costophrenic angles. Heart is not enlarged. Bony thorax intact again with mild osteopenia and old right humeral neck fracture.
[2017-10-14] MEDS: Lactated Ringers 1,000 ML IV SCH ×4 (11:19→23:53)
[2017-10-14 11:26] LABS: BASOPHIL % 0.3 % (0.0-0.4); Basophil (Absolute #) 0.03 (0-0.4); Eosinophil % 0.2 % (0.00-5.0); Eosinophil (Absolute #) 0.02 (0-0.5); Granulocyte Absolute (ANC) 9.07 (1.4-6.9); Granulocytes % 80.7 % (36.0-66.0); Hematocrit 36.6 % (35-47); Hemoglobin 12.2 gm/dl (12.0-16.0); Lymphocyte (Absolute #) 1.23 (1.0-4.6); Mean Cell Volume 90.8 fl (78-100); Mean Corpuscular Hgb Concent. 33.3 g/dl (32-36); Mean Platelet Volume 11.1 fl (6-9.5); Monocyte (Absolute #) 0.87 (0.0-1.3); Monocytes % 7.8 % (0.0-12.0); Platelet Count 189 K/mm3 (150-450); Red Blood Count 4.03 M/mm3 (4.1-5.4); Red Cell Distribution Width 14.9 % (11.5-14.0); White Blood Count 11.2 K/mm3 (4.0-10.5)
[2017-10-14 11:28] LABS: A-aADO2 42; ABG HEMOGLOBIN 12.2; ABG POTASSIUM 3.5 (3.5-5.1); ABG SITE RIGHT RADIAL; ALLEN TEST OK? YES; ARTERIAL BLD GAS O2 SATURATION 88.5 % (95-100); ARTERIAL BLOOD GAS BASE EXCESS -4.7 (-2.0-2.0); ARTERIAL BLOOD GAS FIO2 21 %; ARTERIAL BLOOD GAS PCO2 44 mmHg (35-45); ARTERIAL BLOOD GAS PO2 53 mmHg (75-100); CARBOXYHEMOGLOBIN 5.3 % THgb (0.0-6.9); HCO3- 21.6 (22-28); HGB O2 SAT 83.8 g/dF (94-100); Lactic Acid 2.2 (0.4-2.0); paO2 pAO1 0.56
[2017-10-14 11:36] LABS: Mean Corpuscular Hemoglobin 30.2 pg (26-32)
[2017-10-14 11:44] LABS: ALBUMIN 2.5 g/dL (3.5-5.0); ANION GAP 12.1 MEQ/L (5-15); BILIRUBIN,TOTAL 0.2 mg/dL (0.2-1.3); Calcium 8.3 mg/dL (8.4-10.2); Creatinine 1 1.9 mg/dL (0.52-1.04); Potassium 3.6 mmol/L (3.5-5.1); Total Protein 5.3 g/dL (6.3-8.2)
[2017-10-14] MEDS: NovoLOG Insulin SQ PRN ×3 (12:12→22:05)
[2017-10-14] MEDS ORDERED: NORCO 5/325 MG PO PRN (12:49)
[2017-10-14] MEDS ORDERED: Coreg 3.125 MG PO SCH (13:00)
[2017-10-14 13:08] LABS: 027 TOX PROD PRESUMPTIVE NEGATIVE (NEGATIVE); TOXIGENIC C. DIFF ORG NEGATIVE (NEGATIVE)
[2017-10-14] MEDS: Protonix 40MG Tablet PO SCH (13:34)
[2017-10-14] MEDS: Nicoderm CQ 21 MG TOP SCH (13:34)
[2017-10-14] MEDS: ENOXAPARIN SODIUM SQ SCH (13:34)
[2017-10-14 15:19] LABS: Appearance CLEAR (CLEAR); Bacteria FEW /HPF (NEGATIVE); Bilirubin NEGATIVE (NEGATIVE); Blood 50 Ery/ul (0-5); Epithelial Cells FEW /HPF (FEW); Glucose 250 mg/dL (NEGATIVE); Ketones SMALL (NEGATIVE); Leukocyte Esterase TRACE (NEGATIVE); Nitrite NEGATIVE (NEGATIVE); Protein,Urine Dip 500 (Negative); Specific Gravity 1.015 (1.005-1.025); Urobilinogen NORMAL mg/dL (0-1)
[2017-10-14] MEDS: NEURONTIN 300 MG PO SCH ×2 (15:39→22:03)
[2017-10-14] MEDS: NovoLOG Insulin SQ SCH (17:18)
[2017-10-14] MEDS ORDERED: NON-FORMULARY ITEM (Pravastatin Sodium [Pravachol] 10 MG) PO SCH (22:00)
[2017-10-14] MEDS ORDERED: NON-FORMULARY ITEM (Ranitidine Hcl [Zantac] 300 MG) PO SCH (22:00)
[2017-10-14] MEDS: Pepcid 20 MG PO SCH (22:03)
[2017-10-14] MEDS: Zocor 10MG PO SCH (22:03)
[2017-10-14] MEDS: Coreg 3.125 MG PO SCH (22:03)
[2017-10-14] MEDS: xanAX 0.5 MG PO SCH (22:04)
[2017-10-14] MEDS: Lantus Insulin SQ SCH (22:05)
[2017-10-15 06:32] LABS: BASOPHIL % 0.2 % (0.0-0.4); Basophil (Absolute #) 0.02 (0-0.4); Eosinophil % 1.1 % (0.00-5.0); Granulocytes % 69.3 % (36.0-66.0); Hematocrit 35.6 % (35-47); Hemoglobin 11.8 gm/dl (12.0-16.0); Lymphocyte (Absolute #) 1.75 (1.0-4.6); Lymphocytes % 19.6 % (24.0-44.0); Mean Cell Volume 91.3 fl (78-100); Mean Corpuscular Hgb Concent. 33.1 g/dl (32-36); Mean Platelet Volume 11.3 fl (6-9.5); Monocyte (Absolute #) 0.88 (0.0-1.3); Monocytes % 9.8 % (0.0-12.0); Platelet Count 180 K/mm3 (150-450); Red Cell Distribution Width 15.1 % (11.5-14.0)
[2017-10-15 06:39] LABS: Mean Corpuscular Hemoglobin 30.2 pg (26-32)
[2017-10-15 06:43] LABS: ALBUMIN 2.3 g/dL (3.5-5.0); ALKALINE PHOSPHATASE 81 U/L (38-126); ANION GAP 7.6 MEQ/L (5-15); BILIRUBIN,TOTAL < 0.10 mg/dL (0.2-1.3); BLOOD UREA NITROGEN 30 mg/dL (7-17); CHLORIDE 108 mmol/L (98-107); Calcium 8.3 mg/dL (8.4-10.2); Carbon Dioxide 26 mmol/L (22-30); Creatinine 1 1.74 mg/dL (0.52-1.04); Glucose 65 mg/dL (74-106); Potassium 3.5 mmol/L (3.5-5.1); SGOT/AST 14 U/L (14-36); SGPT/ALT 9 U/L (0-35); SODIUM 138 mmol/L (137-145); Total Protein 4.9 g/dL (6.3-8.2)
[2017-10-15] MEDS: NovoLOG Insulin SQ SCH ×3 (07:25→16:40)
[2017-10-15] MEDS: ENOXAPARIN SODIUM SQ SCH (08:49)
[2017-10-15] MEDS: Lactated Ringers 1,000 ML IV SCH ×2 (08:49→19:32)
[2017-10-15] MEDS: Nicoderm CQ 21 MG TOP SCH (08:49)
[2017-10-15] MEDS: Pepcid 20 MG PO SCH ×2 (08:50→21:32)
[2017-10-15] MEDS: Protonix 40MG Tablet PO SCH (08:51)
[2017-10-15] MEDS: xanAX 0.5 MG PO SCH ×2 (08:51→21:32)
[2017-10-15] MEDS: SYNTHROID 25 MCG PO SCH (08:51)
[2017-10-15] MEDS: Coreg 3.125 MG PO SCH ×2 (08:51→21:32)
[2017-10-15] MEDS: NEURONTIN 300 MG PO SCH ×3 (08:51→21:32)
[2017-10-15] MEDS: IMODIUM 2 MG PO PRN ×2 (10:04→15:15)
--- NOTE | 2017-10-15 13:01 | HP ---
HISTORY OF PRESENT ILLNESS: This is a 67 year-old patient of Dr. Mao Arita who was made a direct admission from the clinic. The patient reports that she has been having diarrhea. She has diarrhea at baseline but this has been worse. She reports that she has already went three times this morning. She denies any blood in her stool. She does not have any abdominal pain. No fever. No history of sick contact. She denies any travel. She has city water. She reports she eats out all the time. She reports usually she takes [id number] diarrhea pill. She had a colonoscopy here at [facility] and per the operative report it looks like it was from 2012 and she had one polyp and no other polyp. She denies ever being tested for celiac disease. She also has diabetes type 1 that is brittle and her nurses noted a low blood sugar last night. Of note, she did receive 5 units of regular insulin with her supper and then 11 more units with sliding scale at bedtime. The patient reports she is afraid to eat much because of the diarrhea so she does not have much of an appetite. REVIEW OF SYSTEMS: No chest pain. No shortness of breath. No abdominal pain. No fever. No lower extremity edema. No rashes. No dysuria. She reports she is urinating normally. PAST MEDICAL HISTORY: Diabetes mellitus type 1, chronic obstructive pulmonary disease, tobacco abuse. She reports she does not want to quit smoking. Chronic diarrhea. PAST SURGICAL HISTORY: None. MEDICATIONS: Please see the home medication list on the chart. ALLERGIES: NKDA. SOCIAL HISTORY: She is and lives with her . She smokes two packs per day of cigarettes. FAMILY HISTORY: Her mother is and of chronic obstructive pulmonary disease. Her father is and of cancer. PHYSICAL EXAMINATION: VITAL SIGNS: Temperature current 97.9F, temperature max 99.1F, heart rate 69 to 83, respiratory rate 17 to 18, blood pressure 122 to 148 over 58 to 70, weight 53.4 kg. Oxygen saturation 94 to 99% on room air to 4 liters nasal cannula. She is currently 99% on 4 liters. She reports she does not wear oxygen at home. GENERAL: The patient is a pleasant talkative lady sitting up in no acute distress. CVS: She has a regular rate and rhythm. No murmurs, gallops or rubs are appreciated. CHEST: Clear to auscultation bilaterally. No crackles or wheezes. ABDOMEN: Soft, nontender, nondistended with normal bowel sounds. EXTREMITIES: No clubbing, cyanosis or edema. SKIN: Warm, dry and intact. LABORATORY DATA AND TESTS: White blood cell count normal this morning at 9.0, hemoglobin 11.8. Creatinine 1.74. Protein 4.9, albumin 2.3. Clostridium difficile negative. Stool cultures in lab. Ova and parasites are ordered. Blood cultures in lab. Urine cultures no growth to date. ASSESSMENT AND PLAN: 1) ACUTE DIARRHEA WITH HISTORY OF CHRONIC DIARRHEA: Will check ova and parasites, stool culture since her Clostridium difficile was negative. I told her we could start medication to help slow her diarrhea so Imodium has been ordered. Will check for blood test to screen for celiac disease. She may need a colonoscopy in the future as her last one was in 2012. 2) DEHYDRATION: This is resolving with IV fluids. Her creatinine has improved. 3) ACUTE RENAL FAILURE: Again this is improving with IV fluids. 4) DIABETES MELLITUS TYPE 1: I am going to lower her short-acting dose of insulin with her meals as she is not eating as well and not give her any short-acting insulin at bedtime to try to avoid any further hypoglycemic episodes. 5) TOBACCOABUSE: The patient reports that she does not want to quit smoking.
[2017-10-15] MEDS: NovoLOG Insulin SQ PRN (16:40)
[2017-10-15] MEDS: Zocor 10MG PO SCH (21:32)
[2017-10-15] MEDS: Lantus Insulin SQ SCH (21:33)
[2017-10-16] MEDS: IMODIUM 2 MG PO PRN ×4 (04:10→16:49)
[2017-10-16] MEDS: Lactated Ringers 1,000 ML IV SCH (04:59)
[2017-10-16 06:29] LABS: ANION GAP 5.8 MEQ/L (5-15); BLOOD UREA NITROGEN 19 mg/dL (7-17); CHLORIDE 110 mmol/L (98-107); Calcium 8.2 mg/dL (8.4-10.2); Carbon Dioxide 29 mmol/L (22-30); Creatinine 1 0.93 mg/dL (0.52-1.04); Glucose 96 mg/dL (74-106); Potassium 3.4 mmol/L (3.5-5.1); SODIUM 142 mmol/L (137-145)
[2017-10-16] MEDS: NovoLOG Insulin SQ SCH ×3 (08:10→17:26)
[2017-10-16] MEDS: Coreg 3.125 MG PO SCH (08:11)
[2017-10-16 09:05] LABS: IGA QUANTITATIVE 360 mg/dL (70-400)
--- NOTE | 2017-10-16 09:38 | DS ---
DISCHARGE DIAGNOSES: 1) ACUTE DIARRHEA WITH HISTORY OF CHRONIC DIARRHEA. 2) DEHYDRATION. 3) ACUTE RENAL FAILURE. 4) DIABETES MELLITUS TYPE 1. 5) TOBACCO ABUSE. DISCHARGE PHYSICAL EXAMINATION: VITALS: Temperature current 97.7F, temperature max 98.7F, heart rate 71 to 84, respiratory rate 18 to 20, blood pressure 177 to 189 over 76 to 100, weight 53.4 kg. Oxygen saturation 94 to 97% on 3 liters nasal cannula. GENERAL: The patient is a pleasant talkative lady sitting up in bed in no acute distress. CVS: She has a regular rate and rhythm. No murmurs, gallops or rubs are appreciated. CHEST: Clear to auscultation bilaterally. No crackles or wheezes. ABDOMEN: Soft, nontender, nondistended with normal bowel sounds. EXTREMITIES: No clubbing, cyanosis or edema. SKIN: Warm, dry and intact. HOSPITAL COURSE: 1) ACUTE DIARRHEA WITH HISTORY OF CHRONIC DIARRHEA: She reports this improved with Imodium. She would like a prescription for this called in as she states that what we are giving her here in the hospital seems different than the Imodium that she is buying [id number]. She reports two loose stools but more manageable and she would like to go home. She reports she is drinking fluids well. She has blood work to screen for celiac disease, sent off a stool culture. An ova and parasite is in lab. Her Clostridium difficile was negative. She had a colonoscopy that was reviewed from 2012 that had a polyp. She may benefit from repeat colonoscopy as an outpatient. 2) DEHYDRATION: This resolved with IV fluids. Her creatinine was within normal limits at the time of discharge. 3) ACUTE RENAL FAILURE: Again this resolved with IV fluids and her creatinine was within normal limits at the time of discharge. 4) DIABETES MELLITUS TYPE 1. She had one episode of hypoglycemia when she was given a fairly amount of short-acting insulin with a sliding scale right before bedtime. This was held last night and she did not have any more hypoglycemic episodes. She usually manages her diabetes at home and states she plans to continue to follow up with her primary care doctor concerning this. 5) TOBACCO ABUSE: She reports that she does not plan on quitting smoking. 6) CHRONIC OBSTRUCTIVE PULMONARY DISEASE WITH HYPOXIA: She qualified for home oxygen in the past and took it back but plans to use it this time so an order was rewritten for home oxygen evaluation and the warehouse team member is aware of this and plans to work with RT to get this set up for the patient. DISPOSITION: The patient was discharged to home in fair condition. She may resume her home medications including Imodium. Follow up with Dr. Arita next week.
[2017-10-16] MEDS: Protonix 40MG Tablet PO SCH (09:42)
[2017-10-16] MEDS: Pepcid 20 MG PO SCH (09:42)
[2017-10-16] MEDS: SYNTHROID 25 MCG PO SCH (09:42)
[2017-10-16] MEDS: NEURONTIN 300 MG PO SCH ×2 (09:42→15:24)
[2017-10-16] MEDS: xanAX 0.5 MG PO SCH (09:43)
[2017-10-16] MEDS: Nicoderm CQ 21 MG TOP SCH (09:43)
[2017-10-16] MEDS: ENOXAPARIN SODIUM SQ SCH (09:43)
[2017-10-16 11:20] VITALS: PULSE 88; O2SAT 97
[2017-10-16] MEDS: NovoLOG Insulin SQ PRN ×2 (12:02→17:26)
[2017-10-16 12:34] LABS: T-TRANSGLUTAMINASE IGA <0.5 U/mL (0.0-14.9)
[2017-10-16 16:09] VITALS: BP 190/89
[2017-10-16 16:21] LABS: Source: Feces
== END 2017-10-16 18:25 | disposition home or self-care (01) ==
LOC: MED SURG 10:02
PROVIDERS: ADMIT Family Medicine; ATTEND Family Medicine
DX: R19.7 Diarrhea, unspecified (principal); E86.0 Dehydration; N17.9 Acute kidney failure, unspecified; E10.40 Type 1 diabetes mellitus with diabetic neuropathy, unspecified; Z79.4 Long term (current) use of insulin; Z72.0 Tobacco use; J44.9 Chronic obstructive pulmonary disease, unspecified; R09.02 Hypoxemia; E03.9 Hypothyroidism, unspecified; F41.9 Anxiety disorder, unspecified; I10 Essential (primary) hypertension; R25.1 Tremor, unspecified; M51.36 Other intervertebral disc degeneration, lumbar region; M81.0 Age-related osteoporosis without current pathological fracture; I25.10 Atherosclerotic heart disease of native coronary artery without angina pectoris; M62.81 Muscle weakness (generalized); I73.9 Peripheral vascular disease, unspecified
CPT/HCPCS: 36415; 36600; 71045; 80048; 80053; 81000; 82375; 82784; 82803; 83516; 83605; 83735; 84134; 85025; 87040; 87045; 87046; 87086; 87177; 87209; 87335; 87493; 93005; 93268; 94760; J1650; A9270-GY; G0378

== ENCOUNTER 2017-11-27 14:30 | Observation (INO) | payer MEDICARE ==
[2017-11-27 15:27] LABS: Lactic Acid 1.8 (0.4-2.0); VBG BASE EXCESS 0.6 (-2.0-2.0); VBG CARBOXYHEMOGLOBIN 4.8 % T HGB (0.0-6.9); VBG HCO3- 27.8 meq/L (22-28); VBG HEMOGLOBIN 14.3; VBG O2 SATURATION 73.1 (95-100); VBG POTASSIUM 4.1 (3.5-5.1); VBG pH 7.32 (7.32-7.42)
[2017-11-27] MEDS ORDERED: NovoLOG Insulin SQ PRN (15:30)
[2017-11-27 16:06] LABS: BASOPHIL % 0.3 % (0.0-0.4); Basophil (Absolute #) 0.03 (0-0.4); Eosinophil % 0.2 % (0.00-5.0); Eosinophil (Absolute #) 0.02 (0-0.5); Granulocyte Absolute (ANC) 6.71 (1.4-6.9); Granulocytes % 75.9 % (36.0-66.0); Hematocrit 42.7 % (35-47); Hemoglobin 14.1 gm/dl (12.0-16.0); Lymphocyte (Absolute #) 1.49 (1.0-4.6); Lymphocytes % 16.8 % (24.0-44.0); Mean Cell Volume 90.5 fl (78-100); Mean Corpuscular Hemoglobin 29.9 pg (26-32); Mean Platelet Volume 11.6 fl (6-9.5); Monocytes % 6.8 % (0.0-12.0); Platelet Count 208 K/mm3 (150-450); Red Blood Count 4.72 M/mm3 (4.1-5.4); Red Cell Distribution Width 14.7 % (11.5-14.0); White Blood Count 8.9 K/mm3 (4.0-10.5)
[2017-11-27 16:27] LABS: ALBUMIN 3.2 g/dL (3.5-5.0); ANION GAP 14.9 MEQ/L (5-15); BILIRUBIN,TOTAL 0.3 mg/dL (0.2-1.3); Calcium 9.6 mg/dL (8.4-10.2); Creatinine 1 1.26 mg/dL (0.52-1.04); Potassium 3.7 mmol/L (3.5-5.1); Total Protein 6.2 g/dL (6.3-8.2)
--- NOTE | 2017-11-27 16:31 | XRAY ---
Indication: Short of breath 3 days. Comparison: October 14, 2017. PA/lateral chest remains hyperinflated with interval worsening moderate left base infiltrate/atelectasis/effusion. Remaining heart and right lung unremarkable. Bony thorax again demonstrates osteopenia, old right humeral neck fracture, old T7 compression fracture, and old right rib fractures.
[2017-11-27] MEDS: Lactated Ringers 1,000 ML IV SCH ×3 (16:51→19:04)
[2017-11-27] MEDS: Nicoderm CQ 21 MG TOP SCH (16:51)
[2017-11-27] MEDS ORDERED: ULTRAM 50 MG PO PRN (17:18)
[2017-11-27] MEDS: DUONEB 0.5-3 MG/3 ml Neb IH SCH (19:49)
[2017-11-27 20:32] LABS: Appearance CLEAR (CLEAR); Bilirubin NEGATIVE (NEGATIVE); Blood NEGATIVE Ery/ul (0-5); Glucose 1000 mg/dL (NEGATIVE); Ketones MODERATE (NEGATIVE); Leukocyte Esterase NEGATIVE (NEGATIVE); Nitrite NEGATIVE (NEGATIVE); Protein,Urine Dip 100 (Negative); Specific Gravity 1.015 (1.005-1.025); Urobilinogen NORMAL mg/dL (0-1)
[2017-11-27 20:33] LABS: Epithelial Cells RARE /HPF (FEW); Hyaline Casts 0-2 /LPF (0-2); WBC 0-2 /HPF (0-5)
[2017-11-27] MEDS ORDERED: NON-FORMULARY ITEM (Ranitidine Hcl [Zantac] 300 MG) PO SCH (22:00)
[2017-11-27] MEDS ORDERED: Lantus Insulin SQ SCH (22:00)
[2017-11-27] MEDS ORDERED: NON-FORMULARY ITEM (Pravastatin Sodium [Pravachol] 10 MG) PO SCH (22:00)
[2017-11-27] MEDS: Pepcid 20 MG PO SCH (23:52)
[2017-11-27] MEDS: Zocor 10MG PO SCH (23:53)
[2017-11-27] MEDS: Coreg 3.125 MG PO SCH (23:53)
[2017-11-27] MEDS: NEURONTIN 300 MG PO SCH (23:54)
[2017-11-28] MEDS: xanAX 0.5 MG PO SCH ×3 (00:11→21:12)
[2017-11-28] MEDS: DUONEB 0.5-3 MG/3 ml Neb IH SCH ×4 (01:05→19:03)
[2017-11-28] MEDS: Lactated Ringers 1,000 ML IV SCH ×2 (05:23→17:52)
--- NOTE | 2017-11-28 08:01 | PCM.HP ---
History of Present Illness - Chief Complaint Chief Complaint: Hypoxia, hyperglycemia Date: 11/28/17 History of Present Illness: is a 67 year old female. with weakness and shortness of breath at home and sugars running in the 500's for 3 days despite using her insulin. she presented to the office yesterday had to be put in the car by her and wheeled in wheelchair into the office as she was too weak to stand her oxygen level was 86% on room air in the office visit as she did not wear her oxygen in> Shedid say she was wearing it at home. She is taking her insulin she has shortness of breath and continues to smoke. Today she is feeling better after the fluids and oxygen and food. She is still having high sugars and feeling weak but did walk a little to the bathroom last night. Medications & Allergies Home Medications: Home Medication List Gabapentin 600 mg PO TID 02/27/17 [History Confirmed 11/27/17] Insulin Glargine,Hum.rec.anlog [Lantus] 25 unit SQ HS 02/27/17 [History Confirmed 11/27/17] Levothyroxine Sodium 25 Mcg [Synthroid 25 Mcg] 25 mcg PO DAILY 02/27/17 [ History Confirmed 11/27/17] Pravastatin Sodium [Pravachol] 10 mg PO HS 02/27/17 [History Confirmed 11/27/17] Carvedilol 3.125 mg [Coreg 3.125 MG] 3.125 mg PO BID 07/19/17 [History Confirmed 11/27/17] Ranitidine HCl [Zantac] 300 mg PO BID 07/19/17 [History Confirmed 11/27/17] Tramadol HCl 50 mg [Ultram 50 mg] 50 mg PO QAM 07/19/17 [History Confirmed 11/27/17] Alprazolam 0.5 mg [xanAX 0.5 MG] 1 tab PO BID 08/14/17 [History Confirmed 11/27/17] Insulin Aspart [NovoLOG Insulin] 0 units SQ UD 08/14/17 [History Confirmed 09/08] Amlodipine Besylate 5 mg PO DAILY 11/27/17 [History Confirmed 11/27/17] Duloxetine HCl 60 mg PO DAILY 11/27/17 [History Confirmed 11/27/17] Allergies/Adverse Reactions: Allergies Allergy/AdvReac Type Severity Reaction Status Date / Time No Known Drug Allergies Allergy Verified 08/11/17 14:26 - Past Medical History Past Medical History: Yes Neurological History: No Pertinent History ENT History: Cataracts Cardiac History: High Cholesterol, Myocardial Infarction ([place]) Respiratory History: COPD Endocrine Medical History: Diabetes Type I Musculoskelatal History: Degenerative Disk Disease GI Medical History: GERD History: No Pertinent History Pyscho-Social History: Anxiety Reproductive Disorders: Cervical Cancer Comment: chronic back pain - Female History Are you now?: No - Past Surgical History Past Surgical History: Yes Neuro Surgical History: No Pertinent History Cardiac History: Cardiac Catheterization, Cardiac Stent Respiratory Surgery: No Pertinent History GI Surgical History: Appendectomy, Cholecystectomy Genitourinary Surgical Hx: No Pertinent History Musculskeletal Surgical Hx: Orthopedic Surgery Female Surgical History: Hysterectomy Other Surgical History: RIGHT HIP SURGERY ball placed, BACK SURGERY -unknown - Social History Smoking Status: Current every day smoker How long have you smoked: 56 years Exposure to second hand smoke: Yes Alcohol: None Drug Use: none - Physical Exam Vital Signs: Vital Signs - 24 hr Temp Pulse Resp BP Pulse Ox 11/28/17 04:00 98.7 F 79 16 148/67 97 11/28/17 01:05 78 13 92 L 11/28/17 00:00 20 11/27/17 23:49 99.0 F 85 18 141/80 99 11/27/17 20:00 98.0 F 82 20 168/72 98 11/27/17 19:51 81 20 94 L 11/27/17 16:03 97.7 F 83 22 122/60 87 L 11/27/17 15:19 97.7 F 83 122/60 92 L Oxygen-Last 24 hours O2 Percentage 3 Liters = 32% O2 Percentage 3 Liters = 32% O2 Percentage 3 Liters = 32% O2 Percentage 3 Liters = 32% General Appearance: no apparent distress, alert, thin Neurologic Exam: alert, oriented x 3, cooperative, normal mood/affect, nml cerebellar function, nml station & gait, sensation nml, No motor deficits Eye Exam: PERRL/EOMI, eyes nml inspection Ears, Nose, Throat Exam: normal ENT inspection, TMs normal, pharynx normal, moist mucous membranes Neck Exam: normal inspection, non-tender, supple, full range of motion Respiratory Exam: normal breath sounds, lungs clear, No respiratory distress Cardiovascular Exam: regular rate/rhythm, normal heart sounds, normal peripheral pulses Gastrointestinal/Abdomen Exam: soft, normal bowel sounds, No tenderness, No mass Back Exam: normal inspection, normal range of motion, No CVA tenderness, No vertebral tenderness Extremity Exam: normal inspection, normal range of motion, pelvis stable Skin Exam: normal color, warm, dry, No rash Lymphatic Exam: No adenopathy Results - Labs Lab/Micro Results: Accuchecks Date 11/27/17 Time 22:00 Accucheck Value: 471 Accucheck Value: 349 Lab Results-Last 24 Hours 11/27/17 11/27/17 11/27/17 Range/Units 15:15 15:15 15:27 WBC 8.9 (4.0-10.5) K/mm3 RBC 4.72 (4.1-5.4) M/mm3 Hgb 14.1 (12.0-16.0) gm/dl Hct 42.7 (35-47) % MCV 90.5 (78-100) fl MCH 29.9 (26-32) pg MCHC 33.0 (32-36) g/dl RDW 14.7 H (11.5-14.0) % Plt Count 208 (150-450) K/mm3 MPV 11.6 H (6-9.5) fl Gran % 75.9 H (36.0-66.0) % Eos # (Auto) 0.02 (0-0.5) Absolute Lymphs (auto) 1.49 (1.0-4.6) Absolute Monos (auto) 0.60 (0.0-1.3) Lymphocytes % 16.8 L (24.0-44.0) % Monocytes % 6.8 (0.0-12.0) % Eosinophils % 0.2 (0.00-5.0) % Basophils % 0.3 (0.0-0.4) % Absolute Granulocytes 6.71 (1.4-6.9) Basophils # 0.03 (0-0.4) pO2/FiO2 Ratio 21.0 % VBG pH 7.32 (7.32-7.42) VBG pCO2 at Pat Temp 54 (42-55) mm/Hg VBG pO2 at Pat Temp 37 (25-40) mm/Hg VBG HCO3 27.8 (22-28) meq/L VBG O2 Sat (Ward) 73.1 L (95-100) VBG Base Excess 0.6 (-2.0-2.0) VBG Hemoglobin 14.3 VBG Carboxyhemoglobin 4.8 (0.0-6.9) % T HGB POC Potassium 4.1 (3.5-5.1) Sodium 137 (137-145) mmol/L Potassium 3.7 (3.5-5.1) mmol/L Chloride 98 (98-107) mmol/L Carbon Dioxide 28 (22-30) mmol/L Anion Gap 14.9 (5-15) MEQ/L BUN 25 H (7-17) mg/dL Creatinine 1.26 H (0.52-1.04) mg/dL Estimated GFR 45.0 ML/MIN Glucose 349 H (74-106) mg/dL Hemoglobin A1c (4.5-6.0) % Lactic Acid 1.8 (0.4-2.0) Calcium 9.6 (8.4-10.2) mg/dL Magnesium 1.8 (1.6-2.3) mg/dL Total Bilirubin 0.30 (0.2-1.3) mg/dL AST 13 L (14-36) U/L ALT 13 (0-35) U/L Alkaline Phosphatase 115 (38-126) U/L Serum Total Protein 6.2 L (6.3-8.2) g/dL Albumin 3.2 L (3.5-5.0) g/dL Ur Collection Type Urine Color (YELLOW) Urine Appearance (CLEAR) Urine pH (5-6) Ur Specific [place] (1.005-1.025) Urine Protein (Negative) Urine Ketones (NEGATIVE) Urine Blood (0-5) George/ul Urine Nitrite (NEGATIVE) Urine Bilirubin (NEGATIVE) Urine Urobilinogen (0-1) mg/dL Ur Leukocyte Esterase (NEGATIVE) Urine Microscopic WBC (0-5) /HPF Ur Epithelial Cells (FEW) /HPF Hyaline Casts (0-2) /LPF Urine Culture Reflexed (NO) Urine Glucose (NEGATIVE) mg/dL Specimen Received 09/06/18 09/06/18 Range/Units 19:25 Unknown WBC (4.0-10.5) K/mm3 RBC (4.1-5.4) M/mm3 Hgb (12.0-16.0) gm/dl Hct (35-47) % MCV (78-100) fl MCH (26-32) pg MCHC (32-36) g/dl RDW (11.5-14.0) % Plt Count (150-450) K/mm3 MPV (6-9.5) fl Gran % (36.0-66.0) % Eos # (Auto) (0-0.5) Absolute Lymphs (auto) (1.0-4.6) Absolute Monos (auto) (0.0-1.3) Lymphocytes % (24.0-44.0) % Monocytes % (0.0-12.0) % Eosinophils % (0.00-5.0) % Basophils % (0.0-0.4) % Absolute Granulocytes (1.4-6.9) Basophils # (0-0.4) pO2/FiO2 Ratio % VBG pH (7.32-7.42) VBG pCO2 at Pat Temp (42-55) mm/Hg VBG pO2 at Pat Temp (25-40) mm/Hg VBG HCO3 (22-28) meq/L VBG O2 Sat (Ward) (95-100) VBG Base Excess (-2.0-2.0) VBG Hemoglobin VBG Carboxyhemoglobin (0.0-6.9) % T HGB POC Potassium (3.5-5.1) Sodium (137-145) mmol/L Potassium (3.5-5.1) mmol/L Chloride (98-107) mmol/L Carbon Dioxide (22-30) mmol/L Anion Gap (5-15) MEQ/L BUN (7-17) mg/dL Creatinine (0.52-1.04) mg/dL Estimated GFR ML/MIN Glucose (74-106) mg/dL Hemoglobin A1c 9.03 H (4.5-6.0) % Lactic Acid (0.4-2.0) Calcium (8.4-10.2) mg/dL Magnesium (1.6-2.3) mg/dL Total Bilirubin (0.2-1.3) mg/dL AST (14-36) U/L ALT (0-35) U/L Alkaline Phosphatase (38-126) U/L Serum Total Protein (6.3-8.2) g/dL Albumin (3.5-5.0) g/dL Ur Collection Type CCMS Urine Color YELLOW (YELLOW) Urine Appearance CLEAR (CLEAR) Urine pH 6.0 (5-6) Ur Specific [place] 1.015 (1.005-1.025) Urine Protein 100 (Negative) Urine Ketones MODERATE (NEGATIVE) Urine Blood NEGATIVE (0-5) George/ul Urine Nitrite NEGATIVE (NEGATIVE) Urine Bilirubin NEGATIVE (NEGATIVE) Urine Urobilinogen NORMAL (0-1) mg/dL Ur Leukocyte Esterase NEGATIVE (NEGATIVE) Urine Microscopic WBC 0-2 (0-5) /HPF Ur Epithelial Cells RARE (FEW) /HPF Hyaline Casts 0-2 (0-2) /LPF Urine Culture Reflexed NO (NO) Urine Glucose 1000 (NEGATIVE) mg/dL Specimen Received [id number] Accuchecks Date 11/27/17 Time 22:00 Accucheck Value: 471 Accucheck Value: 349 - Radiology Impressions Radiology Exams & Impressions: Radiology Procedures Category Date Time Status CHEST 2 VIEWS (PA AND LAT) Routine Exams 11/27/17 15:30 Completed - Other Procedures and Tests Respiratory Therapy 11/27/17 19:51 Peak Expiratory Flow Rate ONCE 11/28/17 01:08 Oxygen NASAL CANNULA 3 lpm Respiratory Therapy Assessment DAILY Assessment/Plan (1) Hypoxia Current Visit: Yes Status: Acute Onset Date: ~11/27/17 Assessment & Plan: improved on O2 it would be good to check her home oxygen equipement to be sure it is functioning properly. she needs to quit smoking and is aware but not prepared to quit her sugars are slow to respond this time to the insulin she has history of very brittle control of her type 1 and is sensitive to the insulin will add prandial 5 Units and increase to moderat dose sliding scale with the 25 units of lantus Code(s): R09.02 - HYPOXEMIA (2) COPD (chronic obstructive pulmonary disease) Current Visit: Yes Status: Chronic (3) Coronary artery disease Current Visit: Yes Status: Chronic Code(s): I25.10 - ATHSCL HEART DISEASE OF [place] CORONARY ARTERY W/O ANG PCTRS (4) Tobacco dependence Current Visit: Yes Status: Chronic Code(s): F17.200 - NICOTINE DEPENDENCE, UNSPECIFIED, UNCOMPLICATED (5) Type 1 diabetes mellitus Current Visit: Yes Status: Chronic Onset Date: ~08/14/17 Qualifiers: Diabetes mellitus complication status: with hyperglycemia Qualified Code(s) : E10.65 - Type 1 diabetes mellitus with hyperglycemia (6) Weakness Current Visit: Yes Status: Resolved Onset Date: ~10/14/17 Code(s): R53.1 - WEAKNESS
[2017-11-28] MEDS ORDERED: Lantus Insulin SQ SCH ×2 (10:00→22:00)
[2017-11-28] MEDS: NEURONTIN 300 MG PO SCH ×3 (11:39→21:12)
[2017-11-28] MEDS: Pepcid 20 MG PO SCH ×2 (11:39→21:12)
[2017-11-28] MEDS: Cymbalta 30 MG Capsule PO SCH (11:39)
[2017-11-28] MEDS: SYNTHROID 25 MCG PO SCH (11:39)
[2017-11-28] MEDS: Coreg 3.125 MG PO SCH ×2 (11:39→21:12)
[2017-11-28] MEDS: NovoLOG Insulin SQ PRN ×3 (11:46→21:13)
[2017-11-28] MEDS: NovoLOG Insulin SQ SCH ×2 (11:47→17:55)
[2017-11-28] MEDS: ENOXAPARIN SODIUM SQ SCH (11:47)
[2017-11-28 12:19] LABS: ANION GAP 7.2 MEQ/L (5-15); BLOOD UREA NITROGEN 19 mg/dL (7-17); CHLORIDE 102 mmol/L (98-107); Calcium 8.6 mg/dL (8.4-10.2); Carbon Dioxide 33 mmol/L (22-30); Glucose 318 mg/dL (74-106); Potassium 3.3 mmol/L (3.5-5.1); SODIUM 140 mmol/L (137-145)
[2017-11-28] MEDS: Nicoderm CQ 21 MG TOP SCH (17:55)
[2017-11-28] MEDS ORDERED: DUONEB 0.5-3 MG/3 ml Neb IH PRN (19:10)
[2017-11-28] MEDS: Zocor 10MG PO SCH (21:14)
[2017-11-29] MEDS: Lactated Ringers 1,000 ML IV SCH (05:08)
[2017-11-29 07:52] VITALS: BP 161/76
[2017-11-29 08:44] VITALS: PULSE 70; O2SAT 97
[2017-11-29] MEDS: NovoLOG Insulin SQ SCH (08:45)
[2017-11-29] MEDS: xanAX 0.5 MG PO SCH (09:43)
[2017-11-29] MEDS: Cymbalta 30 MG Capsule PO SCH (09:43)
[2017-11-29] MEDS: ENOXAPARIN SODIUM SQ SCH (09:43)
[2017-11-29] MEDS: Pepcid 20 MG PO SCH (09:43)
[2017-11-29] MEDS: SYNTHROID 25 MCG PO SCH (09:43)
[2017-11-29] MEDS: Coreg 3.125 MG PO SCH (09:43)
[2017-11-29] MEDS: NEURONTIN 300 MG PO SCH (09:43)
[2017-11-29] MEDS ORDERED: Klor Con 10 MEQ PO ONE (10:15)
--- NOTE | 2017-11-29 10:15 | PCM.DCORD ---
- Discharge Discharge Date: 11/29/17 Disposition: Home, Self-Care Condition: Good Prescriptions: Continue Pravastatin Sodium [Pravachol] 10 mg PO HS Levothyroxine Sodium 25 Mcg [Synthroid 25 Mcg] 25 mcg PO DAILY Insulin Glargine,Hum.rec.anlog [Lantus] 25 unit SQ HS Gabapentin 600 mg PO TID Carvedilol 3.125 mg [Coreg 3.125 MG] 3.125 mg PO BID Tramadol HCl 50 mg [Ultram 50 mg] 50 mg PO QAM Ranitidine HCl [Zantac] 300 mg PO BID Alprazolam 0.5 mg [xanAX 0.5 MG] 1 tab PO BID Insulin Aspart [NovoLOG Insulin] 0 units SQ UD Amlodipine Besylate 5 mg PO DAILY Duloxetine HCl 60 mg PO DAILY Follow up with: KERI ANTHONY [Primary Care Provider] - 1 Week
--- NOTE | 2017-12-01 09:59 | DS ---
DISCHARGE DIAGNOSES: 1) HYPOXIA DUE TO CHRONIC RESPIRATORY FAILURE AND CHRONIC OBSTRUCTIVE PULMONARY DISEASE. 2) HISTORY OF CORONARY ARTERY DISEASE. 3) DIABETES MELLITUS TYPE 1. 4) WEAKNESS. 5) TOBACCO ABUSE. DISCHARGE PHYSICAL EXAMINATION: VITALS: Temperature current 97.7F, temperature max 98.1F, heart rate 69 to 77, respiratory rate 18 to 19, blood pressure 161/76. Oxygen saturation 95 to 97% on 3 liters nasal cannula. GENERAL: The patient is pleasant talkative lady sitting up in bed in no acute distress. CVS: She has a regular rate and rhythm. No murmurs, gallops or rubs. CHEST: Clear to auscultation bilaterally. No crackles or wheeze. ABDOMEN: Soft, nontender, nondistended with normal bowel sounds. EXTREMITIES: No clubbing, cyanosis or edema. SKIN: Warm, dry and intact. HOSPITAL COURSE: 1) HYPOXIA DUE TO CHRONIC RESPIRATORY FAILURE AND CHRONIC OBSTRUCTIVE PULMONARY DISEASE: The patient knows that she needs to quit smoking, will continue with her home oxygen. 2) HISTORY OF CORONARY ARTERY DISEASE: Continue with her home medications. 3) DIABETES MELLITUS TYPE 1: She continues to be a brittle diabetic, will continue with her home doses of insulin and then follow up with Dr. Mao Arita for her care. 4) GENERALIZED WEAKNESS: She reports she has been able to ambulate in her room without any problems. DISCHARGE MEDICATIONS: Please see the discharge order. FOLLOW UP: She is to follow up with her primary care doctor, Dr. Mao Arita. DISPOSITION: The patient was discharged home in fair condition.
== END 2017-11-29 11:30 | disposition home or self-care (01) ==
LOC: MED SURG 14:49
PROVIDERS: ADMIT Family Medicine; ATTEND Family Medicine
DX: J96.11 Chronic respiratory failure with hypoxia (principal); J44.9 Chronic obstructive pulmonary disease, unspecified; I25.10 Atherosclerotic heart disease of native coronary artery without angina pectoris; E10.65 Type 1 diabetes mellitus with hyperglycemia; R53.1 Weakness; F17.200 Nicotine dependence, unspecified, uncomplicated; Z79.899 Other long term (current) drug therapy; E78.00 Pure hypercholesterolemia, unspecified; I25.2 Old myocardial infarction; K21.9 Gastro-esophageal reflux disease without esophagitis; F41.9 Anxiety disorder, unspecified; Z85.41 Personal history of malignant neoplasm of cervix uteri
CPT/HCPCS: 36415; 71046; 80048; 80053; 81000; 82805; 82962; 83036; 83605; 83735; 84443; 85025; 90686; 93268; 94150; 94640; 94760; J1650; A9270-GY; G0378

== ENCOUNTER 2017-12-16 19:08 | Inpatient (IN) | payer MEDICARE ==
[2017-12-16] MEDS ORDERED: Sodium Chloride 0.9% 1000 ML 1,000 ML ONE (19:27)
[2017-12-16] MEDS ORDERED: Sodium Chloride 0.9% 1000 ML 1,000 ML IV STA (19:46)
[2017-12-16 20:11] LABS: VBG BASE EXCESS 0.7 (-2.0-2.0); VBG HCO3- 29.1 meq/L (22-28); VBG HEMOGLOBIN 14.8; VBG O2 SATURATION 66.7 (95-100); VBG POTASSIUM 3.5 (3.5-5.1); VBG pH 7.28 (7.32-7.42)
[2017-12-16 20:16] LABS: Granulocyte Absolute (ANC) 8.41 (1.4-6.9); Hematocrit 44.4 % (35-47); Hemoglobin 14.4 gm/dl (12.0-16.0); Mean Cell Volume 90.4 fl (78-100); Mean Corpuscular Hemoglobin 29.3 pg (26-32); Mean Corpuscular Hgb Concent. 32.4 g/dl (32-36); Mean Platelet Volume 11.8 fl (6-9.5); Platelet Count 155 K/mm3 (150-450); Red Blood Count 4.91 M/mm3 (4.1-5.4); Red Cell Distribution Width 15.7 % (11.5-14.0)
[2017-12-16 20:35] LABS: Appearance SLIGHTLY CLOUDY (CLEAR); Bilirubin NEGATIVE (NEGATIVE); Blood TRACE NON-HEM Ery/ul (0-5); Glucose 1000 mg/dL (NEGATIVE); Ketones MODERATE (NEGATIVE); Leukocyte Esterase NEGATIVE (NEGATIVE); Nitrite NEGATIVE (NEGATIVE); Protein,Urine Dip 500 (Negative); Urobilinogen NORMAL mg/dL (0-1)
[2017-12-16 20:36] LABS: Amourphous Crystal MODERATE /HPF (NEGATIVE); Bacteria FEW /HPF (NEGATIVE); Epithelial Cells FEW /HPF (FEW); Mucus SLIGHT /HPF (NEGATIVE); RBC 0-2 /HPF (0-2)
[2017-12-16 20:39] LABS: ANION GAP 12.7 MEQ/L (5-15); BILIRUBIN,TOTAL 0.4 mg/dL (0.2-1.3); Calcium 9.1 mg/dL (8.4-10.2); Creatinine 1 1.74 mg/dL (0.52-1.04); Potassium 3.3 mmol/L (3.5-5.1); Total Protein 6.2 g/dL (6.3-8.2)
[2017-12-16 20:49] LABS: ATYPICAL LYMPHS 3 %; BAND 2 % (0.0-2.0); Lymphocytes 12 % (24-44); Monocyte 4 % (0.0-12.0); Neutrophils 79 % (36.0-66.0); Total Cells Counted 100
[2017-12-16 20:50] LABS: Basophilic Stippling 1+; Platelet Estimate NORMAL (NORMAL)
[2017-12-16] MEDS ORDERED: NovoLIN R IV ONE (21:09)
[2017-12-16] MEDS ORDERED: NovoLIN R ONE (21:20)
[2017-12-16] MEDS ORDERED: Rocephin 1000 MG INJ IM STA (21:29)
[2017-12-16] MEDS ORDERED: Zithromax 500 MG/ 250 ML NaCl Premix 500 MG/250 ML IVPB IV STA (21:32)
[2017-12-16] MEDS ORDERED: BABY ASPIRIN 81 MG CHEW PO ONE (21:33)
[2017-12-16] MEDS ORDERED: BABY ASPIRIN 81 MG CHEW ONE (21:48)
[2017-12-16] MEDS ORDERED: Zithromax 500 MG/ 250 ML NaCl Premix 500 MG/250 ML IVPB IV ONE (21:48)
--- NOTE | 2017-12-16 22:31 | ERPHSYRPT ---
- History of Present Illness Time Seen by Provider: 12/16/17 19:30 Source: patient Exam Limitations: clinical condition Patient Subjective Stated Complaint: Pt arrives to ER via EMS from home with c/ o hyperglycemia. pt is GCS 14. States has not felt good all day. Pt is very vague with sx and is not forthcoming. Denies pain, N/V/D, cough. C/o generalized weakness and fatigue, dizziness and lightheadedness, SOB, dysuria. Pt confused at times during assessment but can be redirected to give correct answer. Triage Nursing Assessment: pt appears drowsy with delayed responses. Physician History: PATIENT WITH A HISTORY OF TYPE 2 DIABETES, HYPERTENSION, CORONARY ARTERY DISEASE , AND COPD, SPOUSE STATES PATIENT HAS BEEN LETHARGIC OVER THE PAST 2 DAYS WITH AN ELEVATED BLOOD GLUCOSE OF 600. HAS ASSOCIATED NONPRODUCTIVE COUGH. HAS POOR ORAL INTAKE, DENIES DYSPNEA, CHEST PAIN, NAUSEA, EMESIS OR DIARRHEA Timing/Duration: yesterday Severity: moderate Associated Symptoms: cough, other Allergies/Adverse Reactions: No Known Drug Allergies Allergy (Verified 12/16/17 19:22) Home Medications: Gabapentin 600 mg PO TID 02/27/17 [History] Insulin Glargine,Hum.rec.anlog [Lantus] 25 unit SQ HS 02/27/17 [History] Levothyroxine Sodium 25 Mcg [Synthroid 25 Mcg] 25 mcg PO DAILY 02/27/17 [ History] Pravastatin Sodium [Pravachol] 10 mg PO HS 02/27/17 [History] Carvedilol 3.125 mg [Coreg 3.125 MG] 3.125 mg PO BID 07/19/17 [History] Ranitidine HCl [Zantac] 300 mg PO BID 07/19/17 [History] Tramadol HCl 50 mg [Ultram 50 mg] 50 mg PO QAM 07/19/17 [History] Alprazolam 0.5 mg [xanAX 0.5 MG] 1 tab PO BID 08/14/17 [History] Insulin Aspart [NovoLOG Insulin] 0 units SQ UD 08/14/17 [History] Amlodipine Besylate 5 mg PO DAILY 11/27/17 [History] Duloxetine HCl 60 mg PO DAILY 11/27/17 [History] Hx Tetanus, Diphtheria Vaccination/Date Given: Yes Hx Influenza Vaccination/Date Given: Yes Hx Pneumococcal Vaccination/Date Given: Yes - Review of Systems Constitutional: Lethargy, Weakness, No Fever, No Chills Eyes: No Symptoms Ears, Nose, & Throat: No Symptoms Respiratory: No Symptoms, Cough, No Dyspnea Cardiac: No Symptoms, No Chest Pain, No Edema, No Syncope Abdominal/Gastrointestinal: No Symptoms, No Abdominal Pain, No Nausea, No Vomiting, No Diarrhea Genitourinary Symptoms: No Symptoms, No Dysuria Musculoskeletal: No Back Pain, No Neck Pain Skin: No Rash Neurological: Lethargy, No Dizziness, No Focal Weakness, No Sensory Changes Psychological: No Symptoms Endocrine: No Symptoms All Other Systems: Reviewed and Negative - Past Medical History Pertinent Past Medical History: Yes Neurological History: No Pertinent History ENT History: Cataracts Cardiac History: High Cholesterol, Myocardial Infarction (MD) Respiratory History: COPD Endocrine Medical History: Diabetes Type I Musculoskeletal History: Degenerative Disk Disease GI Medical History: GERD History: No Pertinent History Psycho-Social History: Anxiety Female Reproductive Disorders: Cervical Cancer Other Medical History: chronic back pain - Past Surgical History Past Surgical History: Yes Neuro Surgical History: No Pertinent History Cardiac: Cardiac Catheterization, Cardiac Stent Respiratory: No Pertinent History Gastrointestinal: Appendectomy, Cholecystectomy Genitourinary: No Pertinent History Musculoskeletal: Orthopedic Surgery Female Surgical History: Hysterectomy Other Surgical History: RIGHT HIP SURGERY ball placed, BACK SURGERY -unknown - Social History Smoking Status: Current every day smoker How long have you smoked: 56 years Exposure to second hand smoke: Yes Drug Use: none Patient Lives Alone: No - Female History Hx Now: No - Nursing Vital Signs Nursing Vital Signs: Initial Vital Signs Temperature 98.5 F 12/16/17 19:09 Pulse Rate 80 12/16/17 19:09 Respiratory Rate 20 12/16/17 19:09 Blood Pressure 132/60 12/16/17 19:09 - Physical Exam General Appearance: no apparent distress, lethargy (BUT AWAKES TO VERBAL STIMULI , ANSWERS APPROPRIATELY) Eye Exam: PERRL/EOMI, eyes nml inspection Ears, Nose, Throat Exam: normal ENT inspection, TMs normal, pharynx normal, moist mucous membranes Neck Exam: normal inspection, non-tender, supple, full range of motion Respiratory Exam: normal breath sounds, lungs clear, No respiratory distress Cardiovascular Exam: regular rate/rhythm, normal heart sounds, normal peripheral pulses Gastrointestinal/Abdomen Exam: soft, normal bowel sounds, No tenderness, No mass Back Exam: normal inspection, normal range of motion, No CVA tenderness, No vertebral tenderness Extremity Exam: normal inspection, normal range of motion, pelvis stable Neurologic Exam: alert, oriented x 3, cooperative, normal mood/affect, nml cerebellar function, nml station & gait, sensation nml, No motor deficits Skin Exam: normal color, warm, dry, No rash Lymphatic Exam: No adenopathy SpO2 Interpretation: normal SpO2: 95 Oxygen Delivery: Room Air - Course EKG Interpreted by Me: RATE, Sinus Rhythm, NORMAL AXIS, Non-specific ST Changes - Radiology Exams Chest X-ray Interpretation: Interpreted by me (MODERATE LEFT PLEURL EFFUSION VS CONSOLIDATION) - CT Exams Head CT Interpretation: Tele-radiologist Report, No/Intracranial Hemorrhag Ordered Tests: Active Orders 24 hr Category Date Time Status ACCUCHECK [Accucheck] STAT Care 12/16/17 22:25 Ordered Punch Finisher STAT Care 12/16/17 19:47 Active EKG-ER Only STAT Care 12/16/17 19:46 Active Oxygen-ED Only NASAL CANNULA 2 lpm Care 12/16/17 19:46 Active CHEST 1 VIEW (PORTABLE) Stat Exams 12/16/17 19:47 Taken HEAD WITHOUT CONTRAST [CT] Stat Exams 12/16/17 19:50 Taken BLOOD CULTURE Stat Lab 12/16/17 19:30 Received CBC W DIFF Stat Lab 12/16/17 20:13 Completed CMP Stat Lab 12/16/17 20:13 Completed CULTURE,URINE Stat Lab 12/16/17 20:13 Received Manual Differential NC Stat Lab 12/16/17 20:13 Completed NT PRO BNP Stat Lab 12/16/17 20:13 Completed TROPONIN Q3H Lab 12/16/17 20:13 Completed TROPONIN Q3H Lab 12/16/17 23:00 Ordered TROPONIN Q3H Lab 12/17/17 02:00 Ordered TROPONIN Q3H Lab 12/17/17 05:00 Ordered TROPONIN Q3H Lab 12/17/17 08:00 Ordered UA W/ MICROSCOPIC Stat Lab 12/16/17 20:13 Completed UA W/RFX UR CULTURE Stat Lab 12/16/17 22:05 Uncollected VENOUS BLOOD GAS Stat Lab 12/16/17 20:05 Completed Medication Summary Generic Name Dose Route Start Last Admin Trade Name Luis Angel PRN Reason Stop Dose Admin Ceftriaxone Sodium mg 12/16/17 21:29 Rocephin 1000 Mg Inj IM 12/16/17 21:30 STAT STA Azithromycin 500 mg in 250 mls @ 250 mls/hr 12/16/17 21:32 12/16/17 21:52 Zithromax 500 Mg/ 250 Ml Nacl Premix IV 12/16/17 22:31 250 mls/hr STAT STA 250 mls/hr Administration Discontinued Medications Generic Name Dose Route Start Last Admin Trade Name Luis Angel PRN Reason Stop Dose Admin Aspirin 324 mg 12/16/17 21:33 12/16/17 21:52 Baby Aspirin 81 Mg Chew PO 12/16/17 21:34 324 mg STAT ONE Administration Aspirin Confirm 12/16/17 21:48 Baby Aspirin 81 Mg Chew Administered 12/16/17 21:49 Dose 324 mg .ROUTE .STK-MED ONE Sodium Chloride Confirm 12/16/17 19:27 Sodium Chloride 0.9% 1000 Ml Administered 12/16/17 19:28 Dose 1,000 mls @ ud .ROUTE .STK-MED ONE Sodium Chloride 1,000 mls @ 500 mls/hr 12/16/17 19:46 12/16/17 20:26 Sodium Chloride 0.9% 1000 Ml IV 12/16/17 21:45 500 mls/hr .Q2H STA Administration Azithromycin Confirm 12/16/17 21:48 Zithromax 500 Mg/ 250 Ml Nacl Premix Administered 12/16/17 21:49 Dose 500 mg in 250 mls @ ud IV .STK-MED ONE Insulin Human Regular 4 unit 12/16/17 21:09 12/16/17 21:20 Novolin R IV 12/16/17 21:10 4 unit STAT ONE Administration Insulin Human Regular Confirm 12/16/17 21:20 Novolin R Administered 12/16/17 21:21 Dose 4 unit .ROUTE .STK-MED ONE Lab/Rad Data: Laboratory Result Diagrams 12/16/17 20:13 12/16/17 20:13 Laboratory Results 12/16/17 12/16/17 12/16/17 Range/Units 20:13 20:13 20:13 WBC (4.0-10.5) K/mm3 RBC (4.1-5.4) M/mm3 Hgb (12.0-16.0) gm/dl Hct (35-47) % MCV (78-100) fl MCH (26-32) pg MCHC (32-36) g/dl RDW (11.5-14.0) % Plt Count (150-450) K/mm3 MPV (6-9.5) fl Absolute Granulocytes (1.4-6.9) Segmented Neutrophils (36.0-66.0) % Band Neutrophils (0.0-2.0) % Lymphocytes (Manual) (24-44) % Monocytes (Manual) (0.0-12.0) % Atypical Lymphocytes % Platelet Estimate (NORMAL) RBC Morphology Basophilic Stippling pO2/FiO2 Ratio % VBG pH (7.32-7.42) VBG pCO2 at Pat Temp (42-55) mm/Hg VBG pO2 at Pat Temp (25-40) mm/Hg VBG HCO3 (22-28) meq/L VBG O2 Sat (Ward) (95-100) VBG Base Excess (-2.0-2.0) VBG Hemoglobin VBG Carboxyhemoglobin (0.0-6.9) % T HGB POC Potassium (3.5-5.1) Sodium 139 (137-145) mmol/L Potassium 3.3 L (3.5-5.1) mmol/L Chloride 102 (98-107) mmol/L Carbon Dioxide 27 (22-30) mmol/L Anion Gap 12.7 (5-15) MEQ/L BUN 32 H (7-17) mg/dL Creatinine 1.74 H (0.52-1.04) mg/dL Estimated GFR 31.0 ML/MIN Glucose 409 H (74-106) mg/dL Calcium 9.1 (8.4-10.2) mg/dL Total Bilirubin 0.40 (0.2-1.3) mg/dL AST 14 (14-36) U/L ALT 12 (0-35) U/L Alkaline Phosphatase 107 (38-126) U/L Troponin I 0.208 H* (0.000-0.034) ng/mL NT-Pro-B Natriuret Pep 2740 H (0-900) pg/mL Serum Total Protein 6.2 L (6.3-8.2) g/dL Albumin 3.0 L (3.5-5.0) g/dL Ur Collection Type CATH Urine Color YELLOW (YELLOW) Urine Appearance SLIGHTLY CLOUDY (CLEAR) Urine pH 5.0 (5-6) Ur Specific Davidson 1.020 (1.005-1.025) Urine Protein 500 (Negative) Urine Ketones MODERATE (NEGATIVE) Urine Blood TRACE NON-HEM (0-5) George/ul Urine Nitrite NEGATIVE (NEGATIVE) Urine Bilirubin NEGATIVE (NEGATIVE) Urine Urobilinogen NORMAL (0-1) mg/dL Ur Leukocyte Esterase NEGATIVE (NEGATIVE) Urine Microscopic RBC 0-2 (0-2) /HPF Urine Microscopic WBC 2-5 (0-5) /HPF Ur Epithelial Cells FEW (FEW) /HPF Amorphous Crystals MODERATE (NEGATIVE) /HPF Urine Bacteria FEW (NEGATIVE) /HPF Urine Mucus SLIGHT (NEGATIVE) /HPF Urine Culture Reflexed YES (NO) Urine Glucose 1000 (NEGATIVE) mg/dL 12/16/17 12/16/17 Range/Units 20:13 20:05 WBC 11.0 H (4.0-10.5) K/mm3 RBC 4.91 (4.1-5.4) M/mm3 Hgb 14.4 (12.0-16.0) gm/dl Hct 44.4 (35-47) % MCV 90.4 (78-100) fl MCH 29.3 (26-32) pg MCHC 32.4 (32-36) g/dl RDW 15.7 H (11.5-14.0) % Plt Count 155 (150-450) K/mm3 MPV 11.8 H (6-9.5) fl Absolute Granulocytes 8.41 H (1.4-6.9) Segmented Neutrophils 79 H (36.0-66.0) % Band Neutrophils 2 (0.0-2.0) % Lymphocytes (Manual) 12 L (24-44) % Monocytes (Manual) 4 (0.0-12.0) % Atypical Lymphocytes 3 % Platelet Estimate NORMAL (NORMAL) RBC Morphology ABNORMAL Basophilic Stippling 1+ pO2/FiO2 Ratio 21.0 % VBG pH 7.28 L (7.32-7.42) VBG pCO2 at Pat Temp 62 H* (42-55) mm/Hg VBG pO2 at Pat Temp 34 (25-40) mm/Hg VBG HCO3 29.1 H* (22-28) meq/L VBG O2 Sat (Ward) 66.7 L (95-100) VBG Base Excess 0.7 (-2.0-2.0) VBG Hemoglobin 14.8 VBG Carboxyhemoglobin 2.0 (0.0-6.9) % T HGB POC Potassium 3.5 (3.5-5.1) Sodium (137-145) mmol/L Potassium (3.5-5.1) mmol/L Chloride (98-107) mmol/L Carbon Dioxide (22-30) mmol/L Anion Gap (5-15) MEQ/L BUN (7-17) mg/dL Creatinine (0.52-1.04) mg/dL Estimated GFR ML/MIN Glucose (74-106) mg/dL Calcium (8.4-10.2) mg/dL Total Bilirubin (0.2-1.3) mg/dL AST (14-36) U/L ALT (0-35) U/L Alkaline Phosphatase (38-126) U/L Troponin I (0.000-0.034) ng/mL NT-Pro-B Natriuret Pep (0-900) pg/mL Serum Total Protein (6.3-8.2) g/dL Albumin (3.5-5.0) g/dL Ur Collection Type Urine Color (YELLOW) Urine Appearance (CLEAR) Urine pH (5-6) Ur Specific Davidson (1.005-1.025) Urine Protein (Negative) Urine Ketones (NEGATIVE) Urine Blood (0-5) George/ul Urine Nitrite (NEGATIVE) Urine Bilirubin (NEGATIVE) Urine Urobilinogen (0-1) mg/dL Ur Leukocyte Esterase (NEGATIVE) Urine Microscopic RBC (0-2) /HPF Urine Microscopic WBC (0-5) /HPF Ur Epithelial Cells (FEW) /HPF Amorphous Crystals (NEGATIVE) /HPF Urine Bacteria (NEGATIVE) /HPF Urine Mucus (NEGATIVE) /HPF Urine Culture Reflexed (NO) Urine Glucose (NEGATIVE) mg/dL - Progress Progress Note: 12/16/17 22:34 IV NORMAL SALINE 500ML/HR, INSULIN REGULAR HUMULIN 4UNITS IV, REPEAT ACCUCHECK 317 12/16/17 22:35 Discussed with : Oli (DISCUSSED WITH DR DAWSON AT 2220 FOR OBSERVATION) - Departure Time of Disposition: 22:50 Departure Disposition: Observation Clinical Impression: HYPERGLYCEMIA, PNEUMONIA, DEHYDRATION, ELEVATED TROPONIN Condition: Stable Critical Care Time: No Referrals: KERI ANTHONY [Primary Care Provider] -
[2017-12-16] MEDS ORDERED: ROCEPHIN 1 Gm-D5w 50 ml Bag** 1 G/50 ML IVPB IV STA (22:41)
[2017-12-16] MEDS ORDERED: ROCEPHIN 1 Gm-D5w 50 ml Bag** 1 G/50 ML IVPB IV ONE (22:59)
[2017-12-16] MEDS ORDERED: Nitrostat 0.4 MG Tablet SL PRN (23:57)
[2017-12-16] MEDS ORDERED: Senokot-S Tablet PO PRN (23:57)
[2017-12-16] MEDS ORDERED: MAALOX ES 30 ML UNIT DOSE PO PRN (23:57)
[2017-12-16] MEDS ORDERED: MILK OF MAGNESIA 30 ML PO PRN (23:57)
[2017-12-16] MEDS ORDERED: TYLENOL 325 MG PO PRN (23:57)
[2017-12-17 06:17] LABS: Risk Ratio 2.6
[2017-12-17] MEDS: NovoLOG Insulin SQ PRN ×4 (08:02→22:08)
--- NOTE | 2017-12-17 08:35 | PCM.HP ---
History of Present Illness - Chief Complaint Chief Complaint: HYPERGLYCEMIA/PNEUMONIA Date: 12/17/17 History of Present Illness: is a 67 year old female. with brittle type 1 diabetes was having elevated blood sugars and not eating or drinking well over the last several days. She was getting weaker she had some cough with it as well. She was eventually very weak last night and not able to walk and her brought her to ED. She states she was using her insulin but her sugars were over 600. She also stated she was using her oxygen but continued to smoke. She denies any chest pain now or previously. no nausea or vomiting no diarrhea no abdominal pains. She currently has no coughing or shortness of breath. She does feel a little better this am she thinks as well and did eat some. - Review of Systems Constitutional: Fatigue, Malaise, No Fever, No Chills Eyes: No Symptoms Ears, Nose, & Throat: No Symptoms Respiratory: No Cough, No Short Of Breath Cardiac: No Chest Pain, No Edema, No Syncope Abdominal/Gastrointestinal: No Abdominal Pain, No Nausea, No Vomiting, No Diarrhea Genitourinary Symptoms: No Dysuria Musculoskeletal: No Back Pain, No Neck Pain Skin: No Rash Neurological: No Dizziness, No Focal Weakness, No Sensory Changes Psychological: No Symptoms Endocrine: No Symptoms Hematologic/Lymphatic: No Symptoms Immunological/Allergic: No Symptoms Medications & Allergies Home Medications: Home Medication List Gabapentin 600 mg PO TID 02/27/17 [History Confirmed 12/17/17] Insulin Glargine,Hum.rec.anlog [Lantus] 25 unit SQ HS 02/27/17 [History Confirmed 12/17/17] Levothyroxine Sodium 25 Mcg [Synthroid 25 Mcg] 25 mcg PO DAILY 02/27/17 [ History Confirmed 12/17/17] Pravastatin Sodium [Pravachol] 10 mg PO HS 02/27/17 [History Confirmed 12/17/17] Carvedilol 3.125 mg [Coreg 3.125 MG] 3.125 mg PO BID 07/19/17 [History Confirmed 12/17/17] Ranitidine HCl [Zantac] 300 mg PO BID 07/19/17 [History Confirmed 12/17/17] Tramadol HCl 50 mg [Ultram 50 mg] 50 mg PO QAM 07/19/17 [History Confirmed 12/17/17] Alprazolam 0.5 mg [xanAX 0.5 MG] 1 tab PO BID 08/14/17 [History Confirmed 12/17/17] Insulin Aspart [NovoLOG Insulin] 0 units SQ UD 08/14/17 [History Confirmed ] Amlodipine Besylate 5 mg PO DAILY 11/27/17 [History Confirmed 12/17/17] Duloxetine HCl 60 mg PO DAILY 11/27/17 [History Confirmed 12/17/17] Allergies/Adverse Reactions: Allergies Allergy/AdvReac Type Severity Reaction Status Date / Time No Known Drug Allergies Allergy Verified 12/16/17 19:22 - Past Medical History Past Medical History: Yes Neurological History: No Pertinent History ENT History: Cataracts Cardiac History: High Cholesterol, Myocardial Infarction ([place]) Respiratory History: COPD Endocrine Medical History: Diabetes Type I Musculoskelatal History: Degenerative Disk Disease GI Medical History: GERD History: No Pertinent History Pyscho-Social History: Anxiety Reproductive Disorders: Cervical Cancer Comment: chronic back pain - Female History Are you now?: No - Past Surgical History Past Surgical History: Yes Neuro Surgical History: No Pertinent History Cardiac History: Cardiac Catheterization, Cardiac Stent Respiratory Surgery: No Pertinent History GI Surgical History: Appendectomy, Cholecystectomy Genitourinary Surgical Hx: No Pertinent History Musculskeletal Surgical Hx: Orthopedic Surgery Female Surgical History: Hysterectomy Other Surgical History: RIGHT HIP SURGERY ball placed, BACK SURGERY -unknown - Social History Smoking Status: Current every day smoker How long have you smoked: 35 years Exposure to second hand smoke: Yes Alcohol: None Drug Use: none - Physical Exam Vital Signs: Vital Signs - 24 hr Temp Pulse Resp BP Pulse Ox 12/17/17 07:01 91 L 12/17/17 06:57 97.9 F 93 H 16 167/75 92 L 12/17/17 03:38 97.9 F 82 17 166/72 92 L 12/17/17 00:08 97.6 F 78 18 120/58 87 L 12/16/17 23:59 91 L 12/16/17 22:50 80 92 L 12/16/17 22:40 88 175/63 95 12/16/17 22:37 95 12/16/17 21:59 83 150/66 95 12/16/17 21:26 75 16 95 12/16/17 20:49 80 18 150/66 95 12/16/17 19:59 81 100 12/16/17 19:09 98.5 F 80 20 132/60 Oxygen-Last 24 hours O2 Percentage 3 Liters = 32% O2 Percentage 3 Liters = 32% O2 Percentage 3 Liters = 32% O2 Percentage 3 Liters = 32% O2 Percentage 3 Liters = 32% O2 Percentage 3 Liters = 32% Oxygen Flowrate (L/min)-RT 3 General Appearance: no apparent distress, alert, thin Neurologic Exam: alert, oriented x 3, cooperative, normal mood/affect, nml cerebellar function, nml station & gait, sensation nml, No motor deficits Eye Exam: PERRL/EOMI, eyes nml inspection Ears, Nose, Throat Exam: normal ENT inspection, moist mucous membranes, dry mucous membranes Neck Exam: normal inspection, non-tender, supple, full range of motion Respiratory Exam: normal breath sounds, lungs clear, No respiratory distress Cardiovascular Exam: regular rate/rhythm, normal heart sounds, normal peripheral pulses Gastrointestinal/Abdomen Exam: soft, normal bowel sounds, No tenderness, No mass Back Exam: normal inspection, normal range of motion, No CVA tenderness, No vertebral tenderness Extremity Exam: normal inspection, normal range of motion, pelvis stable Skin Exam: normal color, warm, dry, No rash Lymphatic Exam: No adenopathy Results - Labs Lab/Micro Results: Accuchecks Accucheck Value: 298 Accucheck Value: 317 Accucheck Value: 317 Accucheck Value: 393 Lab Results-Last 24 Hours 12/16/17 12/16/17 12/16/17 Range/Units 20:05 20:13 20:13 WBC 11.0 H (4.0-10.5) K/mm3 RBC 4.91 (4.1-5.4) M/mm3 Hgb 14.4 (12.0-16.0) gm/dl Hct 44.4 (35-47) % MCV 90.4 (78-100) fl MCH 29.3 (26-32) pg MCHC 32.4 (32-36) g/dl RDW 15.7 H (11.5-14.0) % Plt Count 155 (150-450) K/mm3 MPV 11.8 H (6-9.5) fl Absolute Granulocytes 8.41 H (1.4-6.9) Segmented Neutrophils 79 H (36.0-66.0) % Band Neutrophils 2 (0.0-2.0) % Lymphocytes (Manual) 12 L (24-44) % Monocytes (Manual) 4 (0.0-12.0) % Atypical Lymphocytes 3 % Platelet Estimate NORMAL (NORMAL) RBC Morphology ABNORMAL Basophilic Stippling 1+ pO2/FiO2 Ratio 21.0 % VBG pH 7.28 L (7.32-7.42) VBG pCO2 at Pat Temp 62 H* (42-55) mm/Hg VBG pO2 at Pat Temp 34 (25-40) mm/Hg VBG HCO3 29.1 H* (22-28) meq/L VBG O2 Sat (Ward) 66.7 L (95-100) VBG Base Excess 0.7 (-2.0-2.0) VBG Hemoglobin 14.8 VBG Carboxyhemoglobin 2.0 (0.0-6.9) % T HGB POC Potassium 3.5 (3.5-5.1) Sodium 139 (137-145) mmol/L Potassium 3.3 L (3.5-5.1) mmol/L Chloride 102 (98-107) mmol/L Carbon Dioxide 27 (22-30) mmol/L Anion Gap 12.7 (5-15) MEQ/L BUN 32 H (7-17) mg/dL Creatinine 1.74 H (0.52-1.04) mg/dL Estimated GFR 31.0 ML/MIN Glucose 409 H (74-106) mg/dL Calcium 9.1 (8.4-10.2) mg/dL Total Bilirubin 0.40 (0.2-1.3) mg/dL AST 14 (14-36) U/L ALT 12 (0-35) U/L Alkaline Phosphatase 107 (38-126) U/L Troponin I (0.000-0.034) ng/mL NT-Pro-B Natriuret Pep 2740 H (0-900) pg/mL Serum Total Protein 6.2 L (6.3-8.2) g/dL Albumin 3.0 L (3.5-5.0) g/dL Triglycerides (30-150) mg/dL Cholesterol (50-200) mg/dL LDL Cholesterol (30-100) mg/dL HDL Cholesterol (40-60) mg/dL Heart Disease Risk Ratio Ur Collection Type Urine Color (YELLOW) Urine Appearance (CLEAR) Urine pH (5-6) Ur Specific [place] (1.005-1.025) Urine Protein (Negative) Urine Ketones (NEGATIVE) Urine Blood (0-5) George/ul Urine Nitrite (NEGATIVE) Urine Bilirubin (NEGATIVE) Urine Urobilinogen (0-1) mg/dL Ur Leukocyte Esterase (NEGATIVE) Urine Microscopic RBC (0-2) /HPF Urine Microscopic WBC (0-5) /HPF Ur Epithelial Cells (FEW) /HPF Amorphous Crystals (NEGATIVE) /HPF Urine Bacteria (NEGATIVE) /HPF Urine Mucus (NEGATIVE) /HPF Urine Culture Reflexed (NO) Urine Glucose (NEGATIVE) mg/dL 12/16/17 12/16/17 12/16/17 Range/Units 20:13 20:13 23:13 WBC (4.0-10.5) K/mm3 RBC (4.1-5.4) M/mm3 Hgb (12.0-16.0) gm/dl Hct (35-47) % MCV (78-100) fl MCH (26-32) pg MCHC (32-36) g/dl RDW (11.5-14.0) % Plt Count (150-450) K/mm3 MPV (6-9.5) fl Absolute Granulocytes (1.4-6.9) Segmented Neutrophils (36.0-66.0) % Band Neutrophils (0.0-2.0) % Lymphocytes (Manual) (24-44) % Monocytes (Manual) (0.0-12.0) % Atypical Lymphocytes % Platelet Estimate (NORMAL) RBC Morphology Basophilic Stippling pO2/FiO2 Ratio % VBG pH (7.32-7.42) VBG pCO2 at Pat Temp (42-55) mm/Hg VBG pO2 at Pat Temp (25-40) mm/Hg VBG HCO3 (22-28) meq/L VBG O2 Sat (Ward) (95-100) VBG Base Excess (-2.0-2.0) VBG Hemoglobin VBG Carboxyhemoglobin (0.0-6.9) % T HGB POC Potassium (3.5-5.1) Sodium (137-145) mmol/L Potassium (3.5-5.1) mmol/L Chloride (98-107) mmol/L Carbon Dioxide (22-30) mmol/L Anion Gap (5-15) MEQ/L BUN (7-17) mg/dL Creatinine (0.52-1.04) mg/dL Estimated GFR ML/MIN Glucose (74-106) mg/dL Calcium (8.4-10.2) mg/dL Total Bilirubin (0.2-1.3) mg/dL AST (14-36) U/L ALT (0-35) U/L Alkaline Phosphatase (38-126) U/L Troponin I 0.208 H* 0.251 H* (0.000-0.034) ng/mL NT-Pro-B Natriuret Pep (0-900) pg/mL Serum Total Protein (6.3-8.2) g/dL Albumin (3.5-5.0) g/dL Triglycerides (30-150) mg/dL Cholesterol (50-200) mg/dL LDL Cholesterol (30-100) mg/dL HDL Cholesterol (40-60) mg/dL Heart Disease Risk Ratio Ur Collection Type CATH Urine Color YELLOW (YELLOW) Urine Appearance SLIGHTLY CLOUDY (CLEAR) Urine pH 5.0 (5-6) Ur Specific [place] 1.020 (1.005-1.025) Urine Protein 500 (Negative) Urine Ketones MODERATE (NEGATIVE) Urine Blood TRACE NON-HEM (0-5) George/ul Urine Nitrite NEGATIVE (NEGATIVE) Urine Bilirubin NEGATIVE (NEGATIVE) Urine Urobilinogen NORMAL (0-1) mg/dL Ur Leukocyte Esterase NEGATIVE (NEGATIVE) Urine Microscopic RBC 0-2 (0-2) /HPF Urine Microscopic WBC 2-5 (0-5) /HPF Ur Epithelial Cells FEW (FEW) /HPF Amorphous Crystals MODERATE (NEGATIVE) /HPF Urine Bacteria FEW (NEGATIVE) /HPF Urine Mucus SLIGHT (NEGATIVE) /HPF Urine Culture Reflexed YES (NO) Urine Glucose 1000 (NEGATIVE) mg/dL 12/17/17 12/17/17 Range/Units 05:13 05:13 WBC (4.0-10.5) K/mm3 RBC (4.1-5.4) M/mm3 Hgb (12.0-16.0) gm/dl Hct (35-47) % MCV (78-100) fl MCH (26-32) pg MCHC (32-36) g/dl RDW (11.5-14.0) % Plt Count (150-450) K/mm3 MPV (6-9.5) fl Absolute Granulocytes (1.4-6.9) Segmented Neutrophils (36.0-66.0) % Band Neutrophils (0.0-2.0) % Lymphocytes (Manual) (24-44) % Monocytes (Manual) (0.0-12.0) % Atypical Lymphocytes % Platelet Estimate (NORMAL) RBC Morphology Basophilic Stippling pO2/FiO2 Ratio % VBG pH (7.32-7.42) VBG pCO2 at Pat Temp (42-55) mm/Hg VBG pO2 at Pat Temp (25-40) mm/Hg VBG HCO3 (22-28) meq/L VBG O2 Sat (Ward) (95-100) VBG Base Excess (-2.0-2.0) VBG Hemoglobin VBG Carboxyhemoglobin (0.0-6.9) % T HGB POC Potassium (3.5-5.1) Sodium (137-145) mmol/L Potassium (3.5-5.1) mmol/L Chloride (98-107) mmol/L Carbon Dioxide (22-30) mmol/L Anion Gap (5-15) MEQ/L BUN (7-17) mg/dL Creatinine (0.52-1.04) mg/dL Estimated GFR ML/MIN Glucose (74-106) mg/dL Calcium (8.4-10.2) mg/dL Total Bilirubin (0.2-1.3) mg/dL AST (14-36) U/L ALT (0-35) U/L Alkaline Phosphatase (38-126) U/L Troponin I 0.264 H* (0.000-0.034) ng/mL NT-Pro-B Natriuret Pep (0-900) pg/mL Serum Total Protein (6.3-8.2) g/dL Albumin (3.5-5.0) g/dL Triglycerides 102 (30-150) mg/dL Cholesterol 117 (50-200) mg/dL LDL Cholesterol 45 (30-100) mg/dL HDL Cholesterol 45 (40-60) mg/dL Heart Disease Risk Ratio 2.6 Ur Collection Type Urine Color (YELLOW) Urine Appearance (CLEAR) Urine pH (5-6) Ur Specific [place] (1.005-1.025) Urine Protein (Negative) Urine Ketones (NEGATIVE) Urine Blood (0-5) George/ul Urine Nitrite (NEGATIVE) Urine Bilirubin (NEGATIVE) Urine Urobilinogen (0-1) mg/dL Ur Leukocyte Esterase (NEGATIVE) Urine Microscopic RBC (0-2) /HPF Urine Microscopic WBC (0-5) /HPF Ur Epithelial Cells (FEW) /HPF Amorphous Crystals (NEGATIVE) /HPF Urine Bacteria (NEGATIVE) /HPF Urine Mucus (NEGATIVE) /HPF Urine Culture Reflexed (NO) Urine Glucose (NEGATIVE) mg/dL Microbiology 12/16/17 20:13 Urine Culture - Preliminary Urine, Catheterized NO GROWTH TO DATE Accuchecks Accucheck Value: 298 Accucheck Value: 317 Accucheck Value: 317 Accucheck Value: 393 - Radiology Impressions Radiology Exams & Impressions: Radiology Procedures Category Date Time Status CHEST 1 VIEW (PORTABLE) Stat Exams 12/16/17 19:47 Taken CHEST WITHOUT CONTRAST [CT] Routine Exams 12/17/17 08:20 Ordered ECHO W/2D AND DOPPLER [US] Routine Exams 12/17/17 Ordered HEAD WITHOUT CONTRAST [CT] Stat Exams 12/16/17 19:50 Taken - Other Procedures and Tests Respiratory Therapy 12/17/17 00:12 Oxygen NASAL CANNULA 3 lpm 12/17/17 07:01 Respiratory Therapy Assessment DAILY 12/18/17 05:00 EKG ROUTINE 12/19/17 05:00 EKG ROUTINE 12/20/17 05:00 EKG ROUTINE Assessment/Plan (1) Type 1 diabetes mellitus Current Visit: Yes Status: Acute Onset Date: ~08/14/17 Qualifiers: Assessment & Plan: will check echo trend troponin and consult cardiology she is asymptomatic from chest pain stand point and ekg shows no changes with her persitent left lower lobe effusion/infiltrate will check chest ct for further characterization. add nicotine patch add prandial insulin to sliding scale and continue basal insulin lantus add fluid for hydration and monitor i/o currently on ceftriaxone and azithromycin for pneumonia and lovenox for dvt ppx (2) Elevated troponin Current Visit: Yes Status: Acute Onset Date: ~12/16/17 Code(s): R74.8 - ABNORMAL LEVELS OF OTHER SERUM ENZYMES (3) COPD (chronic obstructive pulmonary disease) Current Visit: Yes Status: Chronic (4) Tobacco dependence Current Visit: Yes Status: Chronic Code(s): F17.200 - NICOTINE DEPENDENCE, UNSPECIFIED, UNCOMPLICATED (5) Coronary artery disease Current Visit: No Status: Chronic Code(s): I25.10 - ATHSCL HEART DISEASE OF [place] CORONARY ARTERY W/O ANG PCTRS (6) History of heart artery stent Current Visit: Yes Status: Chronic Code(s): Z95.5 - PRESENCE OF CORONARY ANGIOPLASTY IMPLANT AND GRAFT (7) Pneumonia Current Visit: Yes Status: Acute Onset Date: ~12/16/17 Code(s): J18.9 - PNEUMONIA, UNSPECIFIED ORGANISM
--- NOTE | 2017-12-17 08:54 | XRAY ---
Exam: CT of the head without IV contrast from 12/16/2017. CTDI: 65.91 Comparison: CT of the head without IV contrast from 02/26/2017. Indication: Lethargy in 67-year-old female. Technique: Non-IV contrast axial images were obtained through the brain. Reconstructed coronal and sagittal images were created and reviewed. Findings: Some motion artifact were seen on the initial images. Therefore, these were repeated. The ventricles appear within normal limits of size for the patient's age. No focal mass effect or midline shift is seen. I again note evidence of an old small lacunar infarct within the left thalamus. No new low attenuation lesion is seen to suggest an acute territorial infarct. I see no evidence of acute intracranial bleed or abnormal extra-axial fluid collection. There are some subtle bilateral periventricular and subcortical white matter changes, likely reflecting mild chronic small vessel ischemic disease. The cortical sulci and basilar cisterns are mildly prominent representing no change. The calvarium of the skull appears intact. A new small mild soft tissue density is seen within the posterior aspect of the sphenoid sinus on the left without air-fluid level. There is also minimal mucosal thickening within the posterior left maxillary sinus, but this is unchanged. Mild deviation of the nasal septum toward the left is seen. The remainder the visualized paranasal sinuses appears clear. The mastoid air cells are clear. Some atherosclerotic vascular calcification is seen within the cavernous portion of the internal carotid arteries representing no change. Impression: 1. No significant interval change from 02/26/2017. I do note minimal nonspecific sinus disease within the posterior aspect of the sphenoid sinus on the left which is new. However, no air-fluid levels are seen. Minimal mucosal thickening at the posterior left maxillary sinus appears unchanged. 2. No acute intracranial bleed or other acute intracranial process is seen. 3. Small chronic lacunar infarct within left thalamus representing no change from 02/26/2017. 4. Mild focal atrophic changes and chronic microvascular disease are seen representing no significant change.
--- NOTE | 2017-12-17 08:59 | XRAY ---
Exam: AP 80 upright portable chest film from 12/16/2017. Comparison: Two-view chest from 11/27/2017. Indication: Dyspnea. Findings: The left cardiac border is obscured by dense opacity at the left lung base. This also obscures the left hemidiaphragm. At least some of this is due to moderate sized left basilar pleural effusion which has increased as compared to 11/27/2017. Underlying atelectasis and/or infiltrate cannot be excluded. I believe there is some subsegmental atelectasis which is obliquely oriented lateral to the left hilum. The left upper lung field appears clear. The right lung reveals vertically oriented subsegmental atelectasis at the medial right lung base. The remainder of the lung rojas are hyperinflated, but clear. Minimal biapical pleural thickening is seen. There is no pneumothorax or vascular congestion. The right costophrenic angle appears unremarkable. I again see bone demineralization, a significant compression fracture deformity of T7, old right-sided rib fracture deformities, and an old healed fracture deformity through the surgical neck of the proximal right humerus. EKG leads are seen in place. Impression: 1. Left basilar pleural effusion has increased as compared to 11/27/2017 and now involves approximately the lower 30% of the left lung field. I believe there is some underlying left basilar atelectasis, but concomitant infiltrate cannot be excluded. Correlate clinically. 2. Hyperinflation of lung rojas suggestive of element of COPD. 3. Vertically orientated subsegmental atelectasis is seen at the medial right lung base. The remainder of the lung rojas is clear. 4. Stable skeletal findings, as discussed above.
[2017-12-17] MEDS: Cymbalta 30 MG Capsule PO SCH (09:16)
[2017-12-17] MEDS: NEURONTIN 300 MG PO SCH ×2 (09:17→15:47)
[2017-12-17] MEDS: SYNTHROID 25 MCG PO SCH (09:17)
[2017-12-17] MEDS: NORVASC 5 MG PO SCH (09:17)
[2017-12-17] MEDS: xanAX 0.5 MG PO SCH ×2 (09:17→21:55)
[2017-12-17] MEDS: Lactated Ringers 1,000 ML IV SCH ×2 (09:17→17:44)
[2017-12-17] MEDS: Pepcid 20 MG PO SCH ×2 (09:17→21:56)
[2017-12-17] MEDS: ECOTRIN 81 MG PO SCH (09:17)
[2017-12-17] MEDS: Nicoderm CQ 21 MG TOP SCH (09:26)
--- NOTE | 2017-12-17 09:48 | XRAY ---
Exam: CT of the chest without IV contrast from 12/17/2017. CTDI: 7.86. Comparison: AP 80 upright portable chest film from 12/16/2017. Indication: 67-year-old female with swelling of lower extremities, dehydration, persistent left lower lung findings. Technique: Non-IV contrast axial images were obtained through the chest. Reconstructed coronal and sagittal images were created and reviewed. Findings: The heart size is normal without pericardial effusion. I note significant three-vessel coronary artery vascular calcification suggesting coronary artery disease. There is moderate vascular calcification within the thoracic aorta and great vessels arising from the aortic arch. No thoracic aortic aneurysm is seen. I note some calcifications within the wall of the thoracic trachea and major central branching bronchi. There is some small scattered lymph nodes within the superior mediastinum, pericarinal region, AP window on the left, and subcarinal region which are likely reactive. I see no bulky abnormal mediastinal or perihilar lymphadenopathy to strongly suggest malignant disease. The major airways appear patent. There is a large posterior layering left pleural effusion and a mild posterior layering right pleural effusion. In addition, there is a small focal consolidation adjacent to the anterior margin of the large pleural effusion at the left lung base which contains some air bronchograms within it. This may reflect pneumonic infiltrate and/or atelectasis. There also appears to be a smaller triangular shaped consolidation within the lingula at the anterior medial left lung base containing air bronchograms consistent with infiltrate and probable atelectasis. Lastly, there is some probable compression atelectasis at the posterior right lung base adjacent to the smaller pleural effusion on this side. The lung rojas reveal mild centrilobular emphysematous changes, most pronounced within the upper lung rojas. Small bulla are seen at the superior right lung apex and anterior medial left lung apex. I also note some mild biapical pleural-parenchymal scarring. See axial image #9. No other significant interstitial lung disease or suspicious soft tissue lung nodules are seen. The skeleton reveals a healed right humeral neck fracture, multiple posterior right rib fracture deformities which do not appear completely healed, at least one healed anterolateral right sixth rib fracture, a marked anterior wedge fracture deformity of T7, and a mild anterior wedge fracture deformity of T2. In retrospect, I believe the T2 fracture can be seen on prior chest radiographs, although it is much easier to see on the current CT study. There is some dense calcification within the T12-L1 disc on the sagittal images. Limited images of the upper abdomen reveal no gross abnormality of the adrenal glands. There is some branching density within the central aspect of the liver, at least some of which appears to be due to hepatic venous structures. The possibility of some intrahepatic biliary duct distention is difficult to entirely exclude on these limited images. Correlate with liver function tests. Impression: 1. Bilateral posterior layering pleural effusions, large on the left and mild on the right. 2. In addition, there appears to be some focal left lower lobe and medial lingula infiltrate and/or atelectasis. Concomitant pneumonia is not excluded. I believe there are probably some small reactive lymph nodes within the mediastinum. 3. Mild compression atelectasis is seen at the posterior right lung base adjacent to the smaller pleural effusion on this side. 4. Centrilobular emphysematous changes are seen, predominantly within the upper lung rojas. I also note mild biapical pleural-parenchymal scarring and some bulla/blebs at the superior right lung apex and anterior medial left lung apex. No other active lung disease is seen. 5. Significant three-vessel coronary artery vascular calcification consistent with coronary artery disease. 6. Questionable intrahepatic biliary duct distention on limited images through the upper abdomen. Please correlate with liver function tests to see if further investigation is needed. 7. Skeletal findings, as discussed above.
[2017-12-17] MEDS ORDERED: Coreg 3.125 MG PO SCH (10:00)
[2017-12-17] MEDS ORDERED: Ecotrin 325 MG PO SCH (10:00)
[2017-12-17] MEDS: ENOXAPARIN SODIUM SQ SCH (11:23)
[2017-12-17] MEDS: NovoLOG Insulin SQ SCH ×2 (12:08→17:44)
[2017-12-17 12:12] LABS: BASOPHIL % 0.4 % (0.0-0.4); Basophil (Absolute #) 0.04 (0-0.4); Eosinophil % 0.8 % (0.00-5.0); Eosinophil (Absolute #) 0.08 (0-0.5); Granulocyte Absolute (ANC) 8.32 (1.4-6.9); Granulocytes % 85.2 % (36.0-66.0); Hemoglobin 12.7 gm/dl (12.0-16.0); Lymphocyte (Absolute #) 0.86 (1.0-4.6); Lymphocytes % 8.8 % (24.0-44.0); Mean Cell Volume 90.7 fl (78-100); Mean Corpuscular Hemoglobin 29.5 pg (26-32); Mean Corpuscular Hgb Concent. 32.6 g/dl (32-36); Mean Platelet Volume 10.6 fl (6-9.5); Monocyte (Absolute #) 0.47 (0.0-1.3); Monocytes % 4.8 % (0.0-12.0); Platelet Count 188 K/mm3 (150-450); Red Cell Distribution Width 15.7 % (11.5-14.0); White Blood Count 9.8 K/mm3 (4.0-10.5)
[2017-12-17 12:47] LABS: ANION GAP 10.5 MEQ/L (5-15); Calcium 8.3 mg/dL (8.4-10.2); Creatinine 1 1.36 mg/dL (0.52-1.04); Potassium 3.2 mmol/L (3.5-5.1)
[2017-12-17 12:49] LABS: TROPONIN 0.207 ng/mL (0.000-0.034)
[2017-12-17] MEDS ORDERED: K-LYTE 25 MEQ PO ONE (19:59)
[2017-12-17] MEDS: ROCEPHIN 1 Gm-D5w 50 ml Bag** 1 G/50 ML IVPB IV SCH (21:55)
[2017-12-17] MEDS: Zocor 10MG PO SCH (21:56)
[2017-12-17] MEDS ORDERED: Lantus Insulin SQ SCH (22:00)
[2017-12-17] MEDS ORDERED: Coreg 6.25 MG PO SCH (22:00)
[2017-12-17] MEDS ORDERED: NON-FORMULARY ITEM (Pravastatin Sodium [Pravachol] 10 MG) PO SCH (22:00)
[2017-12-17] MEDS: Zithromax 500 MG/ 250 ML NaCl Premix 500 MG/250 ML IVPB IV SCH (22:30)
[2017-12-18 05:25] LABS: Hematocrit 40.7 % (35-47); Hemoglobin 13.5 gm/dl (12.0-16.0); Mean Cell Volume 90.4 fl (78-100); Mean Corpuscular Hgb Concent. 33.2 g/dl (32-36); Mean Platelet Volume 11.3 fl (6-9.5); Platelet Count 162 K/mm3 (150-450); White Blood Count 8.5 K/mm3 (4.0-10.5)
[2017-12-18 05:43] LABS: 027 TOX PROD PRESUMPTIVE NEGATIVE (NEGATIVE); TOXIGENIC C. DIFF ORG NEGATIVE (NEGATIVE)
[2017-12-18 05:49] LABS: ANION GAP 4.7 MEQ/L (5-15); Calcium 8.2 mg/dL (8.4-10.2); Creatinine 1 1.08 mg/dL (0.52-1.04)
[2017-12-18 06:02] LABS: Potassium 2.6 mmol/L (3.5-5.1)
[2017-12-18] MEDS: Sodium Chloride 0.9% 500 ML 500 ML IV SCH ×2 (06:18→16:07)
[2017-12-18] MEDS: POTASSIUM CHLORIDE 20 mEq IN WATER 100ML 20 MEQ/100 ML BAG IV SCH ×2 (06:23→08:21)
[2017-12-18] MEDS: NovoLOG Insulin SQ SCH (08:08)
[2017-12-18] MEDS: Nicoderm CQ 21 MG TOP SCH (08:20)
--- NOTE | 2017-12-18 08:46 | PCM.NOTE ---
Date and Time: 12/18/17 0840 Subjective Assessment: still fatigued more alert she thinks today has been up since 04:30 whatching the news. she states she is feeling weak. denies shortness of breath or chest pain. Objective Exam General Appearance: no apparent distress Neurologic Exam: alert, oriented x 3, cooperative Skin Exam: warm, dry Eye Exam: pale conjunctivae, No scleral icterus Ears, Nose, Throat Exam: dry mucous membranes Neck Exam: non-tender, supple Respiratory Exam: normal breath sounds, lungs clear Cardiovascular Exam: regular rate/rhythm, normal heart sounds, normal peripheral pulses, No murmur Gastrointestinal/Abdomen Exam: soft, normal bowel sounds, No tenderness, No distention Extremity Exam: normal inspection, No pedal edema OBJECTIVE DATA Vital Signs: Vital Signs - 24 hr Temp Pulse Resp BP Pulse Ox 12/18/17 07:01 98.4 F 78 16 159/75 92 L 12/18/17 04:20 98.5 F 78 18 144/78 93 L 12/18/17 04:00 18 12/17/17 23:54 18 12/17/17 23:33 98.3 F 82 18 140/66 91 L 12/17/17 20:00 15 12/17/17 19:33 98.8 F 90 15 135/65 93 L 12/17/17 19:31 90 L 12/17/17 15:00 98.6 F 87 16 143/65 93 L 12/17/17 11:30 98.3 F 85 16 152/70 96 Oxygen-Last 24 hours O2 Percentage 3 Liters = 32% O2 Percentage 3 Liters = 32% O2 Percentage 3 Liters = 32% O2 Percentage 3 Liters = 32% O2 Percentage 3 Liters = 32% O2 Percentage 3 Liters = 32% Pain Assessment - Last Documented Pain Intensity 0 Pain Scale Used 0-10 Pain Scale Intake and Output: Intake & Output 12/15/17 12/16/17 12/17/17 12/18/17 11:59 11:59 11:59 11:59 Intake Total 220 939 Output Total 500 600 Balance -280 339 Weight 56.2 kg 57 kg Lab Results: Accuchecks Date 12/17/17 Time 22:00 Accucheck Value: 218 Accucheck Value: 291 Accucheck Value: 309 Lab Results-Last 24 Hours 12/17/17 12/17/1712/18/18 Range/Units 12:03 12:03 04:43 WBC 9.8 (4.0-10.5) K/mm3 RBC 4.30 (4.1-5.4) M/mm3 Hgb 12.7 (12.0-16.0) gm/dl Hct 39.0 (35-47) % MCV 90.7 (78-100) fl MCH 29.5 (26-32) pg MCHC 32.6 (32-36) g/dl RDW 15.7 H (11.5-14.0) % Plt Count 188 (150-450) K/mm3 MPV 10.6 H (6-9.5) fl Gran % 85.2 H (36.0-66.0) % Eos # (Auto) 0.08 (0-0.5) Absolute Lymphs (auto) 0.86 L (1.0-4.6) Absolute Monos (auto) 0.47 (0.0-1.3) Lymphocytes % 8.8 L (24.0-44.0) % Monocytes % 4.8 (0.0-12.0) % Eosinophils % 0.8 (0.00-5.0) % Basophils % 0.4 (0.0-0.4) % Absolute Granulocytes 8.32 H (1.4-6.9) Basophils # 0.04 (0-0.4) Sodium 139 (137-145) mmol/L Potassium 3.2 L (3.5-5.1) mmol/L Chloride 106 (98-107) mmol/L Carbon Dioxide 27 (22-30) mmol/L Anion Gap 10.5 (5-15) MEQ/L BUN 25 H (7-17) mg/dL Creatinine 1.36 H (0.52-1.04) mg/dL Estimated GFR 41.2 ML/MIN Glucose 351 H (74-106) mg/dL Calcium 8.3 L (8.4-10.2) mg/dL Troponin I 0.207 H* (0.000-0.034) ng/mL Stl C. diff Tox B Gene NEGATIVE (NEGATIVE) C.difficile 027-NAP1-B1 PRESUMPTIVE NEGATIVE (NEGATIVE) 12/18/17 12/18/17 Range/Units 05:22 05:22 WBC 8.5 (4.0-10.5) K/mm3 RBC 4.50 (4.1-5.4) M/mm3 Hgb 13.5 (12.0-16.0) gm/dl Hct 40.7 (35-47) % MCV 90.4 (78-100) fl MCH 30.0 (26-32) pg MCHC 33.2 (32-36) g/dl RDW 16.0 H (11.5-14.0) % Plt Count 162 (150-450) K/mm3 MPV 11.3 H (6-9.5) fl Gran % (36.0-66.0) % Eos # (Auto) (0-0.5) Absolute Lymphs (auto) (1.0-4.6) Absolute Monos (auto) (0.0-1.3) Lymphocytes % (24.0-44.0) % Monocytes % (0.0-12.0) % Eosinophils % (0.00-5.0) % Basophils % (0.0-0.4) % Absolute Granulocytes (1.4-6.9) Basophils # (0-0.4) Sodium 142 (137-145) mmol/L Potassium 2.6 L* (3.5-5.1) mmol/L Chloride 108 H (98-107) mmol/L Carbon Dioxide 32 H (22-30) mmol/L Anion Gap 4.7 L (5-15) MEQ/L BUN 20 H (7-17) mg/dL Creatinine 1.08 H (0.52-1.04) mg/dL Estimated GFR 53.8 ML/MIN Glucose 98 (74-106) mg/dL Calcium 8.2 L (8.4-10.2) mg/dL Troponin I (0.000-0.034) ng/mL Stl C. diff Tox B Gene (NEGATIVE) C.difficile 027-NAP1-B1 (NEGATIVE) Radiology Exams: Radiology Procedures Category Date Time Status CHEST 1 VIEW (PORTABLE) Stat Exams 12/16/17 19:47 Completed CHEST WITHOUT CONTRAST [CT] Routine Exams 12/17/17 08:20 Completed ECHO W/2D AND DOPPLER [US] Routine Exams 12/17/17 13:55 Taken HEAD WITHOUT CONTRAST [CT] Stat Exams 12/16/17 19:50 Completed Multi-Disciplinary Progress Notes: Multi-Disciplinary Progress Notes 12/17/17 19:28 Respiratory Note by Zo Mosley PER DR. ANTHONY CO2 SPOT CHECK WAS A ONE TIME CHECK. Initialized on 12/17/17 19:28 - END OF NOTE 12/17/17 16:01 Respiratory Note by Zoie Paredes DR. CALLED PER NURSE DUE TO PT HAVING DECREASED LEVEL OF CONSCIOUSNESS. DR. ANTHONY REQUESTED PT HAVE SPOT CO2 CHECK DONE. PT'S CO2 40 AT THIS TIME. PT'S REMAINS ON 3LPM NASAL CANNULA PER HOME USE. PT'S O2 SAT 93%. PT WAS SLEEPING WHEN I ENTERED THE ROOM TO DO CO2 CHECK BUT PT DID WAKE FAIRLY EASILY AND WAS TALKING WHILE I WAS IN THE ROOM. DR. ANTHONY NURSE NOTIFIED OF CO2 RESULTS. Initialized on 12/17/17 16:01 - END OF NOTE Assessment/Plan (1) Pneumonia Current Visit: Yes Status: Acute Onset Date: ~12/16/17 Assessment & Plan: will likely need rehab therapy with her increased weakness and recurrent hospitalizations continue azithromycin and ceftriaxone lovenox for ppx increase carvedilol with the high bp the gabapentin and alprazolam are being held due to her increased fatigue. Code(s): J18.9 - PNEUMONIA, UNSPECIFIED ORGANISM (2) Type 1 diabetes mellitus Current Visit: Yes Status: Acute Onset Date: ~08/14/17 Qualifiers: Assessment & Plan: much improved now 98 on am labs continue current treatment still very fatigued (3) Elevated troponin Current Visit: Yes Status: Acute Onset Date: ~12/16/17 Code(s): R74.8 - ABNORMAL LEVELS OF OTHER SERUM ENZYMES (4) COPD (chronic obstructive pulmonary disease) Current Visit: Yes Status: Chronic (5) Tobacco dependence Current Visit: Yes Status: Chronic Code(s): F17.200 - NICOTINE DEPENDENCE, UNSPECIFIED, UNCOMPLICATED (6) Coronary artery disease Current Visit: No Status: Chronic Code(s): I25.10 - ATHSCL HEART DISEASE OF [place] CORONARY ARTERY W/O ANG PCTRS (7) History of heart artery stent Current Visit: Yes Status: Chronic Code(s): Z95.5 - PRESENCE OF CORONARY ANGIOPLASTY IMPLANT AND GRAFT (8) Weakness Current Visit: Yes Status: Acute Onset Date: ~12/16/17 Code(s): R53.1 - WEAKNESS (9) Acute kidney injury Current Visit: Yes Status: Resolved Onset Date: ~12/17/17 Code(s): N17.9 - ACUTE KIDNEY FAILURE, UNSPECIFIED
[2017-12-18] MEDS: K-LYTE 25 MEQ PO SCH ×3 (10:23→21:45)
[2017-12-18] MEDS: ENOXAPARIN SODIUM SQ SCH (10:23)
[2017-12-18] MEDS: Cymbalta 30 MG Capsule PO SCH (10:23)
[2017-12-18] MEDS: ECOTRIN 81 MG PO SCH (10:23)
[2017-12-18] MEDS: Pepcid 20 MG PO SCH ×2 (10:23→21:46)
[2017-12-18] MEDS: NORVASC 5 MG PO SCH (10:24)
[2017-12-18] MEDS: SYNTHROID 25 MCG PO SCH (10:24)
[2017-12-18] MEDS: Coreg 6.25 MG PO SCH ×2 (10:24→21:44)
[2017-12-18] MEDS ORDERED: D50W 50 ml Abboject IV ONE ×2 (10:58→11:09)
[2017-12-18 14:13] LABS: Potassium 4.1 mmol/L (3.5-5.1)
[2017-12-18] MEDS: NovoLOG Insulin SQ PRN ×2 (16:36→22:02)
[2017-12-18] MEDS: Lantus Insulin SQ SCH (21:45)
[2017-12-18] MEDS: ROCEPHIN 1 Gm-D5w 50 ml Bag** 1 G/50 ML IVPB IV SCH (21:46)
[2017-12-18] MEDS: Zocor 10MG PO SCH (21:46)
[2017-12-18] MEDS: Zithromax 500 MG/ 250 ML NaCl Premix 500 MG/250 ML IVPB IV SCH (23:28)
[2017-12-18] MEDS ORDERED: xanAX 0.25 MG PO ONE (23:30)
[2017-12-18] MEDS: Zithromax 250 MG TABLET PO SCH (23:36)
[2017-12-19] MEDS: Omnicef 125 MG/5 ML SUSP PO SCH ×3 (00:21→21:36)
[2017-12-19 07:15] LABS: Hematocrit 43.3 % (35-47); Hemoglobin 14.2 gm/dl (12.0-16.0); Mean Cell Volume 89.6 fl (78-100); Mean Corpuscular Hemoglobin 29.4 pg (26-32); Mean Corpuscular Hgb Concent. 32.8 g/dl (32-36); Mean Platelet Volume 10.5 fl (6-9.5); Platelet Count 164 K/mm3 (150-450); Red Blood Count 4.83 M/mm3 (4.1-5.4); Red Cell Distribution Width 16.1 % (11.5-14.0); White Blood Count 8.2 K/mm3 (4.0-10.5)
[2017-12-19 07:20] LABS: ANION GAP 6.8 MEQ/L (5-15); BLOOD UREA NITROGEN 15 mg/dL (7-17); CHLORIDE 106 mmol/L (98-107); Calcium 8.2 mg/dL (8.4-10.2); Carbon Dioxide 31 mmol/L (22-30); Creatinine 1 0.87 mg/dL (0.52-1.04); Glucose 123 mg/dL (74-106); Potassium 3.4 mmol/L (3.5-5.1); SODIUM 140 mmol/L (137-145)
--- NOTE | 2017-12-19 08:21 | PCM.NOTE ---
Date and Time: 12/19/17 08 Subjective Assessment: she had hallucinations last night seeing dogs and people in her room. She was intermittently confused as well. Her alprazolam was restarted at 0.25 mg last night after this and she has not had any of these this am. She denies any chest pain or shortness of breath. she ate all her breakfast this morning. Objective Exam General Appearance: no apparent distress, alert, thin Neurologic Exam: oriented x 3, cooperative Skin Exam: warm, dry Eye Exam: No PERRL, No scleral icterus, No pale conjunctivae Ears, Nose, Throat Exam: moist mucous membranes Neck Exam: non-tender, supple Respiratory Exam: lungs clear, No respiratory distress Cardiovascular Exam: regular rate/rhythm, normal heart sounds, normal peripheral pulses, edema (trace extremity edema) Extremity Exam: normal inspection, No calf tenderness OBJECTIVE DATA Vital Signs: Vital Signs - 24 hr Temp Pulse Resp BP Pulse Ox 12/19/17 07:30 78 18 93 L 12/19/17 07:05 98.1 F 86 18 190/85 95 12/19/17 04:05 98.1 F 80 14 170/82 95 12/19/17 04:00 16 12/19/17 00:00 14 12/18/17 23:37 98.2 F 88 18 160/85 96 12/18/17 20:00 18 12/18/17 19:47 98.0 F 87 18 162/86 95 12/18/17 16:00 98.2 F 83 18 167/73 95 12/18/17 12:00 18 12/18/17 11:39 98.4 F 79 18 165/83 96 12/18/17 11:06 92 L Oxygen-Last 24 hours O2 Percentage 3 Liters = 32% O2 Percentage 3 Liters = 32% O2 Percentage 3 Liters = 32% O2 Percentage 3 Liters = 32% O2 Percentage 3 Liters = 32% O2 Percentage 3 Liters = 32% Pain Assessment - Last Documented Pain Intensity 0 Pain Scale Used 0-10 Pain Scale Intake and Output: Intake & Output 12/16/17 12/17/17 12/18/17 12/19/17 11:59 11:59 11:59 11:59 Intake Total 847 414 1636 Output Total 060 199 5409 Balance -280 427 -8328 Weight 56.2 kg 57 kg 57.2 kg Lab Results: Accuchecks Date 12/18/17 Date 12/18/17 Date 12/18/17 Time 21:30 Time 16:30 Time 11:30 Accucheck Value: 339 Accucheck Value: 313 Accucheck Value: 165 Lab Results-Last 24 Hours 12/18/17 12/18/17 12/19/17 Range/Units 11:05 12:30 05:38 WBC 8.2 (4.0-10.5) K/mm3 RBC 4.83 (4.1-5.4) M/mm3 Hgb 14.2 (12.0-16.0) gm/dl Hct 43.3 (35-47) % MCV 89.6 (78-100) fl MCH 29.4 (26-32) pg MCHC 32.8 (32-36) g/dl RDW 16.1 H (11.5-14.0) % Plt Count 164 (150-450) K/mm3 MPV 10.5 H (6-9.5) fl Sodium (137-145) mmol/L Potassium 4.1 (3.5-5.1) mmol/L Chloride (98-107) mmol/L Carbon Dioxide (22-30) mmol/L Anion Gap (5-15) MEQ/L BUN (7-17) mg/dL Creatinine (0.52-1.04) mg/dL Estimated GFR ML/MIN Glucose 268 H (74-106) mg/dL Calcium (8.4-10.2) mg/dL Magnesium 1.7 (1.6-2.3) mg/dL TSH 3rd Generation (0.47-4.68) mIU/L 12/19/17 Range/Units 05:38 WBC (4.0-10.5) K/mm3 RBC (4.1-5.4) M/mm3 Hgb (12.0-16.0) gm/dl Hct (35-47) % MCV (78-100) fl MCH (26-32) pg MCHC (32-36) g/dl RDW (11.5-14.0) % Plt Count (150-450) K/mm3 MPV (6-9.5) fl Sodium 140 (137-145) mmol/L Potassium 3.4 L (3.5-5.1) mmol/L Chloride 106 (98-107) mmol/L Carbon Dioxide 31 H (22-30) mmol/L Anion Gap 6.8 (5-15) MEQ/L BUN 15 (7-17) mg/dL Creatinine 0.87 (0.52-1.04) mg/dL Estimated GFR > 60.0 ML/MIN Glucose 123 H (74-106) mg/dL Calcium 8.2 L (8.4-10.2) mg/dL Magnesium (1.6-2.3) mg/dL TSH 3rd Generation 1.480 (0.47-4.68) mIU/L Radiology Exams: Radiology Procedures Category Date Time Status CHEST WITHOUT CONTRAST [CT] Routine Exams 12/17/17 08:20 Completed ECHO W/2D AND DOPPLER [US] Routine Exams 12/17/17 13:55 Taken Multi-Disciplinary Progress Notes: Multi-Disciplinary Progress Notes 12/18/17 10:11 Case Management Note by Puja Sweeney LEVEL I WEB APPROVED, NO LEVEL II REQUIRED, NO SMI/ID/RC. PLACED ON PAPER CHART Initialized on 12/18/17 10:11 - END OF NOTE Assessment/Plan (1) Pneumonia Current Visit: Yes Status: Acute Onset Date: ~12/16/17 Assessment & Plan: continue antibiotics transitioned to azithromycin with cefdinir she has been afebrile and breathing well now she was very confused yesterday with hallucinations for the first time. her chronic alprazolam had been held due to her drowsiness for several doses. she was given 0.25 mg of alprazolam and no further hallucinations this am. she did eat well this am will work on getting therapy started add spironolactone for her low K, HTN, and pleural effusions. monitor k in am as she is currently on replacement with K of 3.4 as well and had recent acute kidney injury. the echo is still pending with Dr. Ochoa and thomas has done a tele cardiology consult with her on Friday yesterday am she became symptomatic hypoglycemia into the 40's resolved with an amp of D50. her lantus was decreased from 25 units to 18 units and her prandial insulin was held only sliding scale given. will restart prandial insulin at 2 units before meals was previously 5 units before meals. Code(s): J18.9 - PNEUMONIA, UNSPECIFIED ORGANISM (2) Delirium Current Visit: Yes Status: Acute Code(s): R41.0 - DISORIENTATION, UNSPECIFIED (3) Type 1 diabetes mellitus Current Visit: Yes Status: Acute Onset Date: ~08/14/17 Qualifiers: (4) Elevated troponin Current Visit: Yes Status: Acute Onset Date: ~12/16/17 Assessment & Plan: Dr. Krause fashion journalist for her wet sander Dr. Ochoa did tele cardiology consult on day of admission and the echo results are still pending. recommends optimizing medical therapy and outpatient f/u at that time. Code(s): R74.8 - ABNORMAL LEVELS OF OTHER SERUM ENZYMES (5) COPD (chronic obstructive pulmonary disease) Current Visit: Yes Status: Chronic (6) Tobacco dependence Current Visit: Yes Status: Chronic Code(s): F17.200 - NICOTINE DEPENDENCE, UNSPECIFIED, UNCOMPLICATED (7) Coronary artery disease Current Visit: No Status: Chronic Code(s): I25.10 - ATHSCL HEART DISEASE OF [place] CORONARY ARTERY W/O ANG PCTRS (8) History of heart artery stent Current Visit: Yes Status: Chronic Code(s): Z95.5 - PRESENCE OF CORONARY ANGIOPLASTY IMPLANT AND GRAFT (9) Weakness Current Visit: Yes Status: Acute Onset Date: ~12/16/17 Code(s): R53.1 - WEAKNESS (10) Hypertension Current Visit: Yes Status: Acute Code(s): I10 - ESSENTIAL (PRIMARY) HYPERTENSION (11) Acute kidney injury Current Visit: Yes Status: Resolved Onset Date: ~12/17/17 Code(s): N17.9 - ACUTE KIDNEY FAILURE, UNSPECIFIED
[2017-12-19] MEDS: Nicoderm CQ 21 MG TOP SCH (09:36)
[2017-12-19] MEDS: K-LYTE 25 MEQ PO SCH ×2 (09:37→14:35)
[2017-12-19] MEDS: Coreg 6.25 MG PO SCH ×2 (09:39→21:30)
[2017-12-19] MEDS: Aldactone 25 MG PO SCH ×2 (09:39→21:30)
[2017-12-19] MEDS: Cymbalta 30 MG Capsule PO SCH (09:40)
[2017-12-19] MEDS: ECOTRIN 81 MG PO SCH (09:40)
[2017-12-19] MEDS: NORVASC 5 MG PO SCH (09:41)
[2017-12-19] MEDS: ENOXAPARIN SODIUM SQ SCH (09:41)
[2017-12-19] MEDS: SYNTHROID 25 MCG PO SCH (09:42)
[2017-12-19] MEDS: Pepcid 20 MG PO SCH ×2 (09:42→21:29)
[2017-12-19] MEDS: xanAX 0.25 MG PO SCH ×2 (09:43→21:30)
[2017-12-19] MEDS: Zithromax 250 MG TABLET PO SCH (09:43)
[2017-12-19] MEDS: NovoLOG Insulin SQ PRN ×3 (11:28→21:30)
[2017-12-19] MEDS: NovoLOG Insulin SQ SCH ×2 (11:29→16:59)
[2017-12-19] MEDS: Zocor 10MG PO SCH (21:29)
[2017-12-19] MEDS: Lantus Insulin SQ SCH (21:31)
[2017-12-19] MEDS ORDERED: Klor Con 10 MEQ PO SCH (22:00)
[2017-12-20] MEDS: ULTRAM 50 MG PO PRN ×2 (01:25→21:29)
[2017-12-20 05:54] LABS: ANION GAP 9.7 MEQ/L (5-15); BLOOD UREA NITROGEN 12 mg/dL (7-17); CHLORIDE 103 mmol/L (98-107); Calcium 7.8 mg/dL (8.4-10.2); Carbon Dioxide 34 mmol/L (22-30); Glucose 131 mg/dL (74-106); SODIUM 144 mmol/L (137-145)
[2017-12-20 06:12] LABS: Potassium 2.9 mmol/L (3.5-5.1)
[2017-12-20] MEDS: NovoLOG Insulin SQ SCH ×3 (07:31→17:11)
[2017-12-20] MEDS: Nicoderm CQ 21 MG TOP SCH (08:22)
[2017-12-20] MEDS: POTASSIUM CHLORIDE 20 mEq IN WATER 100ML 20 MEQ/100 ML BAG IV SCH ×2 (08:23→11:05)
[2017-12-20] MEDS: ENOXAPARIN SODIUM SQ SCH (09:29)
[2017-12-20] MEDS: Cymbalta 30 MG Capsule PO SCH (09:29)
[2017-12-20] MEDS: Zithromax 250 MG TABLET PO SCH (09:30)
[2017-12-20] MEDS: Klor Con 10 MEQ PO SCH ×3 (09:30→21:07)
[2017-12-20] MEDS: Pepcid 20 MG PO SCH ×2 (09:30→21:07)
[2017-12-20] MEDS: Aldactone 25 MG PO SCH ×3 (09:30→21:06)
[2017-12-20] MEDS: ECOTRIN 81 MG PO SCH (09:31)
[2017-12-20] MEDS: xanAX 0.25 MG PO SCH ×2 (09:31→21:08)
[2017-12-20] MEDS: NORVASC 5 MG PO SCH (09:31)
[2017-12-20] MEDS: SYNTHROID 25 MCG PO SCH (09:31)
[2017-12-20] MEDS: Coreg 6.25 MG PO SCH ×2 (09:31→21:06)
[2017-12-20] MEDS: Omnicef 125 MG/5 ML SUSP PO SCH ×2 (09:36→21:29)
[2017-12-20] MEDS: Lotensin 10 MG PO SCH (09:36)
[2017-12-20] MEDS: Lopressor 25MG Tab PO SCH ×2 (09:36→21:07)
[2017-12-20] MEDS: IMODIUM 2 MG PO SCH ×3 (11:54→21:06)
[2017-12-20] MEDS: Zofran 4 MG/2 ML VIAL IV PRN ×2 (11:56→20:40)
[2017-12-20] MEDS: Lantus Insulin SQ SCH (21:07)
[2017-12-20] MEDS: Zocor 10MG PO SCH (21:08)
[2017-12-20] MEDS: NovoLOG Insulin SQ PRN (21:08)
[2017-12-21] MEDS: IMODIUM 2 MG PO SCH ×4 (07:45→21:30)
[2017-12-21] MEDS: Nicoderm CQ 21 MG TOP SCH (07:45)
[2017-12-21] MEDS: NovoLOG Insulin SQ SCH ×3 (07:46→16:38)
[2017-12-21] MEDS: ENOXAPARIN SODIUM SQ SCH (09:37)
[2017-12-21] MEDS: Coreg 6.25 MG PO SCH ×2 (09:38→21:30)
[2017-12-21] MEDS: SYNTHROID 25 MCG PO SCH (09:38)
[2017-12-21] MEDS: Zithromax 250 MG TABLET PO SCH (09:38)
[2017-12-21] MEDS: Cymbalta 30 MG Capsule PO SCH (09:38)
[2017-12-21] MEDS: Lotensin 10 MG PO SCH (09:39)
[2017-12-21] MEDS: ECOTRIN 81 MG PO SCH (09:39)
[2017-12-21] MEDS: xanAX 0.25 MG PO SCH ×2 (09:39→21:32)
[2017-12-21] MEDS: Lopressor 25MG Tab PO SCH ×2 (09:39→21:31)
[2017-12-21] MEDS: Aldactone 25 MG PO SCH ×3 (09:39→21:30)
[2017-12-21] MEDS: Pepcid 20 MG PO SCH ×2 (09:39→21:31)
[2017-12-21] MEDS: NORVASC 5 MG PO SCH (09:39)
[2017-12-21] MEDS: Klor Con 10 MEQ PO SCH ×3 (09:41→21:30)
[2017-12-21] MEDS: Omnicef 125 MG/5 ML SUSP PO SCH (09:44)
[2017-12-21] MEDS: Lantus Insulin SQ SCH (21:31)
[2017-12-21] MEDS: NON-FORMULARY ITEM PO SCH (21:31)
[2017-12-21] MEDS: NovoLOG Insulin SQ PRN (21:32)
[2017-12-21] MEDS: ULTRAM 50 MG PO PRN (21:32)
[2017-12-21] MEDS: Zocor 10MG PO SCH (21:32)
[2017-12-22 06:31] LABS: ANION GAP 6.5 MEQ/L (5-15); BLOOD UREA NITROGEN 14 mg/dL (7-17); CHLORIDE 105 mmol/L (98-107); Carbon Dioxide 33 mmol/L (22-30); Creatinine 1 0.85 mg/dL (0.52-1.04); Potassium 3.6 mmol/L (3.5-5.1); SODIUM 141 mmol/L (137-145)
[2017-12-22 06:45] LABS: Glucose 42 mg/dL (74-106)
[2017-12-22] MEDS: xanAX 0.25 MG PO SCH (07:39)
[2017-12-22] MEDS: NORVASC 5 MG PO SCH (07:39)
[2017-12-22] MEDS: ECOTRIN 81 MG PO SCH (07:39)
[2017-12-22] MEDS: Klor Con 10 MEQ PO SCH (07:40)
[2017-12-22] MEDS: Zithromax 250 MG TABLET PO SCH (07:40)
[2017-12-22] MEDS: Aldactone 25 MG PO SCH (07:40)
[2017-12-22] MEDS: Lopressor 25MG Tab PO SCH (07:40)
[2017-12-22] MEDS: SYNTHROID 25 MCG PO SCH (07:40)
[2017-12-22] MEDS: IMODIUM 2 MG PO SCH ×2 (07:40→11:40)
[2017-12-22] MEDS: Cymbalta 30 MG Capsule PO SCH (07:40)
[2017-12-22] MEDS: Coreg 6.25 MG PO SCH (07:40)
[2017-12-22] MEDS: Pepcid 20 MG PO SCH (07:40)
[2017-12-22] MEDS: Lotensin 10 MG PO SCH (07:40)
[2017-12-22] MEDS: NovoLOG Insulin SQ SCH ×2 (07:41→11:46)
[2017-12-22] MEDS: ENOXAPARIN SODIUM SQ SCH (07:41)
[2017-12-22] MEDS: Nicoderm CQ 21 MG TOP SCH (07:41)
[2017-12-22] MEDS: NON-FORMULARY ITEM PO SCH (07:44)
--- NOTE | 2017-12-22 08:10 | PCM.DS ---
Discharge Summary Date of Admission: 12/16/17 23:49 Date of Discharge: 12/22/17 Admitting Physician: KERI ANTHONY Consults: Consults on Case 12/17/17 08:21 Cardiology Consult [Notify Customer Advisor of Admit] ROUTINE 12/20/17 08:44 Consult Nephrology ROUTINE Primary Care Provider: KERI ANTHONY Allergies Allergies No Known Drug Allergies Allergy (Verified 12/16/17 19:22) Hospital Summary - Vitals & Intake/Output Vital Signs: Vital Signs Temperature 98.1 F 12/22/17 07:23 Pulse Rate 65 12/22/17 07:23 Respiratory Rate 16 12/22/17 08:00 Blood Pressure 196/91 12/22/17 07:23 O2 Sat by Pulse Oximetry 95 12/22/17 07:23 Oxygen-Last Documented O2 Percentage 3 Liters = 32% Intake & Output: Intake & Output 12/19/17 12/20/17 12/21/17 12/22/17 11:59 11:59 11:59 11:59 Intake Total 1305 636 824 4489 Output Total 4900 1750 1300 700 Balance -3595 -1270 -500 480 Weight 57.2 kg 55 kg 55.2 kg 55.1 kg - Lab Result Diagrams: 12/19/17 05:38 12/22/17 05:07 Lab Results-Last 24 Hrs: Accuchecks Date 12/21/17 Date 12/21/17 Time 16:12 Time 11:30 Accucheck Value: 307 Accucheck Value: 184 Accucheck Value: 164 Lab Results-Last 24 Hours 12/22/17 Range/Units 05:07 Sodium 141 (137-145) mmol/L Potassium 3.6 (3.5-5.1) mmol/L Chloride 105 (98-107) mmol/L Carbon Dioxide 33 H (22-30) mmol/L Anion Gap 6.5 (5-15) MEQ/L BUN 14 (7-17) mg/dL Creatinine 0.85 (0.52-1.04) mg/dL Estimated GFR > 60.0 ML/MIN Glucose 42 L* (74-106) mg/dL Calcium 8.0 L (8.4-10.2) mg/dL Micro Results-Entire Visit: Microbiology 12/16/17 19:30 Blood Culture Gram Stain - Final Blood Not Reportable Blood Culture - Final NO GROWTH 12/16/17 19:15 Blood Culture Gram Stain - Final Blood Not Reportable Blood Culture - Final NO GROWTH 12/16/17 20:13 Urine Culture - Final Urine, Catheterized NO GROWTH Accuchecks Date 12/21/17 Date 12/21/17 Time 16:12 Time 11:30 Accucheck Value: 307 Accucheck Value: 184 Accucheck Value: 164 - Procedures and Test Procedures and Tests throughout Hospitalization: Therapy Orders & Screens 12/17/17 00:12 Oxygen NASAL CANNULA 3 lpm Comment: as per home Diagnosis: HYPERGLYCEMIA/PNEUMONIA 12/17/17 01:06 OT Screen per Nursing Assess ONCE Comment: Protocol Order Physician Instructions: Greater than 3 points order OT Admission Screening Reason For Exam: Triggered on Admission Diagnosis: HYPERGLYCEMIA/PNEUMONIA Open Wound/Cellutlitis/Pressure Ulcers: Yes Acute Fx/ORIF/Change in wt bearing status: No Severe MUSCULOSKELETAL pain: No ADL Dysfunction: No Acute CVA w/Hemiparesis/Hemiplegia: No Decreased Functional Mobility/Strength: No Sprain/Strain: No Acute Post-op Mobility Dysfunction: No Total Points: 5 PT Screen per Nursing Assess ONCE Comment: Protocol Order Physician Instructions: Greater than 3 points order PT Admission Screenin Reason For Exam: Triggered on Admission Diagnosis: HYPERGLYCEMIA/PNEUMONIA Open Wound/Cellutlitis/Pressure Ulcers: Yes Acute Fx/ORIF/Change in wt bearing status: No Severe MUSCULOSKELETAL pain: No ADL Dysfunction: No Acute CVA w/Hemiparesis/Hemiplegia: No Decreased Functional Mobility/Strength: No Sprain/Strain: No Acute Post-op Mobility Dysfunction: No Total Points: 5 RT Screen per Nursing Assess ONCE Comment: Protocol Order Physician Instructions: Greater than 3 points order RT Admission Screen Reason For Exam: Triggered on Admission Diagnosis: HYPERGLYCEMIA/PNEUMONIA Diagnosis: HYPERGLYCEMIA/PNEUMONIA Pneumonia: Yes Home O2: Yes: 3L Asthma: No CHF: No Home CPAP/BIPAP: No Home Nebs/MDI: No Total Points: 8 Smoking Cessation Education ONCE Comment: Diagnosis: HYPERGLYCEMIA/PNEUMONIA Smoking Status: Current every day smoker How long have you smoked: 35 years Have you smoked in the past 12 months: Yes Approximately how many cigarettes per day: 2 pack Do you dip or chew tobacco: No ST Screen per Nursing Assess once Comment: Protocol Order Physician Instructions: Greater than [address] Admission Screening Reason For Exam: Triggered on Admission Diagnosis: HYPERGLYCEMIA/PNEUMONIA CVA/Dyshpagia/Aphasia: No Cognitive Deficits: No Dehydration/Nutrition Deficit: Yes Reflux: Yes Oral-Motor Difficulties: No Pneumonia: Yes Retirement Resident: No Total Points: 13 12/17/17 05:40 EKG ROUTINE Comment: Diagnosis: HYPERGLYCEMIA/PNEUMONIA 12/17/17 07:01 Respiratory Therapy Assessment DAILY Comment: Diagnosis: HYPERGLYCEMIA/PNEUMONIA 12/18/17 05:00 EKG ROUTINE Comment: Diagnosis: HYPERGLYCEMIA/PNEUMONIA 12/19/17 05:00 EKG ROUTINE Comment: Diagnosis: HYPERGLYCEMIA/PNEUMONIA 12/19/17 08:25 PT Eval & Treat (MD Order) ROUTINE Reason for Eval:: weakness gait instabiliity Diagnosis: HYPERGLYCEMIA/PNEUMONIA,ACUTE KIDNEY INJURY R/T DEHYDRATION 12/20/17 05:00 EKG ROUTINE Comment: Diagnosis: HYPERGLYCEMIA/PNEUMONIA Final Diagnosis/Problem List - Final Discharge Diagnosis/Problem (1) Pneumonia Current Visit: Yes Status: Acute Onset Date: ~12/16/17 (2) Delirium Current Visit: Yes Status: Acute (3) Type 1 diabetes mellitus Current Visit: Yes Status: Acute Onset Date: ~08/14/17 (4) Elevated troponin Current Visit: Yes Status: Acute Onset Date: ~12/16/17 (5) COPD (chronic obstructive pulmonary disease) Current Visit: Yes Status: Chronic (6) Tobacco dependence Current Visit: Yes Status: Chronic (7) Coronary artery disease Current Visit: No Status: Chronic (8) History of heart artery stent Current Visit: Yes Status: Chronic (9) Weakness Current Visit: Yes Status: Acute Onset Date: ~12/16/17 (10) Hypertension Current Visit: Yes Status: Acute (11) Acute kidney injury Current Visit: Yes Status: Resolved Onset Date: ~12/17/17 - Discharge Disposition: Home, Self-Care Condition: Fair Prescriptions: New Spironolactone 25 mg [Aldactone 25 MG] 25 mg PO TID #90 tablet Carvedilol 12.5 mg [Coreg 12.5 mg] 12.5 mg PO BID #60 tablet Aspirin EC 81 mg [Ecotrin 81 mg] 81 mg PO DAILY #90 tablet.ec Potassium Chloride 10 Meq Tab* [Klor Con 10 MEQ] 10 meq PO DAILY #90 tab Benazepril HCl 10 mg [Lotensin 10 MG] 10 mg PO QAM #30 tablet Continue Pravastatin Sodium [Pravachol] 10 mg PO HS Levothyroxine Sodium 25 Mcg [Synthroid 25 Mcg] 25 mcg PO DAILY Tramadol HCl 50 mg [Ultram 50 mg] 50 mg PO QAM Ranitidine HCl [Zantac] 300 mg PO BID Alprazolam 0.5 mg [xanAX 0.5 MG] 1 tab PO BID Amlodipine Besylate 5 mg PO DAILY Duloxetine HCl 60 mg PO DAILY Changed Insulin Glargine,Hum.rec.anlog [Lantus] 18 unit SQ HS #0 Insulin Aspart [NovoLOG Insulin] 3 units SQ AC #0 Discontinued Gabapentin 600 mg PO TID Carvedilol 3.125 mg [Coreg 3.125 MG] 3.125 mg PO BID Additional Instructions: Your appointment scheduled for December 31 has been cancelled [address] Munoz. Have blood work done (BMP) 12/25/2017 Follow up with: MARSHA MUNOZ [CONSULTING PHYSICIAN] - 12/24/17 10:00 am ([facility] ) KERI ANTHONY [Primary Care Provider] - 1 Week SHENA HANKS [CONSULTING PHYSICIAN] - 1 Week
[2017-12-22] MEDS ORDERED: COREG 12.5 MG PO SCH (10:00)
[2017-12-22 11:45] VITALS: BP 171/78; PULSE 70; O2SAT 99
--- NOTE | 2017-12-23 07:45 | ECHO ---
DATE OF PROCEDURE: 12/17/2017 CLINICAL INFORMATION: Elevated troponin. The M-mode 2D, and Doppler echocardiogram including color flow Doppler shows normal contractibility of the left ventricle with an ejection fraction calculated at 77%. The left ventricle is normal in size at 3.8 cm. There is no apical thrombus present. The septal wall thickness is normal at 1.0 cm. The left ventricular posterior wall thickness is normal at 1.0 cm. The right ventricle is grossly normal in size and function. The left atrium is normal at 3.9 cm. The interatrial septum is intact. The right atrium is normal. The aortic valve opens well. There is mitral valve leaflet thickening. There is moderate tricuspid regurgitation. The right ventricular systolic pressure is elevated at 59 mm of [place]. The pulmonic valve is not well visualized. The aortic root is normal at 2.2 cm. There is no pericardial effusion present. IMPRESSION: 1) NORMAL CONTRACTILITY OF THE LEFT VENTRICLE. 2) MODERATE TRICUSPID REGURGITATION. 3) MODEATE PULMONARY HYPERTENSION. 4) LEFT PLEURAL EFFUSION.
[2017-12-23 12:32] LABS: Total Volume 1000 mL
== END 2017-12-22 13:05 | disposition home or self-care (01) | DRG 194 ==
LOC: ED 19:08 → MED SURG 23:49 → OBSVTOIN 23:49 → INTOOBSV 12-17 08:36 → OBSVTOIN 12-17 08:36
PROVIDERS: ADMIT Family Medicine; ATTEND Family Medicine
DX: E10.65 Type 1 diabetes mellitus with hyperglycemia (principal); N17.9 Acute kidney failure, unspecified; R41.0 Disorientation, unspecified; J18.9 Pneumonia, unspecified organism; E86.0 Dehydration; Z79.4 Long term (current) use of insulin; R74.8 Abnormal levels of other serum enzymes; F17.200 Nicotine dependence, unspecified, uncomplicated; Z72.0 Tobacco use; R53.1 Weakness; Z79.899 Other long term (current) drug therapy; Z95.5 Presence of coronary angioplasty implant and graft; E78.00 Pure hypercholesterolemia, unspecified; J44.9 Chronic obstructive pulmonary disease, unspecified; I25.2 Old myocardial infarction; F41.9 Anxiety disorder, unspecified; K21.9 Gastro-esophageal reflux disease without esophagitis; Z85.41 Personal history of malignant neoplasm of cervix uteri; L89.152 Pressure ulcer of sacral region, stage 2; I10 Essential (primary) hypertension; I25.10 Atherosclerotic heart disease of native coronary artery without angina pectoris
CPT/HCPCS: 36415; 70450; 71045; 71250; 80048; 80053; 80061; 81001; 82088; 82805; 82947; 82962; 83721; 83735; 83880; 83935; 84132; 84156; 84244; 84443; 84484; 85025; 85027; 86335; 87040; 87086; 87493; 93005; 93041; 93306; 94250; 94760; 96360; 96361; 96365; 96367; 96374; 99285; J0456; J0696; J1650; J2405; J3480; Q3014; A9270-GY; G0378

== ENCOUNTER 2018-03-19 10:56 | Emergency (ER) | payer MEDICARE ==
[2018-03-19] MEDS ORDERED: NovoLIN R IV ONE (11:11)
[2018-03-19] MEDS ORDERED: Zofran 4 MG/2 ML VIAL IV ONE (11:11)
[2018-03-19] MEDS ORDERED: Sodium Chloride 0.9% 1000 ML 1,000 ML IV STA (11:11)
--- NOTE | 2018-03-19 11:12 | ERPHSYRPT ---
- History of Present Illness Time Seen by Provider: 03/19/18 11:07 Source: patient, EMS Exam Limitations: clinical condition Physician History: 68 y/o diabetic white female presents with 3 day h/o not feeling well. she feels weak. she was having a hard time thinking today. bs >500 at home. pt brought into ED by EMS. pt is a [facility] pt on hospice for end stage lung dz. per [facility], pt has episodes of this confusion often. sx typically resolve with control of blood glucose and ivf..trey on their way here to aid in formulating a plan. Timing/Duration: day(s) (3), worse Severity: moderate Character of Deficits: new weakness, other (impaired thinking) Deficits: cannot stand, cannot walk Baseline/Normal Cognition: alert oriented x 3 Current Cognition: alert but confused Baseline Gait: walks w/o assistance Associated Symptoms: confusion, weakness Allergies/Adverse Reactions: No Known Drug Allergies Allergy (Verified 12/16/17 19:22) Home Medications: Levothyroxine Sodium 25 Mcg [Synthroid 25 Mcg] 25 mcg PO DAILY 02/27/17 [ History] Pravastatin Sodium [Pravachol] 10 mg PO HS 02/27/17 [History] Ranitidine HCl [Zantac] 300 mg PO BID 07/19/17 [History] Tramadol HCl 50 mg [Ultram 50 mg] 50 mg PO QAM 07/19/17 [History] Alprazolam 0.5 mg [xanAX 0.5 MG] 1 tab PO BID 08/14/17 [History] Amlodipine Besylate 5 mg PO DAILY 11/27/17 [History] Duloxetine HCl 60 mg PO DAILY 11/27/17 [History] Hx Tetanus, Diphtheria Vaccination/Date Given: Yes Hx Influenza Vaccination/Date Given: Yes Hx Pneumococcal Vaccination/Date Given: Yes - Review of Systems Constitutional: Weakness Eyes: No Symptoms Ears, Nose, & Throat: No Symptoms Respiratory: No Symptoms Cardiac: No Symptoms Abdominal/Gastrointestinal: No Symptoms Genitourinary Symptoms: No Symptoms, No Dysuria, No Hematuria Musculoskeletal: No Symptoms Skin: No Symptoms Neurological: Lethargy Psychological: Other (memory changes) Endocrine: No Symptoms Hematologic/Lymphatic: No Symptoms Immunological/Allergic: No Symptoms All Other Systems: Reviewed and Negative - Past Medical History Pertinent Past Medical History: Yes Neurological History: No Pertinent History ENT History: Cataracts Cardiac History: High Cholesterol, Myocardial Infarction (DE) Respiratory History: COPD Endocrine Medical History: Diabetes Type I Musculoskeletal History: Degenerative Disk Disease GI Medical History: GERD History: No Pertinent History Psycho-Social History: Anxiety Female Reproductive Disorders: Cervical Cancer Other Medical History: chronic back pain - Past Surgical History Past Surgical History: Yes Neuro Surgical History: No Pertinent History Cardiac: Cardiac Catheterization, Cardiac Stent Respiratory: No Pertinent History Gastrointestinal: Appendectomy, Cholecystectomy Genitourinary: No Pertinent History Musculoskeletal: Orthopedic Surgery Female Surgical History: Hysterectomy Other Surgical History: RIGHT HIP SURGERY ball placed, BACK SURGERY -unknown - Social History Smoking Status: Current every day smoker How long have you smoked: 35 years Exposure to second hand smoke: Yes Drug Use: none Patient Lives Alone: No - Nursing Vital Signs Nursing Vital Signs: Initial Vital Signs Temperature 99.0 F 03/19/18 11:07 Pulse Rate 95 H 03/19/18 11:07 Respiratory Rate 20 03/19/18 11:07 Blood Pressure 196/94 03/19/18 11:07 O2 Sat by Pulse Oximetry 96 03/19/18 11:07 Pain Scale Pain Intensity 0 - Mauro Coma Scale Best Eye Response ([place]): (4) open spontaneously Best Verbal Response ([place]): (5) oriented Best Motor Response ([place]): (6) obeys commands Mauro Total: 15 - Physical Exam General Appearance: mild distress, alert, lethargy Eye Exam: bilateral eye: normal inspection, PERRL, EOMI Ears, Nose, Throat Exam: dry mucous membranes, other (fruity odor) Neck Exam: normal inspection, non-tender, supple, full range of motion Respiratory: normal breath sounds, lungs clear, airway intact, No chest tenderness, No respiratory distress, No accessory muscle use, No rhonchi, No wheezing, No stridor Cardiovascular: regular rate/rhythm, normal heart sounds, normal peripheral pulses Gastrointestinal: soft, normal bowel sounds, No tenderness, No guarding, No rebound Pelvic Exam: not done Rectal Exam: not done Back Exam: normal inspection, normal range of motion, No CVA tenderness, No vertebral tenderness Extremity Exam: normal inspection, normal range of motion, pelvis stable Mental Status: disoriented to person, disoriented to place, intoxicated appearance, lethargy, other (pt unable to find appropriate words to answer questions) 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 Exam: normal hearing, abnormal speech, tongue midline Skin Exam: normal color, warm, dry SpO2 Interpretation: normal, borderline oxygenation Oxygen Delivery: Room Air - Course Nursing assessment & vital signs reviewed: Yes Ordered Tests: Active Orders 24 hr Category Date Time Status Accucheck STAT Care 03/19/18 11:11 Active Export Agent STAT Care 03/19/18 11:12 Active Clean Catch Urine Specimen STAT Care 03/19/18 11:11 Active IV Insertion STAT Care 03/19/18 11:11 Active CBC W DIFF Stat Lab 03/19/18 11:30 Completed CMP Stat Lab 03/19/18 11:30 Completed CULTURE,URINE Stat Lab 03/19/18 11:30 Received Lactic Acid Stat Lab 03/19/18 13:58 Completed Lactic Acid Urgent Lab 03/19/18 11:30 Completed UA W/RFX UR CULTURE Stat Lab 03/19/18 11:30 Completed Medication Summary Generic Name Dose Route Start Last Admin Trade Name Freq PRN Reason Stop Dose Admin Sodium Chloride 1,000 mls @ 250 mls/hr 03/19/18 13:45 03/19/18 13:48 Sodium Chloride 0.9% 1000 Ml IV 04/18/18 13:44 250 mls/hr .Q4H DENNIS Administration Discontinued Medications Generic Name Dose Route Start Last Admin Trade Name Freq PRN Reason Stop Dose Admin Sodium Chloride 1,000 mls @ 999 mls/hr 03/19/18 11:11 03/19/18 13:48 Sodium Chloride 0.9% 1000 Ml IV 03/19/18 12:11 Not Given .Q1H1M STA Insulin Human Regular 20 unit 03/19/18 11:11 03/19/18 11:59 Novolin R IV 03/19/18 11:12 20 unit STAT ONE Administration Insulin Human Regular Confirm 03/19/18 11:52 Novolin R Administered 03/19/18 11:53 Dose 20 unit .ROUTE .STK-MED ONE Ondansetron HCl 4 mg 03/19/18 11:11 03/19/18 11:59 Zofran 4 Mg/2 Ml Vial IV 03/19/18 11:12 4 mg STAT ONE Administration Ondansetron HCl Confirm 03/19/18 11:50 Zofran 4 Mg/2 Ml Vial Administered 03/19/18 11:51 Dose 4 mg .ROUTE .STK-MED ONE Lab/Rad Data: Laboratory Result Diagrams 03/19/18 11:30 03/19/18 11:30 Laboratory Results 03/19/18 03/19/18 03/19/18 Range/Units 13:58 11:30 11:30 WBC (4.0-10.5) K/mm3 RBC (4.1-5.4) M/mm3 Hgb (12.0-16.0) gm/dl Hct (35-47) % MCV (78-100) fl MCH (26-32) pg MCHC (32-36) g/dl RDW (11.5-14.0) % Plt Count (150-450) K/mm3 MPV (6-9.5) fl Gran % (36.0-66.0) % Eos # (Auto) (0-0.5) Absolute Lymphs (auto) (1.0-4.6) Absolute Monos (auto) (0.0-1.3) Lymphocytes % (24.0-44.0) % Monocytes % (0.0-12.0) % Eosinophils % (0.00-5.0) % Basophils % (0.0-0.4) % Absolute Granulocytes (1.4-6.9) Basophils # (0-0.4) Sodium (137-145) mmol/L Potassium (3.5-5.1) mmol/L Chloride (98-107) mmol/L Carbon Dioxide (22-30) mmol/L Anion Gap (5-15) MEQ/L BUN (7-17) mg/dL Creatinine (0.52-1.04) mg/dL Estimated GFR ML/MIN Glucose (74-106) mg/dL Lactic Acid 1.5 2.2 H (0.4-2.0) Calcium (8.4-10.2) mg/dL Total Bilirubin (0.2-1.3) mg/dL AST (14-36) U/L ALT (0-35) U/L Alkaline Phosphatase (38-126) U/L Serum Total Protein (6.3-8.2) g/dL Albumin (3.5-5.0) g/dL Urine Color YELLOW (YELLOW) Urine Appearance CLEAR (CLEAR) Urine pH 6.0 (5-6) Ur Specific [place] 1.016 (1.005-1.025) Urine Protein 100 (Negative) Urine Ketones SMALL (NEGATIVE) Urine Blood SMALL (0-5) George/ul Urine Nitrite NEGATIVE (NEGATIVE) Urine Bilirubin NEGATIVE (NEGATIVE) Urine Urobilinogen NEGATIVE (0-1) mg/dL Ur Leukocyte Esterase TRACE (NEGATIVE) Urine WBC (Auto) 6-10 (0-5) /HPF Urine RBC (Auto) 0-2 (0-2) /HPF U Epithel Cells (Auto) RARE (FEW) /HPF Urine Bacteria (Auto) RARE (NEGATIVE) /HPF Urine Culture Reflexed YES (NO) Urine Glucose >=500 (NEGATIVE) mg/dL 03/19/18 03/19/18 Range/Units 11:30 11:30 WBC 9.3 (4.0-10.5) K/mm3 RBC 3.56 L (4.1-5.4) M/mm3 Hgb 10.9 L (12.0-16.0) gm/dl Hct 35.1 (35-47) % MCV 98.6 (78-100) fl MCH 30.6 (26-32) pg MCHC 31.1 L (32-36) g/dl RDW 14.8 H (11.5-14.0) % Plt Count 218 (150-450) K/mm3 MPV 11.3 H (6-9.5) fl Gran % 80.9 H (36.0-66.0) % Eos # (Auto) 0.01 (0-0.5) Absolute Lymphs (auto) 1.21 (1.0-4.6) Absolute Monos (auto) 0.54 (0.0-1.3) Lymphocytes % 13.0 L (24.0-44.0) % Monocytes % 5.8 (0.0-12.0) % Eosinophils % 0.1 (0.00-5.0) % Basophils % 0.2 (0.0-0.4) % Absolute Granulocytes 7.51 H (1.4-6.9) Basophils # 0.02 (0-0.4) Sodium 141 (137-145) mmol/L Potassium 5.0 (3.5-5.1) mmol/L Chloride 102 (98-107) mmol/L Carbon Dioxide 17 L (22-30) mmol/L Anion Gap 26.2 H (5-15) MEQ/L BUN 33 H (7-17) mg/dL Creatinine 1.43 H (0.52-1.04) mg/dL Estimated GFR 38.8 ML/MIN Glucose 608 H* (74-106) mg/dL Lactic Acid (0.4-2.0) Calcium 9.2 (8.4-10.2) mg/dL Total Bilirubin 0.60 (0.2-1.3) mg/dL AST 10 L (14-36) U/L ALT 12 (0-35) U/L Alkaline Phosphatase 112 (38-126) U/L Serum Total Protein 6.1 L (6.3-8.2) g/dL Albumin 3.3 L (3.5-5.0) g/dL Urine Color (YELLOW) Urine Appearance (CLEAR) Urine pH (5-6) Ur Specific [place] (1.005-1.025) Urine Protein (Negative) Urine Ketones (NEGATIVE) Urine Blood (0-5) George/ul Urine Nitrite (NEGATIVE) Urine Bilirubin (NEGATIVE) Urine Urobilinogen (0-1) mg/dL Ur Leukocyte Esterase (NEGATIVE) Urine WBC (Auto) (0-5) /HPF Urine RBC (Auto) (0-2) /HPF U Epithel Cells (Auto) (FEW) /HPF Urine Bacteria (Auto) (NEGATIVE) /HPF Urine Culture Reflexed (NO) Urine Glucose (NEGATIVE) mg/dL - Progress Progress: unchanged Progress Note: 03/19/18 15:36 pt is a hospice pt. she is end stage copd. pts family wants comfort care only. spoke with Moises with [facility] plan is to discharge pt to [facility], comfort care only, nonaggressive care to be directed by [facility] Dr. Owusu. Counseled pt/family regarding: lab results, diagnosis, need for follow-up - Departure Time of Disposition: 15:39 Departure Disposition: Extended Care Facility ([facility] Clinical Impression: DKA (diabetic ketoacidoses), UTI (urinary tract infection) Condition: Fair Critical Care Time: Yes Critical Care Time(excluding separately billable procedures): 30-74 minutes Referrals: KERI ANTHONY [Primary Care Provider] - Additional Instructions: further care by [facility]
[2018-03-19 11:31] LABS: BASOPHIL % 0.2 % (0.0-0.4); Basophil (Absolute #) 0.02 (0-0.4); Eosinophil % 0.1 % (0.00-5.0); Eosinophil (Absolute #) 0.01 (0-0.5); Granulocyte Absolute (ANC) 7.51 (1.4-6.9); Granulocytes % 80.9 % (36.0-66.0); Hematocrit 35.1 % (35-47); Hemoglobin 10.9 gm/dl (12.0-16.0); Lymphocyte (Absolute #) 1.21 (1.0-4.6); Mean Cell Volume 98.6 fl (78-100); Mean Corpuscular Hemoglobin 30.6 pg (26-32); Mean Corpuscular Hgb Concent. 31.1 g/dl (32-36); Mean Platelet Volume 11.3 fl (6-9.5); Monocyte (Absolute #) 0.54 (0.0-1.3); Monocytes % 5.8 % (0.0-12.0); Platelet Count 218 K/mm3 (150-450); Red Blood Count 3.56 M/mm3 (4.1-5.4); Red Cell Distribution Width 14.8 % (11.5-14.0); White Blood Count 9.3 K/mm3 (4.0-10.5)
[2018-03-19 11:32] LABS: Lactic Acid 2.2 (0.4-2.0)
[2018-03-19 11:37] LABS: Appearance CLEAR (CLEAR); Bilirubin NEGATIVE (NEGATIVE); Blood SMALL Ery/ul (0-5); Glucose >=500 mg/dL (NEGATIVE); Ketones SMALL (NEGATIVE); Leukocyte Esterase TRACE (NEGATIVE); Nitrite NEGATIVE (NEGATIVE); Protein,Urine Dip 100 (Negative); Specific Gravity 1.016 (1.005-1.025); Urobilinogen NEGATIVE mg/dL (0-1)
[2018-03-19 11:41] LABS: ALBUMIN 3.3 g/dL (3.5-5.0); ANION GAP 26.2 MEQ/L (5-15); BILIRUBIN,TOTAL 0.6 mg/dL (0.2-1.3); Calcium 9.2 mg/dL (8.4-10.2); Creatinine 1 1.43 mg/dL (0.52-1.04); Total Protein 6.1 g/dL (6.3-8.2)
[2018-03-19] MEDS ORDERED: Zofran 4 MG/2 ML VIAL ONE (11:50)
[2018-03-19] MEDS ORDERED: NovoLIN R ONE (11:52)
[2018-03-19] MEDS ORDERED: Sodium Chloride 0.9% 1000 ML 1,000 ML IV SCH (13:45)
[2018-03-19 13:47] VITALS: O2SAT 95
[2018-03-19] MEDS ORDERED: Sodium Chloride 0.9% 1000 ML 1,000 ML ONE (13:47)
[2018-03-19 15:23] VITALS: BP 179/83; PULSE 112
== END 2018-03-19 16:30 ==
LOC: ED 10:56
DX: E10.10 Type 1 diabetes mellitus with ketoacidosis without coma (principal); N39.0 Urinary tract infection, site not specified; J44.9 Chronic obstructive pulmonary disease, unspecified; R53.1 Weakness; Z79.899 Other long term (current) drug therapy; I25.2 Old myocardial infarction; Z85.41 Personal history of malignant neoplasm of cervix uteri
CPT/HCPCS: 36415; 80053; 81001; 82962; 83605; 85025; 87077; 87086; 87186; 93041; 96360; 96361; 96372; 96374; 96375; 99284; J2405; A9270-GY